=== PATIENT | female | born 1950 | race Caucasian/White ===

== ENCOUNTER 2023-04-09 14:30 | Observation (INO) | payer OTHER ==
[2023-04-09 14:56] LABS: Absolute Lymphocytes (CBC) 1.5 K/uL (0.7-4.9); Hematocrit 39.8 % (36.0-45.0); Lymphocytes % 15.2 % (15.3-44.8); MCV 88.2 fL (80-100); MPV 7.1 fL (7.6-11.3); RBC Red Blood Cell Count 4.51 M/uL (3.86-4.86)
[2023-04-09 14:59] LABS: Protime INR 1.13
[2023-04-09] MEDS ORDERED: ONDANSETRON 4 MG/2 ML VIAL ONE (15:09)
[2023-04-09 15:18] LABS: Albumin 3.4 g/dL (3.4-5.0); Bilirubin Direct 0.1 mg/dL (0-0.2); Bilirubin Indirect, Calculated 0.3 mg/dL (0.2-0.8); Bilirubin Total 0.4 mg/dL (0.2-1.0); Magnesium 2.4 mg/dL (1.6-2.4); Potassium 3.1 mEq/L (3.5-5.1); Protein, Total 7.3 g/dL (6.4-8.2); Troponin High Sensitivity 4.1 pg/mL (<58.9)
--- OUTSIDE RECORDS SUMMARY | 2023-04-09 15:45 | XMS REPORT | Continuity of Care Document ---
:1950 Author Organization [facility] t Address [address] [place] [address] [address] [place] [address] Care Team Providers Name Role Phone Phylicia Gaona MD Primary Care Physician [phone] MARLY BROWN Attending Clinician Unavailable PHYLICIA GAONA Attending Clinician Unavailable Phylicia Gaona MD Attending Clinician [phone] RETA NAM Attending Clinician Unavailable Yanique Estevez PTA Attending Clinician Unavailable Reta Nam MD Attending Clinician Doctor Unassigned, [place] Attending Clinician Unavailable Chacha Oliveira PT Attending Clinician Unavailable NARENDRA ORTEGA Attending Clinician Unavailable NARENDRA ORTEGA Attending Clinician Unavailable Narendra Ortega MD Attending Clinician ABDON DOVE Attending Clinician Unavailable ABDON DOVE Attending Clinician Unavailable Jair Ann MD Attending Clinician Tenisha Klein DO Attending Clinician TENISHA KLEIN Attending Clinician Unavailable TENISHA KLEIN Attending Clinician Unavailable Miesha Long C Attending Clinician Unavailable MIKY NORTON Attending Clinician Unavailable Therapist, [facility] Pulmonary Attending Clinician Unavailable Miky Norton MD Attending Clinician Flavio ALCALA, Nghia Mosquera Attending Clinician NGHIA MUNIZ Attending Clinician Unavailable Cliff Garcia Attending Clinician CLIFF HERNADEZ Attending Clinician Unavailable Unknown, Attending Attending Clinician Unavailable Therapist, [facility] Respiratory Attending Clinician Unavailable Only, Adc Test Attending Clinician Unavailable Madison Benson MD Attending Clinician MADISON BENSON Attending Clinician Unavailable MADISON BENSON Attending Clinician Unavailable CHANEL GREENE Attending Clinician Unavailable Juan ALCALA, Chanel Attending Clinician Lab, [facility] Attending Clinician Unavailable Socorro Talley Attending Clinician Kishore ALCALA, Keenan Attending Clinician DORA NELSON Attending Clinician Unavailable Lewis JUAN, Liliana Smith Attending Clinician Unavailable [facility] Attending Clinician Unavailable Gail FRANCIS, Debbie Attending Clinician Laurent Jack Attending Clinician DEBBIE REYNOLDS Attending Clinician Unavailable JAIR ANN Admitting Clinician Unavailable TENISHA KLEIN Admitting Clinician Unavailable Payers Payer Name Policy Type Policy Number Effective Date Expiration Date S joaquim MEDICARE PART A [id number] 2014 \T\ B 00:00:00 [facility] [id number] 2018 00:00:00 Problems Condition Condition Condition Status Onset Resolution Last Treating Co mments Source Name Details Category Date Date Treatment Clinician Date Essential Essential Disease Active Uni vers tremor tremor 3-06 ity of 00:00: [address] Esophageal Esophageal Disease Active 2015-10 U nivers reflux reflux 2-01 ity of 00:00: [address] Right Right Disease Active Univers shoulder shoulder 5-26 ity of pain pain 00:00: [address] Depression Depression Disease Active 2014-10 U nivers 1-30 ity of 00:00: [address] Allergies, Adverse Reactions, Alerts Allergy Allergy Status Severity Reaction(s) Onset Inactive Treating Comm ents Source Name Type Date Date Clinician Duloxeti Propensi Active Nausea Univer s ne Hcl ty to and/or 12-07 ity of adverse Vomiting 00:00: [place] reaction 00 Medical s Branch DULOXETI DRUG Active Low N/V Univers NE HCL INGREDI 3 ity of 00:00: [place] 00 Medical Branch Sulfa Propensi Active Hives Methodi (Sulfona ty to 12-01 st mide adverse 00:00: Hospita Antibiot reaction 00 l ics) s to drug Sertrali Propensi Active Other (See tremors M ethodi ne ty to Comments) 12-01 adverse 00:00: Hospita reaction 00 l s to drug Sertrali Propensi Active Nausea tremors Unive rs ne ty to and/or 12-01 ity of adverse Vomiting 00:00: [place] reaction 00 Medical s Branch SERTRALI DRUG Active Low N/V Univers NE INGREDI 12-01 ity of 00:00: [place] 00 Medical Branch Sertrali Propensi Active Other - See 2015-10 Got U nivers ne Hcl ty to comments 11-04 tremors ity of adverse 00:00: [place] reaction 00 Medical s Branch SERTRALI DRUG Active Other-Cmnt 2015-10 Univ ers NE HCL INGREDI 11-04 ity of 00:00: [place] 00 Medical Branch Sulfa Propensi Active Rash 2014-10 Univers (Sulfona ty to 1-30 ity of mide adverse 00:00: [place] Antibiot reaction 00 Medica l ics) s Branch SULFA Drug Active Med Rash 2014-10 Univers (SULFONA Class 1-30 ity of MIDE 00:00: [place] ANTIBIOT 00 Medical ICS) Branch Family History Family Member Diagnosis Comments Start Date Stop Date Source Natural father [facility] Social History Social Habit Start Date Stop Date Quantity Comments Source Gender identity 2022-11-10 Identifies as Method ist 20:27:59 female gender Hospital (finding) Sexual orientation 2022-11-10 Heterosexual Meth odist 20:27:59 (finding) Hospital History of tobacco Cigarette Smoker University of use [facility] Exposure to 2023-01-29 2023-02-08 Not sure University SARS-CoV-2 (event) 00:00:00 09:59:00 [facility] Tobacco Comment 2022-12-10 2022-12-10 Uses Nicotine patch University 00:00:00 00:00:00 but cont to smoke [facility] on occasion Branch Cigarette 2022-12-10 2022-12-10 University of pack-years 00:00:00 00:00:00 [facility] Cigarettes smoked 2022-12-10 2022-12-10 Univers ity of current (pack per 00:00:00 00:00:00 [facility] ) - Reported [place] Alcohol intake 2022-12-04 2022-12-04 Current non-drinker M ethodist 00:00:00 00:00:00 of alcohol Hospital (finding) History of Social 2022-12-04 2022-12-[address] function 00:00:00 00:00:00 Hospital Tobacco use and 2022-12-03 2022-12-03 Smokeless tobacco Me thodist exposure 00:00:00 00:00:00 non-user Hospital Alcohol Comment 2022-07-29 2022-07-29 seldom Universit y of 00:00:00 00:00:00 [facility] Sex [birth year] At [birth year] [facility] 00:00:00 00:00:00 Hospital Smoking Status Start Date Stop Date Source Smokes tobacco daily 2022-12-10 00:00:00 Univers ity of [facility] Occasional tobacco smoker 2022-12-03 00:00:00 [facility] Medications Ordered Filled Start Stop Current Ordering Indication Dosage Frequency Signature Comments Components Source Medication Medication Date Date Medication? Clinician (SIG) Name Name propranoloL Yes 60mg Take 1 Univ ers 60 mg 5-08 tablet by ity of tablet 00:00: mouth in [place] 00 the Medical morning. Branch Indication s: [facility] Rx, ~4 yrs ago propranoloL 2022-0 Yes 60mg Take 1 Univ ers 60 mg 5-08 tablet by ity of tablet 00:00: mouth in [place] 00 the Medical morning. Branch Indication s: [facility] Rx, ~4 yrs ago propranoloL 2022-0 Yes 60mg Take 1 Univ ers 60 mg 5-08 tablet by ity of tablet 00:00: mouth in [place] 00 the Medical morning. Branch Indication s: [facility] Rx, ~4 yrs ago propranoloL 2023-0 Yes 60mg Take 1 Univ ers 60 mg 5-08 tablet by ity of tablet 00:00: mouth in [place] 00 the Medical morning. Branch Indication s: [facility] Rx, ~4 yrs ago propranoloL 2023-0 2023- No 60mg Take 60 mg Univers 60 mg -12 05- by mouth ity of tablet 15:00: 00:00 in the [place] 04 :00 morning. Medical Indication Branch s: [facility] Rx, ~4 yrs ago propranoloL 2023-0 2023- No 60mg Take 60 mg Univers 60 mg 01-04- by mouth ity of tablet 15:00: 00:00 in the [place] 04 :00 morning. Medical Indication Branch s: [facility] Rx, ~4 yrs ago DULoxetine 2023-0 Yes [id number] 60mg Take 2 Univers (CYMBALTA) 4-03 capsules ity o f 30 mg 00:00: by mouth [place] capsule 00 in the Medical morning. Branch propranoloL 2023-0 Yes 60mg Take 1 Univ ers 60 mg 4-03 tablet by ity of tablet 00:00: mouth in [place] 00 the Medical morning. Branch Indication s: [facility] Rx, ~4 yrs ago DULoxetine 2023-0 Yes [id number] 60mg Take 2 Univers (CYMBALTA) 4-03 capsules ity o f 30 mg 00:00: by mouth [place] capsule 00 in the Medical morning. Branch propranoloL 2023-0 Yes 60mg Take 1 Univ ers 60 mg 4-03 tablet by ity of tablet 00:00: mouth in [place] 00 the Medical morning. Branch Indication s: [facility] Rx, ~4 yrs ago propranoloL 2023-0 Yes 60mg Take 1 Univ ers 60 mg 4-03 tablet by ity of tablet 00:00: mouth in [place] 00 the Medical morning. Branch Indication s: [facility] Rx, ~4 yrs ago propranoloL 2023-0 Yes 60mg Take 1 Univ ers 60 mg 4-03 tablet by ity of tablet 00:00: mouth in [place] 00 the Medical morning. Branch Indication s: [facility] Rx, ~4 yrs ago propranoloL 2023-0 Yes 60mg Take 1 Univ ers 60 mg 4-03 tablet by ity of tablet 00:00: mouth in [place] 00 the Medical morning. Branch Indication s: [facility] Rx, ~4 yrs ago propranoloL 2023-0 Yes 60mg Take 1 Univ ers 60 mg 4-03 tablet by ity of tablet 00:00: mouth in [place] 00 the Medical morning. Branch Indication s: [facility] Rx, ~4 yrs ago propranoloL 2023-0 Yes 60mg Take 1 Univ ers 60 mg 4-03 tablet by ity of tablet 00:00: mouth in [place] 00 the Medical morning. Branch Indication s: [facility] Rx, ~4 yrs ago propranoloL 2023-0 Yes 60mg Take 1 Univ ers 60 mg 4-03 tablet by ity of tablet 00:00: mouth in [place] 00 the Medical morning. Branch Indication s: [facility] Rx, ~4 yrs ago propranoloL 2023-0 Yes 60mg Take 1 Univ ers 60 mg 4-03 tablet by ity of tablet 00:00: mouth in [place] 00 the Medical morning. Branch Indication s: [facility] Rx, ~4 yrs ago propranoloL 2023-0 2023- No 60mg Take 1 Uni vers 60 mg 4-03 05-08 tablet by ity of tablet 00:00: 00:00 mouth in [place] 00 :00 the Medical morning. Branch Indication s: [facility] Rx, ~4 yrs ago propranoloL 2023-0 2023- No 60mg Take 1 Uni vers 60 mg 4-03 05-08 tablet by ity of tablet 00:00: 00:00 mouth in [place] 00 :00 the Medical morning. Branch Indication s: [facility] Rx, ~4 yrs ago DULoxetine 2022-0 2023- No [id number] 60mg Take 2 Univers (CYMBALTA) 4-03 04-11 capsules ity of 30 mg 00:00: 00:00 by mouth [place] capsule 00 :00 in the Medical morning. Branch DULoxetine 3-0 2023- No [id number] 60mg Take 2 Univers (CYMBALTA) 4-03 04-11 capsules ity of 30 mg 00:00: 00:00 by mouth [place] capsule 00 :00 in the Medical morning. Branch nicotine 21 2022- Yes 1{patch Apply 1 Univers mg/24 hr 3-09 } Patch to ity of patch 09:33: area(s) [place] 31 every 24 Medical (twenty-fo Branch ur) hours. Indication s: reports taking off at night, otherwise has hard time falling asleep nicotine 21 2022- Yes 1{patch Apply 1 Univers mg/24 hr 3-09 } Patch to ity of patch 09:33: area(s) [place] 31 every 24 Medical (twenty- Branch ur) hours. Indication s: reports taking off at night, otherwise has hard time falling asleep nicotine 21 2022- Yes 1{patch Apply 1 Univers mg/24 hr 3-09 } Patch to ity of patch 09:33: area(s) [place] 31 every 24 Medical (twenty- Branch ur) hours. Indication s: reports taking off at night, otherwise has hard time falling asleep nicotine 21 2022- Yes 1{patch Apply 1 Univers mg/24 hr 3-09 } Patch to ity of patch 09:33: area(s) [place] 31 every 24 Medical (twenty- Branch ur) hours. Indication s: reports taking off at night, otherwise has hard time falling asleep budesonide- Yes 2{puff} Q.5D Inhale 2 Methodi formoteroL 3-[address] (Symbicort) 18:22: (two) Hospi ta 160-4.5 03 times a l mcg/actuati day. on inhaler traMADoL Yes [id number] 50mg Q6H Take 1 Method i (ULTRAM) 50 3-03 tablet (50 st mg tablet 18:22: mg total) Hos sarwat 03 by mouth l every 6 (six) hours as needed for moderate pain .acute pain. omeprazole Yes 200mg QD Take 10 Met hodi (PriLOSEC) 3-[address] 20 MG 18:22: (200 mg Hospita capsule 03 total) by l mouth daily. traMADoL 50 2022-0 Yes [id number] 50mg Take 1 Univ ers mg tablet 3-01 tablet by ity o f 00:00: mouth 00 every 8 Medical (eight) Branch hours as needed for Pain (scale 7-10). Indication s: acute pain traMADoL 50 2022-0 Yes [id number] 50mg Take 1 Univ ers mg tablet 3-01 tablet by ity o f 00:00: mouth 00 every 8 Medical (eight) Branch hours as needed for Pain (scale 7-10). Indication s: acute pain traMADoL 50 2023-0 Yes [id number] 50mg Take 1 Univ ers mg tablet 3-01 tablet by ity o f 00:00: mouth [place] 00 every 8 Medical (eight) Branch hours as needed for Pain (scale 7-10). Indication s: acute pain traMADoL 50 2023-0 Yes [id number] 50mg Take 1 Univ ers mg tablet 3-01 tablet by ity o f 00:00: mouth [place] 00 every 8 Medical (eight) Branch hours as needed for Pain (scale 7-10). Indication s: acute pain traMADoL 50 2023-0 Yes [id number] 50mg Take 1 Univ ers mg tablet 3-01 tablet by ity o f 00:00: mouth [place] 00 every 8 Medical (eight) Branch hours as needed for Pain (scale 7-10). Indication s: acute pain traMADoL 50 2023-0 Yes [id number] 50mg Take 1 Univ ers mg tablet 3-01 tablet by ity o f 00:00: mouth [place] 00 every 8 Medical (eight) Branch hours as needed for Pain (scale 7-10). Indication s: acute pain traMADoL 50 2023-0 Yes [id number] 50mg Take 1 Univ ers mg tablet 3-01 tablet by ity o f 00:00: mouth [place] 00 every 8 Medical (eight) Branch hours as needed for Pain (scale 7-10). Indication s: acute pain gabapentin 2023-0 Yes [id number] 100mg Take 1 Univers 100 mg 2-24 capsule by ity of capsule 00:00: mouth in [place] the morning Branch and 1 capsule in the evening. gabapentin 2023-0 Yes [id number] 100mg Take 1 Univers 100 mg 2-24 capsule by ity of capsule 00:00: mouth in [place] the Medical morning Branch and 1 capsule in the evening. gabapentin 2023-0 Yes [id number] 100mg Take 1 Univers 100 mg 2-24 capsule by ity of capsule 00:00: mouth in [place] the morning Branch and 1 capsule in the evening. gabapentin 2023-0 Yes [id number] 100mg Take 1 Univers 100 mg 2-24 capsule by ity of capsule 00:00: mouth in [place] the morning Branch and 1 capsule in the evening. gabapentin 2023-0 Yes [id number] 100mg Take 1 Univers 100 mg 2-24 capsule by ity of capsule 00:00: mouth in [place] [address] the [facility] morning [place] and 1 capsule in the evening. gabapentin 2023-0 Yes [id number] 100mg Take 1 Univers 100 mg 2-24 capsule by ity of capsule 00:00: mouth in [address] morning [place] and 1 capsule in the evening. gabapentin 2023-0 Yes [id number] 100mg Take 1 Univers 100 mg 2-24 capsule by ity of capsule 00:00: mouth in [address] morning [place] and 1 capsule in the evening. gabapentin 2023-0 Yes [id number] 100mg Take 1 Univers 100 mg 2-24 capsule by ity of capsule 00:00: mouth in [address] morning [place] and 1 capsule in the evening. gabapentin 2023-0 Yes [id number] 100mg Take 1 Univers 100 mg 2-24 capsule by ity of capsule 00:00: mouth in [address] morning [place] and 1 capsule in the evening. gabapentin 2023-0 Yes [id number] 100mg Take 1 Univers 100 mg 2-24 capsule by ity of capsule 00:00: mouth in [address] and 1 capsule in the evening. ketorolac 2023-0 2022- No [id number] 60mg Un clarisa (TORADOL) 11-25 ity of injection 18:45: 17:57 [place] 60 mg 00 :00 [facility] ketorolac 3-0 2022- No [id number] 60mg 60 mg, Univers (TORADOL) 11-25 Intramuscu ity of injection 18:45: 17:57 [place], ONCE, [place] 60 mg 00 :00 1 dose, On [facility] 11/25/22 at 1245, Routine ketorolac 3-0 2022- No [id number] 60mg Un clarisa (TORADOL) 11-25 ity of injection 18:45: 17:57 [place] 60 mg 00 :00 [facility] ketorolac 3-0 2022- No [id number] 60mg 60 mg, Univers (TORADOL) 11-25 Intramuscu ity of injection 18:45: 17:57 lar, ONCE, [place] 60 mg 00 :00 1 dose, On [facility] 11/25/22 at 1245, Routine ketorolac 2023-0 2022- No [id number] 60mg Un clarisa (TORADOL) 2-22 02-22 ity of injection 18:45: 17:57 [place] 60 mg 00 :00 Medical Branch ketorolac 3-0 2022- No [id number] 60mg 60 mg, Univers (TORADOL) 11-25 Intramuscu ity of injection 18:45: 17:57 lar, ONCE, [place] 60 mg 00 :00 1 dose, On Medical Wed Branch 11/25/22 at 1245, Routine Ketorolac 2022-0 2022- No [id number] 60mg Un clarisa Tromethamin 11-25 ity of e (TORADOL) 18:30: 17:56 [place] injection 00 :32 Medical syringe 60 Branch mg Ketorolac 2022-0 2022- No [id number] 60mg Un clarisa Tromethamin 11-25 ity of e (TORADOL) 18:30: 17:56 [place] injection 00 :32 Medical syringe 60 Branch mg Ketorolac 3-0 2022- No [id number] 60mg Un clarisa Tromethamin 11-25 ity of e (TORADOL) 18:30: 17:56 [place] injection 00 :32 Medical syringe 60 Branch mg omeprazole 2023-0 Yes 20mg Take 20 mg U nivers 20 mg 2-22 by mouth ity of capsule 11:21: in the [place] [address] morning. Medical Indication Branch s: started again ~1 mth ago, due to indigestio n omeprazole 2023-0 Yes 20mg Take 20 mg U nivers 20 mg 2-22 by mouth ity of capsule 11:21: in the [place] [address] morning. Medical Indication Branch s: started again ~1 mth ago, due to indigestio n omeprazole 2023-0 Yes 20mg Take 20 mg U nivers 20 mg 2-22 by mouth ity of capsule 11:21: in the [place] [address] morning. Medical Indication Branch s: started again ~1 mth ago, due to indigestio n omeprazole 2023-0 Yes 20mg Take 20 mg U nivers 20 mg 2-22 by mouth ity of capsule 11:21: in the [place] [address] morning. Medical Indication Branch s: started again ~1 mth ago, due to indigestio n omeprazole 2023-0 Yes 20mg Take 20 mg U nivers 20 mg 2-22 by mouth ity of capsule 11:21: in the [place] [address] morning. Medical Indication Branch s: started again ~1 mth ago, due to indigestio n omeprazole 2023-0 Yes 20mg Take 20 mg U nivers 20 mg 2-22 by mouth ity of capsule 11:21: in the [place] [address] morning. Medical Indication Branch s: started again ~1 mth ago, due to indigestio n omeprazole 2023-0 Yes 20mg Take 20 mg U nivers 20 mg 2-22 by mouth ity of capsule 11:21: in the [place] [address] morning. Medical Indication Branch s: started again ~1 mth ago, due to indigestio n omeprazole 2023-0 Yes 20mg Take 20 mg U nivers 20 mg 2-22 by mouth ity of capsule 11:21: in the [place] [address] morning. Medical Indication Branch s: started again ~1 mth ago, due to indigestio n omeprazole 2023-0 Yes 20mg Take 20 mg U nivers 20 mg 2-22 by mouth ity of capsule 11:21: in the [place] [address] morning. Medical Indication Branch s: started again ~1 mth ago, due to indigestio n omeprazole 2023-0 Yes 20mg Take 20 mg U nivers 20 mg 2-22 by mouth ity of capsule 11:21: in the [place] [address] morning. Medical Indication Branch s: started again ~1 mth ago, due to indigestio n omeprazole 2023-0 Yes 20mg Take 20 mg U nivers 20 mg 2-22 by mouth ity of capsule 11:21: in the [place] [address] morning. Medical Indication Branch s: started again ~1 mth ago, due to indigestio n omeprazole 2023-0 Yes 20mg Take 20 mg U nivers 20 mg 2-22 by mouth ity of capsule 11:21: in the [place] [address] morning. Medical Indication Branch s: started again ~1 mth ago, due to indigestio n omeprazole 2023-0 Yes 20mg Take 20 mg U nivers 20 mg 2-22 by mouth ity of capsule 11:21: in the [place] [address] morning. Medical Indication Branch s: started again ~1 mth ago, due to indigestio n omeprazole 2023-0 Yes 20mg Take 20 mg U nivers 20 mg 2-22 by mouth ity of capsule 11:21: in the [place] [address] morning. Medical Indication Branch s: started again ~1 mth ago, due to indigestio n omeprazole 2023-0 Yes 20mg Take 20 mg U nivers 20 mg 2-22 by mouth ity of capsule 11:21: in the [place] [address] morning. Medical Indication Branch s: started again ~1 mth ago, due to indigestio n omeprazole 2023-0 Yes 20mg Take 20 mg U nivers 20 mg 2-22 by mouth ity of capsule 11:21: in the [place] [address] morning. Medical Indication Branch s: started again ~1 mth ago, due to indigestio n omeprazole 2023-0 Yes 20mg Take 20 mg U nivers 20 mg 2-22 by mouth ity of capsule 11:21: in the [place] [address] morning. Medical Indication Branch s: started again ~1 mth ago, due to indigestio n omeprazole 2023-0 Yes 20mg Take 20 mg U nivers 20 mg 2-22 by mouth ity of capsule 11:21: in the [place] [address] morning. Medical Indication Branch s: started again ~1 mth ago, due to indigestio n omeprazole 2023-0 Yes 20mg Take 20 mg U nivers 20 mg 2-22 by mouth ity of capsule 11:21: in the [place] [address] morning. Medical Indication Branch s: started again ~1 mth ago, due to indigestio n omeprazole 2023-0 Yes 20mg Take 20 mg U nivers 20 mg 2-22 by mouth ity of capsule 11:21: in the [place] [address] morning. Medical Indication Branch s: started again ~1 mth ago, due to indigestio n omeprazole 2023-0 Yes 20mg Take 20 mg U nivers 20 mg 2-22 by mouth ity of capsule 11:21: in the [place] [address] morning. Medical Indication Branch s: started again ~1 mth ago, due to indigestio n omeprazole 2023-0 Yes 20mg Take 20 mg U nivers 20 mg 2-22 by mouth ity of capsule 11:21: in the [place] [address] morning. Medical Indication Branch s: started again ~1 mth ago, due to indigestio n omeprazole 2023-0 Yes 20mg Take 20 mg U nivers 20 mg 2-22 by mouth ity of capsule 11:21: in the [place] [address] morning. Medical Indication Branch s: started again ~1 mth ago, due to indigestio n omeprazole 3-0 Yes 20mg Take 20 mg U nivers 20 mg 2-22 by mouth ity of capsule 11:21: in the [place] [address] morning. Medical Indication Branch s: started again ~1 mth ago, due to indigestio n omeprazole 2023-0 Yes 20mg Take 20 mg U nivers 20 mg 2-22 by mouth ity of capsule 11:21: in the [place] [address] morning. Medical Indication Branch s: started again ~1 mth ago, due to indigestio n methylPREDN 2023-0 Yes [id number] Take by Univers ISolone 4 2-22 mouth ity of mg tablets 00:00: [place]-INSTRU [place] 00 CTIONS. Medical follow Branch package directions methylPREDN 2023-0 Yes [id number] Take by Univers ISolone 4 2-22 mouth ity of mg tablets 00:00: SEE-INSTRU [place] 00 CTIONS. Medical follow Branch package directions methylPREDN 2023-0 Yes [id number] Take by Univers ISolone 4 2-22 mouth ity of mg tablets 00:00: SEE-INSTRU [place] 00 CTIONS. Medical follow Branch package directions methylPREDN 2023-0 Yes [id number] Take by Univers ISolone 4 2-22 mouth ity of mg tablets 00:00: SEE-INSTRU [place] 00 CTIONS. Medical follow Branch package directions methylPREDN 2023-0 Yes [id number] Take by Univers ISolone 4 2-22 mouth ity of mg tablets 00:00: SEE-INSTRU [place] 00 CTIONS. Medical follow Branch package directions methylPREDN 2023-0 Yes [id number] Take by Univers ISolone 4 2-22 mouth ity of mg tablets 00:00: SEE-INSTRU [place] 00 CTIONS. Medical follow Branch package directions methylPREDN 2023-0 Yes [id number] Take by Univers ISolone 4 2-22 mouth ity of mg tablets 00:00: SEE-INSTRU [place] 00 CTIONS. Medical follow Branch package directions methylPREDN 2023-0 Yes [id number] Take by Univers ISolone 4 2-22 mouth ity of mg tablets 00:00: SEE-INSTRU [place] 00 CTIONS. Medical follow Branch package directions methylPREDN 2023-0 Yes [id number] Take by Univers ISolone 4 -22 mouth ity of mg tablets 00:00: SEE-INSTRU [place] 00 CTIONS. Medical follow Branch package directions methylPREDN 2022-0 Yes [id number] Take by [facility] ISolone 4 -22 mouth ity of mg tablets 00:00: SEE-INSTRU [place] 00 CTIONS. Medical follow Branch package directions methylPREDN 2022-0 2022- No [id number] Take by [facility] 4 11-25-09 mouth ity of mg tablets 00:00: 00:00 SEE-INSTRU [place] 00 :00 CTIONS. Medical follow Branch package directions methylPREDN 2022-0 2022- No [id number] Take by [facility] 4 11-25- mouth ity of mg tablets 00:00: 00:00 SEE-INSTRU [place] 00 :00 CTIONS. Medical follow Branch package directions traMADoL 50 2022-2022- No [id number] 50mg Take 1 Uni vers mg tablet 11-25 tablet by ity of 00:00: 05:59 mouth [place] 00 :00 every 8 Medical (eight) Branch hours as needed for Pain (scale 7-10) for up to 7 days. Indication s: acute pain traMADoL 50 2022-0 2022- No [id number] 50mg Take 1 Uni vers mg tablet 11-25 tablet by ity of 00:00: 05:59 mouth [place] 00 :00 every 8 Medical (eight) Branch hours as needed for Pain (scale 7-10) for up to 7 days. Indication s: acute pain traMADoL 50 2022-0 2022- No [id number] 50mg Take 1 Uni vers mg tablet 11-25- tablet by ity of 00:00: 05:59 mouth [place] 00 :00 every 8 Medical (eight) Branch hours as needed for Pain (scale 7-10) for up to 7 days. Indication s: acute pain traMADoL 50 2022-0 2022- No 4647 50mg Take 1 [facility] vers mg tablet 11-25 tablet by ity of 00:00: 05:59 mouth [place] 00 :00 every 8 Medical (eight) Branch hours as needed for Pain (scale 7-10) for up to 7 days. Indication s: acute pain traMADoL 50 2022-0 2022- No 4647 50mg Take 1 [facility] vers mg tablet 11-25 tablet by ity of 00:00: 05:59 mouth [place] 00 :00 every 8 Medical (eight) Branch hours as needed for Pain (scale 7-10) for up to 7 days. Indication s: acute pain traMADoL 50 2022-0 2022- No 4647 50mg Take 1 [facility] vers mg tablet 11-25 tablet by ity of 00:00: 05:59 mouth [place] 00 :00 every 8 Medical (eight) Branch hours as needed for Pain (scale 7-10) for up to 7 days. Indication s: acute pain traMADoL 50 2022-0 2022- No 4647 50mg Take 1 [facility] vers mg tablet 11-25 tablet by ity of 00:00: 00:00 mouth [place] 00 :00 every 8 Medical (eight) Branch hours as needed for Pain (scale 7-10) for up to 7 days. Indication s: acute pain traMADoL 50 2022-0 2022- No 4647 50mg Take 1 [facility] vers mg tablet 11-25 tablet by ity of 00:00: 00:00 mouth [place] 00 :00 every 8 Medical (eight) Branch hours as needed for Pain (scale 7-10) for up to 7 days. Indication s: acute pain omeprazole 2021-10 Yes 20mg Take 20 mg U nivers 20 mg 2-30 by mouth ity of capsule 15:19: in the [place] morning. Medical Indication Branch s: started again ~1 mth ago, due to indigestio n omeprazole 2021-10 Yes 20mg Take 20 mg U nivers 20 mg 2-30 by mouth ity of capsule 15:19: in the [place] morning. Medical Indication Branch s: started again ~1 mth ago, due to indigestio n omeprazole 2021-10 Yes 20mg Take 20 mg U nivers 20 mg 2-30 by mouth ity of capsule 15:19: in the [place] morning. Medical Indication Branch s: started again ~1 mth ago, due to indigestio n omeprazole 2021-10 Yes 20mg Take 20 mg U nivers 20 mg 2-30 by mouth ity of capsule 15:19: in the [place] morning. Medical Indication Branch s: started again ~1 mth ago, due to indigestio n omeprazole 2021-10 Yes 20mg Take 20 mg U nivers 20 mg 2-30 by mouth ity of capsule 15:19: in the [place] 02 morning. Medical Indication Branch s: started again ~1 mth ago, due to indigestio n omeprazole 2021-10 Yes 20mg Take 20 mg U nivers 20 mg 2-30 by mouth ity of capsule 15:19: in the [place] 02 morning. Medical Indication Branch s: started again ~1 mth ago, due to indigestio n omeprazole 2021-10 Yes 20mg Take 20 mg U nivers 20 mg 2-30 by mouth ity of capsule 15:19: in the [place] 02 morning. Medical Indication Branch s: started again ~1 mth ago, due to indigestio n nicotine 2021-10 Yes 1{patch Apply 1 [facility] mg/24 hr 2-05 } Patch to ity of patch 10:45: area(s) [place] [address] every 24 Medical ([facility] ur) hours. Indication s: reports taking off at night, otherwise has hard time falling asleep propranoloL 2021-10 Yes 60mg Take 60 mg [facility] 60 mg 2-05 by mouth ity of tablet 10:45: in the [place] [address] morning. Medical Indication Branch s: [facility] Rx, ~4 yrs ago nicotine 2021-10 Yes 1{patch Apply 1 [facility] mg/24 hr 2-05 } Patch to ity of patch 10:45: area() [place] [address] every 24 Medical ([facility] ur) hours. Indication s: reports taking off at night, otherwise has hard time falling asleep propranoloL 2021-10 Yes 60mg Take 60 mg [facility] 60 mg 2-05 by mouth ity of tablet 10:45: in the [place] [address] morning. Medical Indication Branch s: [facility] Rx, ~4 yrs ago nicotine 2021-10 Yes 1{patch Apply 1 [facility] mg/24 hr 2-05 } Patch to ity of patch 10:45: area(s) [place] [address] every 24 Medical ([facility] ur) hours. Indication s: reports taking off at night, otherwise has hard time falling asleep propranoloL 2021-10 Yes 60mg Take 60 mg [facility] 60 mg 2-05 by mouth ity of tablet 10:45: in the [place] [address] morning. Medical Indication Branch s: [facility] Rx, ~4 yrs ago nicotine 2021-10 Yes 1{patch Apply 1 [facility] mg/24 hr 2-05 } Patch to ity of patch 10:45: area(s) [place] 56 every 24 Medical ([facility] ur) hours. Indication s: reports taking off at night, otherwise has hard time falling asleep propranoloL 2021-10 Yes 60mg Take 60 mg [facility] 60 mg 2-05 by mouth ity of tablet 10:45: in the [place] 56 morning. Medical Indication Branch s: [facility] Rx, ~4 yrs ago nicotine 2021-10 Yes 1{patch Apply 1 [facility] mg/24 hr 2-05 } Patch to ity of patch 10:45: area(s) [place] 56 every 24 Medical ([facility] ur) hours. Indication s: reports taking off at night, otherwise has hard time falling asleep propranoloL 2021-10 Yes 60mg Take 60 mg [facility] 60 mg 2-05 by mouth ity of tablet 10:45: in the [place] [address] morning. Medical Indication Branch s: [facility] Rx, ~4 yrs ago nicotine 2021-10 Yes 1{patch Apply 1 [facility] mg/24 hr 2-05 } Patch to ity of patch 10:45: area(s) [place] [address] every 24 Medical ([facility] ur) hours. Indication s: reports taking off at night, otherwise has hard time falling asleep propranoloL 2021-10 Yes 60mg Take 60 mg [facility] 60 mg 2-05 by mouth ity of tablet 10:45: in the [place] [address] morning. Medical Indication Branch s: [facility] Rx, ~4 yrs ago nicotine 2021-10 Yes 1{patch Apply 1 [facility] mg/24 hr 2-05 } Patch to ity of patch 10:45: area(s) [place] 56 every 24 Medical ([facility] ur) hours. Indication s: reports taking off at night, otherwise has hard time falling asleep propranoloL 2021-10 Yes 60mg Take 60 mg [facility] 60 mg 2-05 by mouth ity of tablet 10:45: in the [place] 56 morning. Medical Indication Branch s: [facility] Rx, ~4 yrs ago nicotine 2021-10 Yes 1{patch Apply 1 [facility] mg/24 hr 2-05 } Patch to ity of patch 10:45: area(s) [place] 56 every 24 Medical ([facility] ur) hours. Indication s: reports taking off at night, otherwise has hard time falling asleep propranoloL 2021-10 Yes 60mg Take 60 mg [facility] 60 mg 2-05 by mouth ity of tablet 10:45: in the [place] [address] morning. Medical Indication Branch s: [facility] Rx, ~4 yrs ago nicotine 2021-10 Yes 1{patch Apply 1 [facility] mg/24 hr 2-05 } Patch to ity of patch 10:45: area(s) [place] [address] every 24 Medical ([facility] ur) hours. Indication s: reports taking off at night, otherwise has hard time falling asleep propranoloL 2021-10 Yes 60mg Take 60 mg [facility] 60 mg 2-05 by mouth ity of tablet 10:45: in the [place] [address] morning. Medical Indication Branch s: [facility] Rx, ~4 yrs ago nicotine 2021-10 Yes 1{patch Apply 1 [facility] mg/24 hr 2-05 } Patch to ity of patch 10:45: area(s) [place] [address] every 24 Medical ([facility] ) hours. Indication s: reports taking off at night, otherwise has hard time falling asleep propranoloL 2021-10 Yes 60mg Take 60 mg [facility] 60 mg 2-05 by mouth ity of tablet 10:45: in the [place] [address] morning. Medical Indication Branch s: [facility] Rx, ~4 yrs ago nicotine 2021-10 Yes 1{patch Apply 1 [facility] mg/24 hr 2-05 } Patch to ity of patch 10:45: area(s) [place] [address] every 24 Medical ([facility]) hours. Indication s: reports taking off at night, otherwise has hard time falling asleep propranoloL 2021-10 Yes 60mg Take 60 mg [facility] 60 mg 2-05 by mouth ity of tablet 10:45: in the [place] [address] morning. Medical Indication Branch s: [facility] Rx, ~4 yrs ago nicotine 2021-10 Yes 1{patch Apply 1 [facility] mg/24 hr 2-05 } Patch to ity of patch 10:45: area(s) [place] [address] every 24 Medical ([facility] ur) hours. Indication s: reports taking off at night, otherwise has hard time falling asleep propranoloL 2021-10 Yes 60mg Take 60 mg [facility] 60 mg 2-05 by mouth ity of tablet 10:45: in the [place] [address] morning. Medical Indication Branch s: [facility] Rx, ~4 yrs ago nicotine 2021-10 Yes 1{patch Apply 1 [facility] mg/24 hr 2-05 } Patch to ity of patch 10:45: area(s) [place] [address] every 24 Medical ([facility] ur) hours. Indication s: reports taking off at night, otherwise has hard time falling asleep propranoloL 2021-10 Yes 60mg Take 60 mg [facility] 60 mg 2-05 by mouth ity of tablet 10:45: in the [place] [address] morning. Medical Indication Branch s: [facility] Rx, ~4 yrs ago nicotine 2021-10 Yes 1{patch Apply 1 [facility] mg/24 hr 2-05 } Patch to ity of patch 10:45: area(s) [place] [address] every 24 Medical ([facility] ur) hours. Indication s: reports taking off at night, otherwise has hard time falling asleep propranoloL 2021-10 Yes 60mg Take 60 mg [facility] 60 mg 2-05 by mouth ity of tablet 10:45: in the [place] [address] morning. Medical Indication Branch s: [facility] Rx, ~4 yrs ago nicotine 2021-10 Yes 1{patch Apply 1 [facility] mg/24 hr 2-05 } Patch to ity of patch 10:45: area(s) [place] [address] every 24 Medical ([facility] ur) hours. Indication s: reports taking off at night, otherwise has hard time falling asleep propranoloL 2021-10 Yes 60mg Take 60 mg [facility] 60 mg 2-05 by mouth ity of tablet 10:45: in the [place] [address] morning. Medical Indication Branch s: [facility] Rx, ~4 yrs ago nicotine 2021-10 Yes 1{patch Apply 1 [facility] mg/24 hr 2-05 } Patch to ity of patch 10:45: area(s) [place] [address] every 24 Medical ([facility] ur) hours. Indication s: reports taking off at night, otherwise has hard time falling asleep propranoloL 2021-10 Yes 60mg Take 60 mg [facility] 60 mg 2-05 by mouth ity of tablet 10:45: in the [place] [address] morning. Medical Indication Branch s: [facility] Rx, ~4 yrs ago nicotine 2021-10 Yes 1{patch Apply 1 [facility] mg/24 hr 2-05 } Patch to ity of patch 10:45: area(s) [place] [address] every 24 Medical ([facility] ur) hours. Indication s: reports taking off at night, otherwise has hard time falling asleep propranoloL 2021-10 Yes 60mg Take 60 mg [facility] 60 mg 2-05 by mouth ity of tablet 10:45: in the [place] [address] morning. Medical Indication Branch s: [facility] Rx, ~4 yrs ago nicotine 2021-10 Yes 1{patch Apply 1 [facility] mg/24 hr 2-05 } Patch to ity of patch 10:45: area(s) [place] [address] every 24 Medical ([facility] ur) hours. Indication s: reports taking off at night, otherwise has hard time falling asleep propranoloL 2021-10 Yes 60mg Take 60 mg [facility] 60 mg 2-05 by mouth ity of tablet 10:45: in the [place] [address] morning. Medical Indication Branch s: [facility] Rx, ~4 yrs ago nicotine 2021-10 Yes 1{patch Apply 1 [facility] mg/24 hr 2-05 } Patch to ity of patch 10:45: area(s) [place] [address] every 24 Medical ([facility] ur) hours. Indication s: reports taking off at night, otherwise has hard time falling asleep propranoloL 2021-10 Yes 60mg Take 60 mg [facility] 60 mg 2-05 by mouth ity of tablet 10:45: in the [place] [address] morning. Medical Indication Branch s: [facility] Rx, ~4 yrs ago nicotine 2021-10 Yes 1{patch Apply 1 [facility] mg/24 hr 2-05 } Patch to ity of patch 10:45: area(s) [place] [address] every 24 Medical ([facility] ur) hours. Indication s: reports taking off at night, otherwise has hard time falling asleep propranoloL 2021-10 Yes 60mg Take 60 mg [facility] 60 mg 2-05 by mouth ity of tablet 10:45: in the [place] [address] morning. Medical Indication Branch s: [facility] Rx, ~4 yrs ago nicotine 2021-10 Yes 1{patch Apply 1 [facility] mg/24 hr 2-05 } Patch to ity of patch 10:45: area(s) [place] 56 every 24 Medical ([facility] ur) hours. Indication s: reports taking off at night, otherwise has hard time falling asleep propranoloL 2021-10 Yes 60mg Take 60 mg [facility] 60 mg 2-05 by mouth ity of tablet 10:45: in the [place] [address] morning. Medical Indication Branch s: [facility] Rx, ~4 yrs ago nicotine 2021-10 Yes 1{patch Apply 1 [facility] mg/24 hr 2-05 } Patch to ity of patch 10:45: area(s) [place] [address] every 24 Medical ([facility] ur) hours. Indication s: reports taking off at night, otherwise has hard time falling asleep propranoloL 2021-10 Yes 60mg Take 60 mg [facility] 60 mg 2-05 by mouth ity of tablet 10:45: in the [place] [address] morning. Medical Indication Branch s: [facility] Rx, ~4 yrs ago nicotine 2021-10 Yes 1{patch Apply 1 [facility] mg/24 hr 2-05 } Patch to ity of patch 10:45: area(s) [place] [address] every 24 Medical ([facility] ur) hours. Indication s: reports taking off at night, otherwise has hard time falling asleep propranoloL 2021-10 Yes 60mg Take 60 mg [facility] 60 mg 2-05 by mouth ity of tablet 10:45: in the [place] [address] morning. Medical Indication Branch s: [facility] Rx, ~4 yrs ago nicotine 2021-10 Yes 1{patch Apply 1 [facility] mg/24 hr 2-05 } Patch to ity of patch 10:45: area(s) [place] [address] every 24 Medical ([facility] ur) hours. Indication s: reports taking off at night, otherwise has hard time falling asleep propranoloL 2021-10 Yes 60mg Take 60 mg [facility] 60 mg 2-05 by mouth ity of tablet 10:45: in the [place] [address] morning. Medical Indication Branch s: [facility] Rx, ~4 yrs ago nicotine 2021-10 Yes 1{patch Apply 1 [facility] mg/24 hr 2-05 } Patch to ity of patch 10:45: area(s) [place] [address] every 24 Medical ([facility] ur) hours. Indication s: reports taking off at night, otherwise has hard time falling asleep propranoloL 2021-10 Yes 60mg Take 60 mg [facility] 60 mg 2-05 by mouth ity of tablet 10:45: in the [place] [address] morning. Medical Indication Branch s: [facility] Rx, ~4 yrs ago nicotine 2021-10 Yes 1{patch Apply 1 [facility] mg/24 hr 2-05 } Patch to ity of patch 10:45: area(s) [place] 56 every 24 Medical ([facility] ur) hours. Indication s: reports taking off at night, otherwise has hard time falling asleep propranoloL 2021-10 Yes 60mg Take 60 mg [facility] 60 mg 2-05 by mouth ity of tablet 10:45: in the [place] [address] morning. Medical Indication Branch s: [facility] Rx, ~4 yrs ago nicotine 2021-10 Yes 1{patch Apply 1 [facility] mg/24 hr 2-05 } Patch to ity of patch 10:45: area(s) [place] 56 every 24 Medical ([facility] ur) hours. Indication s: reports taking off at night, otherwise has hard time falling asleep propranoloL 2021-10 Yes 60mg Take 60 mg [facility] 60 mg 2-05 by mouth ity of tablet 10:45: in the [place] [address] morning. Medical Indication Branch s: [facility] Rx, ~4 yrs ago nicotine 2021-10 Yes 1{patch Apply 1 [facility] mg/24 hr 2-05 } Patch to ity of patch 10:45: area(s) [place] 56 every 24 Medical ([facility] ur) hours. Indication s: reports taking off at night, otherwise has hard time falling asleep propranoloL 2021-10 Yes 60mg Take 60 mg [facility] 60 mg 2-05 by mouth ity of tablet 10:45: in the [place] [address] morning. Medical Indication Branch s: [facility] Rx, ~4 yrs ago nicotine 2021-10 Yes 1{patch Apply 1 [facility] mg/24 hr 2-05 } Patch to ity of patch 10:45: area(s) [place] 56 every 24 Medical ([facility] ur) hours. Indication s: reports taking off at night, otherwise has hard time falling asleep propranoloL 2021-10 Yes 60mg Take 60 mg [facility] 60 mg 2-05 by mouth ity of tablet 10:45: in the [place] 56 morning. Medical Indication Branch s: [facility] Rx, ~4 yrs ago nicotine 2021-10 Yes 1{patch Apply 1 [facility] mg/24 hr 2-05 } Patch to ity of patch 10:45: area(s) [place] 56 every 24 Medical ([facility] ) hours. Indication s: reports taking off at night, otherwise has hard time falling asleep propranoloL 2021-10 Yes 60mg Take 60 mg [facility] 60 mg 2-05 by mouth ity of tablet 10:45: in the [place] [address] morning. Medical Indication Branch s: [facility] Rx, ~4 yrs ago nicotine 2021-10 Yes 1{patch Apply 1 [facility] mg/24 hr 2-05 } Patch to ity of patch 10:45: area(s) [place] [address] every 24 Medical ([facility]) hours. Indication s: reports taking off at night, otherwise has hard time falling asleep propranoloL 2021-10 Yes 60mg Take 60 mg [facility] 60 mg 2-05 by mouth ity of tablet 10:45: in the [place] [address] morning. Medical Indication Branch s: [facility] Rx, ~4 yrs ago nicotine 2021-10 Yes 1{patch Apply 1 [facility] mg/24 hr 2-05 } Patch to ity of patch 10:45: area(s) [place] [address] every 24 Medical ([facility]) hours. Indication s: reports taking off at night, otherwise has hard time falling asleep propranoloL 2021-10 Yes 60mg Take 60 mg [facility] 60 mg 2-05 by mouth ity of tablet 10:45: in the [place] [address] morning. Medical Indication Branch s: [facility] Rx, ~4 yrs ago nicotine 2021-10 Yes 1{patch Apply 1 [facility] mg/24 hr 2-05 } Patch to ity of patch 10:45: area(s) [place] [address] every 24 Medical ([facility]) hours. Indication s: reports taking off at night, otherwise has hard time falling asleep propranoloL 2021-10 Yes 60mg Take 60 mg [facility] 60 mg 2-05 by mouth ity of tablet 10:45: in the [place] [address] morning. Medical Indication Branch s: [facility] Rx, ~4 yrs ago nicotine 2021-10 Yes 1{patch Apply 1 [facility] mg/24 hr 2-05 } Patch to ity of patch 10:45: area(s) [place] [address] every 24 Medical ([facility] ) hours. Indication s: reports taking off at night, otherwise has hard time falling asleep propranoloL 2021-10 Yes 60mg Take 60 mg [facility] 60 mg 2-05 by mouth ity of tablet 10:45: in the [place] [address] morning. Medical Indication Branch s: [facility] Rx, ~4 yrs ago nicotine 2021-10 Yes 1{patch Apply 1 [facility] mg/24 hr 2-05 } Patch to ity of patch 10:45: area(s) [place] [address] every 24 Medical ([facility] ur) hours. Indication s: reports taking off at night, otherwise has hard time falling asleep propranoloL 2021-10 Yes 60mg Take 60 mg [facility] 60 mg 2-05 by mouth ity of tablet 10:45: in the [place] [address] morning. Medical Indication Branch s: [facility] Rx, ~4 yrs ago propranoloL 2021-10 Yes 60mg Take 60 mg [facility] 60 mg 2-05 by mouth ity of tablet 10:45: in the [place] [address] morning. Medical Indication Branch s: [facility] Rx, ~4 yrs ago propranoloL 2021-10 Yes 60mg Take 60 mg [facility] 60 mg 2-05 by mouth ity of tablet 10:45: in the [place] [address] morning. Medical Indication Branch s: [facility] Rx, ~4 yrs ago benzonatate 2021-10 Yes [id number] 100mg Take 1 [facility] 100 mg 1-21 capsule by ity of capsule 00:00: mouth 3 [place] [address] (three) Medical times Branch daily as needed for Cough. benzonatate 2021-10 Yes [id number] 100mg Take 1 [facility] 100 mg 1-21 capsule by ity of capsule 00:00: mouth 3 [place] 00 (three) Medical times Branch daily as needed for Cough. benzonatate 2021-10 Yes [id number] 100mg Take 1 [facility] 100 mg 1-21 capsule by ity of capsule 00:00: mouth 3 [place] 00 (three) Medical times Branch daily as needed for Cough. benzonatate 2021-10 Yes [id number] 100mg Take 1 [facility] 100 mg 1-21 capsule by ity of capsule 00:00: mouth 3 [place] 00 (three) Medical times Branch daily as needed for Cough. benzonatate 2021-10 Yes [id number] 100mg Take 1 [facility] 100 mg 1-21 capsule by ity of capsule 00:00: mouth 3 [place] 00 (three) Medical times Branch daily as needed for Cough. benzonatate 2021-10 Yes [id number] 100mg Take 1 [facility] 100 mg 1-21 capsule by ity of capsule 00:00: mouth 3 (three) Medical times Branch daily as needed for Cough. benzonatate 2021-10 Yes [id number] 100mg Take 1 [facility] 100 mg 1-21 capsule by ity of capsule 00:00: mouth 3 (three) Medical times Branch daily as needed for Cough. benzonatate 2021-10 Yes [id number] 100mg Take 1 [facility] 100 mg 1-21 capsule by ity of capsule 00:00: mouth (three) Medical times Branch daily as needed for Cough. benzonatate 2021-10 Yes [id number] 100mg Take 1 [facility] 100 mg 1-21 capsule by ity of capsule 00:00: mouth (three) Medical times Branch daily as needed for Cough. benzonatate 2021-10 Yes [id number] 100mg Take 1 [facility] 100 mg 1-21 capsule by ity of capsule 00:00: mouth (three) Medical times Branch daily as needed for Cough. benzonatate 2021-10 Yes [id number] 100mg Take 1 [facility] 100 mg 1-21 capsule by ity of capsule 00:00: mouth (three) Medical times Branch daily as needed for Cough. benzonatate 2021-10 Yes [id number] 100mg Take 1 [facility] 100 mg 1-21 capsule by ity of capsule 00:00: mouth (three) Medical times Branch daily as needed for Cough. benzonatate 2021-10 Yes [id number] 100mg Take 1 [facility] 100 mg 1-21 capsule by ity of capsule 00:00: mouth (three) Medical times Branch daily as needed for Cough. benzonatate 2021-10 Yes [id number] 100mg Take 1 [facility] 100 mg 1-21 capsule by ity of capsule 00:00: mouth (three) Medical times Branch daily as needed for Cough. benzonatate 2021-10 Yes [id number] 100mg Take 1 [facility] 100 mg 1-21 capsule by ity of capsule 00:00: mouth 3 (three) Medical times Branch daily as needed for Cough. benzonatate 2021-10 Yes [id number] 100mg Take 1 [facility] 100 mg 1-21 capsule by ity of capsule 00:00: mouth 3 (three) Medical times Branch daily as needed for Cough. benzonatate 2021-10 Yes [id number] 100mg Take 1 [facility] 100 mg 1-21 capsule by ity of capsule 00:00: mouth (three) Medical times Branch daily as needed for Cough. benzonatate 2021-10 Yes [id number] 100mg Take 1 [facility] 100 mg 1-21 capsule by ity of capsule 00:00: mouth (three) Medical times Branch daily as needed for Cough. benzonatate 2021-10 Yes [id number] 100mg Take 1 [facility] 100 mg 1-21 capsule by ity of capsule 00:00: mouth (three) Medical times Branch daily as needed for Cough. benzonatate 2021-10 Yes [id number] 100mg Take 1 [facility] 100 mg 1-21 capsule by ity of capsule 00:00: mouth (three) Medical times Branch daily as needed for Cough. benzonatate 2021-10 Yes [id number] 100mg Take 1 [facility] 100 mg 1-21 capsule by ity of capsule 00:00: mouth (three) Medical times Branch daily as needed for Cough. benzonatate 2021-10 Yes [id number] 100mg Take 1 [facility] 100 mg 1-21 capsule by ity of capsule 00:00: mouth (three) Medical times Branch daily as needed for Cough. benzonatate 2021-10 Yes [id number] 100mg Take 1 [facility] 100 mg 1-21 capsule by ity of capsule 00:00: mouth (three) Medical times Branch daily as needed for Cough. benzonatate 2021-10 Yes [id number] 100mg Take 1 [facility] 100 mg 1-21 capsule by ity of capsule 00:00: mouth (three) Medical times Branch daily as needed for Cough. benzonatate 2021-10 Yes [id number] 100mg Take 1 [facility] 100 mg 1-21 capsule by ity of capsule 00:00: mouth (three) Medical times Branch daily as needed for Cough. benzonatate 2021-10 Yes [id number] 100mg Take 1 [facility] 100 mg 1-21 capsule by ity of capsule 00:00: mouth (three) Medical times Branch daily as needed for Cough. benzonatate 2021-10 Yes [id number] 100mg Take 1 [facility] 100 mg 1-21 capsule by ity of capsule 00:00: mouth 3 (three) Medical times Branch daily as needed for Cough. benzonatate 2021-10 Yes [id number] 100mg Take 1 [facility] 100 mg 1-21 capsule by ity of capsule 00:00: mouth 3 (three) Medical times Branch daily as needed for Cough. benzonatate 2021-10 Yes [id number] 100mg Take 1 [facility] 100 mg 1-21 capsule by ity of capsule 00:00: mouth 3 (three) Medical times Branch daily as needed for Cough. benzonatate 2021-10 Yes [id number] 100mg Take 1 [facility] 100 mg 1-21 capsule by ity of capsule 00:00: mouth 3 (three) Medical times Branch daily as needed for Cough. benzonatate 2021-10 Yes [id number] 100mg Take 1 [facility] 100 mg 1-21 capsule by ity of capsule 00:00: mouth 3 (three) Medical times Branch daily as needed for Cough. benzonatate 2021-10 Yes [id number] 100mg Take 1 [facility] 100 mg 1-21 capsule by ity of capsule 00:00: mouth 3 (three) Medical times Branch daily as needed for Cough. benzonatate 2021-10 Yes [id number] 100mg Take 1 [facility] 100 mg 1-21 capsule by ity of capsule 00:00: mouth 3 (three) Medical times Branch daily as needed for Cough. benzonatate 2021-10 Yes [id number] 100mg Take 1 [facility] 100 mg 1-21 capsule by ity of capsule 00:00: mouth 3 (three) Medical times Branch daily as needed for Cough. benzonatate 2021-10 Yes [id number] 100mg Take 1 [facility] 100 mg 1-21 capsule by ity of capsule 00:00: mouth 3 (three) Medical times Branch daily as needed for Cough. benzonatate 2021-10 Yes [id number] 100mg Take 1 [facility] 100 mg 1-21 capsule by ity of capsule 00:00: mouth 3 00 (three) Medical times Branch daily as needed for Cough. benzonatate 2021-10 Yes [id number] 100mg Take 1 [facility] 100 mg 1-21 capsule by ity of capsule 00:00: mouth 3 (three) Medical times Branch daily as needed for Cough. benzonatate 2021-10 Yes [id number] 100mg Take 1 [facility] 100 mg 1-21 capsule by ity of capsule 00:00: mouth (three) Medical times Branch daily as needed for Cough. benzonatate 2021-10 Yes [id number] 100mg Take 1 [facility] 100 mg 1-21 capsule by ity of capsule 00:00: mouth (three) Medical times Branch daily as needed for Cough. benzonatate 2021-10 Yes [id number] 100mg Take 1 [facility] 100 mg 1-21 capsule by ity of capsule 00:00: mouth (three) Medical times Branch daily as needed for Cough. benzonatate 2021-10 Yes [id number] 100mg Take 1 [facility] 100 mg 1-21 capsule by ity of capsule 00:00: mouth (three) Medical times Branch daily as needed for Cough. benzonatate 2021-10 Yes [id number] 100mg Take 1 [facility] 100 mg 1-21 capsule by ity of capsule 00:00: mouth (three) Medical times Branch daily as needed for Cough. benzonatate 2021-10 Yes [id number] 100mg Take 1 [facility] 100 mg 1-21 capsule by ity of capsule 00:00: mouth (three) Medical times Branch daily as needed for Cough. benzonatate 2021-10 Yes [id number] 100mg Take 1 [facility] 100 mg 1-21 capsule by ity of capsule 00:00: mouth (three) Medical times Branch daily as needed for Cough. benzonatate 2021-10 Yes [id number] 100mg Take 1 [facility] 100 mg 1-21 capsule by ity of capsule 00:00: mouth (three) Medical times Branch daily as needed for Cough. benzonatate 2021-10 Yes [id number] 100mg Take 1 [facility] 100 mg 1-21 capsule by ity of capsule 00:00: mouth (three) Medical times Branch daily as needed for Cough. benzonatate 2021-10 Yes [id number] 100mg Take 1 [facility] 100 mg 1-21 capsule by ity of capsule 00:00: mouth (three) Medical times Branch daily as needed for Cough. benzonatate 2021-10 Yes [id number] 100mg Take 1 [facility] 100 mg 1-21 capsule by ity of capsule 00:00: mouth 3 [place] 00 (three) Medical times Branch daily as needed for Cough. benzonatate 2021-10 Yes [id number] 100mg Take 1 [facility] 100 mg 1-21 capsule by ity of capsule 00:00: mouth 3 [place] 00 (three) Medical times Branch daily as needed for Cough. predniSONE 2021-10- No [id number] 40mg Take 2 [facility] 20 mg 1-21 11-27 tablets by ity of tablet 00:00: 05:59 mouth in [place] 00 :00 the [facility] morning Branch for 5 days. levoFLOXaci 2021-10- No [id number] 500mg Take 1 [facility] n 500 mg 1-21 11-27 tablet by ity o f tablet 00:00: 05:59 mouth [place] 00 :00 every 24 Medical ([facility] ur) hours for 5 days. predniSONE 2021-10- No [id number] 40mg Take 2 [facility] 20 mg 1-21 11-27 tablets by ity of tablet 00:00: 05:59 mouth in [place] 00 :00 the [facility] for 5 days. levoFLOXaci 2021-10- No [id number] 500mg Take 1 [facility] n 500 mg 1-21 11-27 tablet by ity o f tablet 00:00: 05:59 mouth [place] 00 :00 every 24 Medical ([facility] ur) hours for 5 days. predniSONE 2021-10- No [id number] 40mg Take 2 [facility] 20 mg 1-21 11-27 tablets by ity of tablet 00:00: 05:59 mouth in [place] 00 :00 the [facility] morning Branch for 5 days. levoFLOXaci 2021-10- No [id number] 500mg Take 1 [facility] n 500 mg 1-21 11-27 tablet by ity o f tablet 00:00: 05:59 mouth [place] 00 :00 every 24 Medical ([facility] ur) hours for 5 days. predniSONE 2021-10- No [id number] 40mg Take 2 [facility] 20 mg 1-21 11-27 tablets by ity of tablet 00:00: 05:59 mouth in [place] 00 :00 the [facility] morning Branch for 5 days. levoFLOXaci 2021-10- No [id number] 500mg Take 1 [facility] n 500 mg 1-21 -27 tablet by ity o f tablet 00:00: 05:59 mouth [place] 00 :00 every 24 Medical ([facility]) hours for 5 days. predniSONE 2021-10- No [id number] 40mg Take 2 [facility] 20 mg 1-21 11-27 tablets by ity of tablet 00:00: 05:59 mouth in [place] 00 :00 the [facility] Branch for 5 days. levoFLOXaci 2021-10- No [id number] 500mg Take 1 [facility] n 500 mg 1-21 11-27 tablet by ity o f tablet 00:00: 05:59 mouth [place] 00 :00 every 24 Medical ([facility]) hours for 5 days. predniSONE 2021-10- No [id number] 40mg Take 2 [facility] 20 mg 1-21 -27 tablets by ity of tablet 00:00: 05:59 mouth in [place] 00 :00 the [facility] for 5 days. levoFLOXaci 2021-10- No [id number] 500mg Take 1 [facility] n 500 mg -21 -27 tablet by ity o f tablet 00:00: 05:59 mouth [place] 00 :00 every 24 Medical ([facility]) hours for 5 days. benzonatate 2021-10 Yes [id number] 100mg Take 1 [facility] 100 mg 0-28 capsule by ity of capsule 00:00: mouth 3 [place] 00 (three) Medical times [place] daily as needed for Cough. azithromyci 2021-10 Yes [id number] 250mg Z-Jeffery = [facility] n 0-28 500 mg day ity of (ZITHROMAX 00:00: [place] Z-JEFFERY[place] 250 00 250 mg Medical mg tablet days 2 to Branc h 5. benzonatate 2021-10 Yes [id number] 100mg Take 1 [facility] 100 mg 0-28 capsule by ity of capsule 00:00: mouth 3 [place] 00 (three) Medical times Branch daily as needed for Cough. azithromyci 2021-10 Yes [id number] 250mg Z-[facility]ery = [facility] n 0-28 500 mg day ity of (ZITHROMAX 00:00: [place], [place] Z-JEFFERY[place] 250 00 250 mg Medical mg tablet days 2 to Branc h 5. benzonatate 2021-10 Yes [id number] 100mg Take 1 [facility] 100 mg 0-28 capsule by ity of capsule 00:00: mouth 3 [place] (three) Medical times Branch daily as needed for Cough. azithromyci 2021-10 Yes [id number] 250mg Z-Jeffery = [facility] n 0-28 500 mg day ity of (ZITHROMAX 00:00: [place], [place] Z-JEFFERY[place] 250 00 250 mg Medical mg tablet days 2 to Branc h 5. benzonatate 2021-10 Yes [id number] 100mg Take 1 [facility] 100 mg 0-28 capsule by ity of capsule 00:00: mouth 3 (three) Medical times Branch daily as needed for Cough. azithromyci 2021-10 Yes [id number] 250mg Z-Jeffery = [facility] n 0-28 500 mg day ity of (ZITHROMAX 00:00: 1, [place] Z-JEFFERY[place] 250 00 250 mg Medical mg tablet days 2 to Branc h 5. benzonatate 2021-10 Yes [id number] 100mg Take 1 [facility] 100 mg 0-28 capsule by ity of capsule 00:00: mouth 3 [place] (three) Medical times Branch daily as needed for Cough. azithromyci 2021-10 Yes [id number] 250mg Z-Jeffery = [facility] n 0-28 500 mg day ity of (ZITHROMAX 00:00: 1, [place] Z-JEFFERY[place] 250 00 250 mg Medical mg tablet days 2 to Branc h 5. benzonatate 2021-10 Yes [id number] 100mg Take 1 [facility] 100 mg 0-28 capsule by ity of capsule 00:00: mouth 3 [place] (three) Medical times Branch daily as needed for Cough. azithromyci 2021-10 Yes [id number] 250mg Z-Jeffery = [facility] n 0-28 500 mg day ity of (ZITHROMAX 00:00: 1, [place] Z-JEFFERY[place] 250 00 250 mg Medical mg tablet days 2 to Branc h 5. benzonatate 2021-10 Yes [id number] 100mg Take 1 [facility] 100 mg 0-28 capsule by ity of capsule 00:00: mouth 3 [place] 00 (three) Medical times Branch daily as needed for Cough. azithromyci 2021-10 Yes [id number] 250mg Z-Jeffery = [facility] n 0-28 500 mg day ity of (ZITHROMAX 00:00: 1, [place] Z-JEFFERY[place] 250 00 250 mg Medical mg tablet days 2 to Branc h 5. benzonatate 2021-10 Yes [id number] 100mg Take 1 [facility] 100 mg 0-28 capsule by ity of capsule 00:00: mouth 3 (three) Medical times Branch daily as needed for Cough. azithromyci 2021-10 Yes [id number] 250mg Z-Jeffery = [facility] n 0-28 500 mg day ity of (ZITHROMAX 00:00: 1, [place] Z-JEFFERY[place] 250 00 250 mg Medical mg tablet days 2 to Branc h 5. benzonatate 2021-10 Yes [id number] 100mg Take 1 [facility] 100 mg 0-28 capsule by ity of capsule 00:00: mouth 3 (three) Medical times Branch daily as needed for Cough. azithromyci 2021-10 Yes [id number] 250mg Z-Jeffery = [facility] n 0-28 500 mg day ity of (ZITHROMAX 00:00: 1, then [place] Z-JEFFERY[place] 250 00 250 mg Medical mg tablet days 2 to Branc h 5. benzonatate 2021-10 Yes [id number] 100mg Take 1 [facility] 100 mg 0-28 capsule by ity of capsule 00:00: mouth 3 (three) Medical times Branch daily as needed for Cough. azithromyci 2021-10 Yes [id number] 250mg Z-Jeffery = [facility] n 0-28 500 mg day ity of (ZITHROMAX 00:00: 1, [place] Z-JEFFERY[place] 250 00 250 mg Medical mg tablet days 2 to Branc h 5. benzonatate 2021-10 Yes [id number] 100mg Take 1 [facility] 100 mg 0-28 capsule by ity of capsule 00:00: mouth 3 (three) Medical times Branch daily as needed for Cough. azithromyci 2021-10 Yes [id number] 250mg Z-Jeffery = [facility] n 0-28 500 mg day ity of (ZITHROMAX 00:00: 1, [place] Z-JEFFERY[place] 250 00 250 mg Medical mg tablet days 2 to Branc h 5. benzonatate 2021-10 Yes [id number] 100mg Take 1 [facility] 100 mg 0-28 capsule by ity of capsule 00:00: mouth 3 [place] 00 (three) Medical times Branch daily as needed for Cough. benzonatate 2021-10 Yes [id number] 100mg Take 1 [facility] 100 mg 0-28 capsule by ity of capsule 00:00: mouth 3 [place] 00 (three) Medical times Branch daily as needed for Cough. benzonatate 2021-10 Yes [id number] 100mg Take 1 [facility] 100 mg 0-28 capsule by ity of capsule 00:00: mouth 3 (three) Medical times Branch daily as needed for Cough. dextrometho 2021-10 Yes 10mL Take 10 mL [facility] rphan-guaif 0-28 by mouth ity of enesin 00:00: every 6 [place] 10-100 mg/5 (six) Medical mL solution hours as Bran ch needed for Cough. azithromyci 2021-10 Yes 250mg Z-Jeffery = [facility] n 0-28 500 mg day ity of (ZITHROMAX 00:00: 1, [place] Z-JEFFERY[place] 250 00 250 mg Medical mg tablet days 2 to Branc h 5. albuterol 2021-10 Yes 2{puff} Inhale 2 Univers (VENTOLIN 0-28 Puffs ity of HFA) 90 00:00: every 4 [place] mcg/actuati 00 (four) Medica l on inhaler hours as Branc h needed for Wheezing or Shortness of Breath. benzonatate 2021-10 Yes [id number] 100mg Take 1 [facility] 100 mg 0-28 capsule by ity of capsule 00:00: mouth 3 [place] 00 (three) Medical times Branch daily as needed for Cough. dextrometho 2021-10 Yes 10mL Take 10 mL [facility] rphan-guaif 0-28 by mouth ity of enesin 00:00: every 6 [place] 10-100 mg/5 00 (six) Medical mL solution hours as Bran ch needed for Cough. azithromyci 2021-10 Yes 250mg Z-Jeffery = [facility] n 0-28 500 mg day ity of (ZITHROMAX 00:00: 1, [place] Z-JEFFERY[place] 250 00 250 mg Medical mg tablet days 2 to Branc h 5. albuterol 2021-10 Yes 2{puff} Inhale 2 Univers (VENTOLIN 0-28 Puffs ity of HFA) 90 00:00: every 4 [place] mcg/actuati 00 (four) Medica l on inhaler hours as Branc h needed for Wheezing or Shortness of Breath. benzonatate 2021-10 Yes 100mg Take 1 [facility] 100 mg 0-28 capsule by ity of capsule 00:00: mouth 3 [place] 00 (three) Medical times Branch daily as needed for Cough. dextrometho 2021-10 Yes 10mL Take 10 mL [facility] rphan-guaif 0-28 by mouth ity of enesin 00:00: every 6 [place] 10-100 mg/5 00 (six) Medical mL solution hours as Bran ch needed for Cough. azithromyci 2021-10 Yes 250mg Z-Jeffery = [facility] n 0-28 500 mg day ity of (ZITHROMAX 00:00: 1, [place] Z-JEFFERY[place] 250 00 250 mg Medical mg tablet days 2 to Branc h 5. albuterol 2021-10 Yes 2{puff} Inhale 2 Univers (VENTOLIN 0-28 Puffs ity of HFA) 90 00:00: every 4 [place] mcg/actuati 00 (four) Medica l on inhaler hours as Branc h needed for Wheezing or Shortness of Breath. benzonatate 2021-10 Yes 100mg Take 1 [facility] 100 mg 0-28 capsule by ity of capsule 00:00: mouth 3 [place] 00 (three) Medical times Branch daily as needed for Cough. dextrometho 2021-10 Yes 10mL Take 10 mL [facility] rphan-guaif 0-28 by mouth ity of enesin 00:00: every 6 [place] 10-100 mg/5 00 (six) Medical mL solution hours as Bran ch needed for Cough. azithromyci 2021-10 Yes [id number] 250mg Z-Jeffery = [facility] n 0-28 500 mg day ity of (ZITHROMAX 00:00: 1, [place] Z-JEFFERY[place] 250 00 250 mg Medical mg tablet days 2 to Branc h 5. albuterol 2021-10 Yes [id number] 2{puff} Inhale 2 Univers (VENTOLIN 0-28 Puffs ity of HFA) 90 00:00: every 4 [place] mcg/actuati 00 (four) Medica l on inhaler hours as Branc h needed for Wheezing or Shortness of Breath. benzonatate 2021-10 Yes 100mg Take 1 [facility] 100 mg 0-28 capsule by ity of capsule 00:00: mouth 3 [place] 00 (three) Medical times Branch daily as needed for Cough. azithromyci 2021-10 Yes 250mg Z-Jeffery = [facility] n 0-28 500 mg day ity of (ZITHROMAX 00:00: 1, [place] Z-JEFFERY) 250 00 250 mg Medical mg tablet days 2 to Branc h 5. benzonatate 2021-10 Yes [id number] 100mg Take 1 [facility] 100 mg 0-28 capsule by ity of capsule 00:00: mouth 3 [place] 00 (three) Medical times Branch daily as needed for Cough. azithromyci 2021-10 Yes 250mg Z-Jeffery = [facility] n 0-28 500 mg day ity of (ZITHROMAX 00:00: 1, [place] Z-JEFFERY[place] 250 00 250 mg Medical mg tablet days 2 to Branc h 5. azithromyci 2021-10 No [id number] 250mg Z-Jeffery = [facility] n 0-28 11-21 500 mg day ity of (ZITHROMAX 00:00: 00:00 1, then [place] Z-JEFFERY) 250 00 :00 250 mg Medical mg tablet days 2 to Branc h 5. azithromyci 2021-10 No [id number] 250mg Z-Jeffery = [facility] n 0-28 11-21 500 mg day ity of (ZITHROMAX 00:00: 00:00 1, then [place] Z-JEFFERY) 250 00 :00 250 mg Medical mg tablet days 2 to Branc h 5. benzonatate 2021-10 [id number] 100mg Take 1 [facility] 100 mg 0-28 -21 capsule by ity of capsule 00:00: 00:00 mouth 3 [place] 00 :00 (three) Medical times Branch daily as needed for Cough. azithromyci 2021-10 [id number] 250mg Z-Jeffery = [facility] n 0-28 11-21 500 mg day ity of (ZITHROMAX 00:00: 00:00 1, then [place] Z-JEFFERY) 250 00 :00 250 mg Medical mg tablet days 2 to Bran h 5. predniSONE 2021-10 [id number] 60mg Take 3 [facility] 20 mg 0-28 11-03 tablets by ity of tablet 00:00: 04:59 mouth in [place] 00 :00 the Medical morning Branch for 5 days. predniSONE 2021-10 [id number] 60mg Take 3 [facility] 20 mg 0-28 11-03 tablets by ity of tablet 00:00: 04:59 mouth in [place] 00 :00 the Medical morning Branch for 5 days. predniSONE 2021-10 [id number] 60mg Take 3 [facility] 20 mg 0-28 11-03 tablets by ity of tablet 00:00: 04:59 mouth in [place] 00 :00 the Medical morning Branch for 5 days. predniSONE 2021-10 [id number] 60mg Take 3 [facility] 20 mg 0-28 11-03 tablets by ity of tablet 00:00: 04:59 mouth in [place] 00 :00 the Medical morning Branch for 5 days. predniSONE 2021-10 [id number] 60mg Take 3 [facility] 20 mg 0-28 11-03 tablets by ity of tablet 00:00: 04:59 mouth in [place] 00 :00 the Medical morning Branch for 5 days. predniSONE 2021-10 [id number] 60mg Take 3 [facility] 20 mg 0-28 11-03 tablets by ity of tablet 00:00: 04:59 mouth in [place] 00 :00 the Medical morning Branch for 5 days. predniSONE 2021-10 [id number] 60mg Take 3 [facility] 20 mg 0-28 11-03 tablets by ity of tablet 00:00: 04:59 mouth in [place] 00 :00 the Medical morning Branch for 5 days. predniSONE [id number] 60mg Take 3 [facility] 20 mg 0-28 11-03 tablets by ity of tablet 00:00: 04:59 mouth in [place] 00 :00 the [facility] for 5 days. predniSONE [id number] 60mg Take 3 [facility] 20 mg 0-28 11-03 tablets by ity of tablet 00:00: 04:59 mouth in [place] 00 :00 [facility] for 5 days. dextrometho [id number] 10mL Take 10 mL Univers rphan-guaif 0-28 11-01 by mouth ity of enesin 00:00: 00:00 every 6 [place] 10-100 mg/5 00 :00 (six) Medical mL solution hours as Bran ch needed for Cough. albuterol [id number] 2{puff} Inhale 2 Univers (VENTOLIN 0-28 11-01 Puffs ity of HFA) 90 00:00: 00:00 every 4 [place] mcg/actuati 00 :00 (four) Medica l on inhaler hours as Branc h needed for Wheezing or Shortness of Breath. dextrometho 2021-10 No [id number] 10mL Take 10 mL [facility] rphan-guaif 0-28 11- by mouth ity of enesin 00:00: 00:00 every 6 [place] 10-100 mg/5 00 :00 (six) Medical mL solution hours as Bran ch needed for Cough. albuterol 2021-10 No [id number] 2{puff} Inhale 2 Univers (VENTOLIN 0-28 11-01 Puffs ity of HFA) 90 00:00: 00:00 every 4 [place] mcg/actuati 00 :00 (four) Medica l on inhaler hours as Branc h needed for Wheezing or Shortness of Breath. budesonide- 2021-10 Yes [id number] 1{puff} Inhale 1 Univers formoteroL 0-10 Puff in ity of (SYMBICORT) 00:00: the [place] 160-4.5 00 morning Medical mcg/actuati and 1 Puff Br anch on inhaler in the evening. budesonide- 2021-10 Yes [id number] 1{puff} Inhale 1 [facility] formoteroL 0-10 Puff in ity of (SYMBICORT) 00:00: the [place] 160-4.5 00 morning Medical mcg/actuati and 1 Puff Br anch on inhaler in the evening. budesonide- 2021-10 Yes [id number] 1{puff} Inhale 1 [facility] formoteroL 0-10 Puff in ity of (SYMBICORT) 00:00: the [place] 160-4.5 00 morning Medical mcg/actuati and 1 Puff Br anch on inhaler in the evening. budesonide- 2021-10 Yes [id number] 1{puff} Inhale 1 [facility] formoteroL 0-10 Puff in ity of (SYMBICORT) 00:00: the [place] 160-4.5 00 morning Medical mcg/actuati and 1 Puff Br anch on inhaler in the evening. budesonide- 2021-10 Yes [id number] 1{puff} Inhale 1 [facility] formoteroL 0-10 Puff in ity of (SYMBICORT) 00:00: the [place] 160-4.5 00 morning Medical mcg/actuati and 1 Puff Br anch on inhaler in the evening. budesonide- 2021-10 Yes [id number] 1{puff} Inhale 1 [facility] formoteroL 0-10 Puff in ity of (SYMBICORT) 00:00: the [place] 160-4.5 00 morning Medical mcg/actuati and 1 Puff Br anch on inhaler in the evening. budesonide- 2021-10 Yes [id number] 1{puff} Inhale 1 [facility] formoteroL 0-10 Puff in ity of (SYMBICORT) 00:00: the [place] 160-4.5 00 morning Medical mcg/actuati and 1 Puff Br anch on inhaler in the evening. budesonide- 2021-10 Yes [id number] 1{puff} Inhale 1 [facility] formoteroL 0-10 Puff in ity of (SYMBICORT) 00:00: the [place] 160-4.5 00 morning Medical mcg/actuati and 1 Puff Br anch on inhaler in the evening. budesonide- 2021-10 Yes [id number] 1{puff} Inhale 1 [facility] formoteroL 0-10 Puff in ity of (SYMBICORT) 00:00: the [place] 160-4.5 00 morning Medical mcg/actuati and 1 Puff Br anch on inhaler in the evening. budesonide- 2021-10 Yes [id number] 1{puff} Inhale 1 [facility] formoteroL 0-10 Puff in ity of (SYMBICORT) 00:00: the [place] 160-4.5 00 morning Medical mcg/actuati and 1 Puff Br anch on inhaler in the evening. budesonide- 2021-10 Yes [id number] 1{puff} Inhale 1 [facility] formoteroL 0-10 Puff in ity of (SYMBICORT) 00:00: the [place] 160-4.5 00 morning Medical mcg/actuati and 1 Puff Br anch on inhaler in the evening. budesonide- 2021-10 Yes [id number] 1{puff} Inhale 1 [facility] formoteroL 0-10 Puff in ity of (SYMBICORT) 00:00: the [place] 160-4.5 00 morning Medical mcg/actuati and 1 Puff Br anch on inhaler in the evening. budesonide- 2021-10 Yes [id number] 1{puff} Inhale 1 [facility] formoteroL 0-10 Puff in ity of (SYMBICORT) 00:00: the [place] 160-4.5 00 morning Medical mcg/actuati and 1 Puff Br anch on inhaler in the evening. budesonide- 2021-10 Yes [id number] 1{puff} Inhale 1 [facility] formoteroL 0-10 Puff in ity of (SYMBICORT) 00:00: the [place] 160-4.5 00 morning Medical mcg/actuati and 1 Puff Br anch on inhaler in the evening. budesonide- 2021-10 Yes [id number] 1{puff} Inhale 1 [facility] formoteroL 0-10 Puff in ity of (SYMBICORT) 00:00: the [place] 160-4.5 00 morning Medical mcg/actuati and 1 Puff Br anch on inhaler in the evening. budesonide- 2021-10 Yes [id number] 1{puff} Inhale 1 [facility] formoteroL 0-10 Puff in ity of (SYMBICORT) 00:00: the [place] 160-4.5 00 morning Medical mcg/actuati and 1 Puff Br anch on inhaler in the evening. budesonide- 2021-10 Yes [id number] 1{puff} Inhale 1 [facility] formoteroL 0-10 Puff in ity o f (SYMBICORT) 00:00: the [place] 160-4.5 00 morning Medical mcg/actuati and 1 Puff Br anch on inhaler in the evening. budesonide- 2021-10 Yes [id number] 1{puff} Inhale 1 [facility] formoteroL 0-10 Puff in ity of (SYMBICORT) 00:00: the [place] 160-4.5 00 morning Medical mcg/actuati and 1 Puff Br anch on inhaler in the evening. budesonide2021-10 Yes [id number] 1{puff} Inhale 1 [facility] formoteroL 0-10 Puff in ity of (SYMBICORT) 00:00: the [place] 160-4.5 00 morning Medical mcg/actuati and 1 Puff Br anch on inhaler in the evening. budesonide- 2021-10 Yes [id number] 1{puff} Inhale 1 [facility] formoteroL 0-10 Puff in ity of (SYMBICORT) 00:00: the [place] 160-4.5 00 morning Medical mcg/actuati and 1 Puff Br anch on inhaler in the evening. budesonide- 2021-10 Yes [id number] 1{puff} Inhale 1 [facility] formoteroL 0-10 Puff in ity of (SYMBICORT) 00:00: the [place] 160-4.5 00 morning Medical mcg/actuati and 1 Puff Br anch on inhaler in the evening. budesonide- 2021-10 Yes [id number] 1{puff} Inhale 1 [facility] formoteroL 0-10 Puff in ity of (SYMBICORT) 00:00: the [place] 160-4.5 00 morning Medical mcg/actuati and 1 Puff Br anch on inhaler in the evening. budesonide- 2021-10 Yes [id number] 1{puff} Inhale 1 [facility] formoteroL 0-10 Puff in ity of (SYMBICORT) 00:00: the [place] 160-4.5 00 morning Medical mcg/actuati and 1 Puff Br anch on inhaler in the evening. budesonide- 2021-10 Yes [id number] 1{puff} Inhale 1 [facility] formoteroL 0-10 Puff in ity of (SYMBICORT) 00:00: the [place] 160-4.5 00 morning Medical mcg/actuati and 1 Puff Br anch on inhaler in the evening. budesonide- 2021-10 Yes [id number] 1{puff} Inhale 1 [facility] formoteroL 0-10 Puff in ity of (SYMBICORT) 00:00: the [place] 160-4.5 00 morning Medical mcg/actuati and 1 Puff Br anch on inhaler in the evening. budesonide- 2021-10 Yes [id number] 1{puff} Inhale 1 [facility] formoteroL 0-10 Puff in ity of (SYMBICORT) 00:00: the [place] 160-4.5 00 morning Medical mcg/actuati and 1 Puff Br anch on inhaler in the evening. budesonide- 2021-10 Yes [id number] 1{puff} Inhale 1 [facility] formoteroL 0-10 Puff in ity of (SYMBICORT) 00:00: the [place] 160-4.5 00 morning Medical mcg/actuati and 1 Puff Br anch on inhaler in the evening. budesonide- 2021-10 Yes [id number] 1{puff} Inhale 1 [facility] formoteroL 0-10 Puff in ity of (SYMBICORT) 00:00: the [place] 160-4.5 00 morning Medical mcg/actuati and 1 Puff Br anch on inhaler in the evening. budesonide- 2021-10 Yes [id number] 1{puff} Inhale 1 [facility] formoteroL 0-10 Puff in ity of (SYMBICORT) 00:00: the [place] 160-4.5 00 morning Medical mcg/actuati and 1 Puff Br anch on inhaler in the evening. budesonide- 2021-10 Yes [id number] 1{puff} Inhale 1 [facility] formoteroL 0-10 Puff in ity of (SYMBICORT) 00:00: the [place] 160-4.5 00 morning Medical mcg/actuati and 1 Puff Br anch on inhaler in the evening. budesonide- 2021-10 Yes [id number] 1{puff} Inhale 1 [facility] formoteroL 0-10 Puff in ity of (SYMBICORT) 00:00: the [place] 160-4.5 00 morning Medical mcg/actuati and 1 Puff Br anch on inhaler in the evening. budesonide- 2021-10 Yes [id number] 1{puff} Inhale 1 [facility] formoteroL 0-10 Puff in ity of (SYMBICORT) 00:00: the [place] 160-4.5 00 morning Medical mcg/actuati and 1 Puff Br anch on inhaler in the evening. budesonide- 2021-10 Yes [id number] 1{puff} Inhale 1 [facility] formoteroL 0-10 Puff in ity of (SYMBICORT) 00:00: the [place] 160-4.5 00 morning Medical mcg/actuati and 1 Puff Br anch on inhaler in the evening. budesonide- 2021-10 Yes [id number] 1{puff} Inhale 1 [facility] formoteroL 0-10 Puff in ity of (SYMBICORT) 00:00: the [place] 160-4.5 00 morning Medical mcg/actuati and 1 Puff Br anch on inhaler in the evening. budesonide- 2021-10 Yes [id number] 1{puff} Inhale 1 [facility] formoteroL 0-10 Puff in ity of (SYMBICORT) 00:00: the [place] 160-4.5 00 morning Medical mcg/actuati and 1 Puff Br anch on inhaler in the evening. budesonide- 2021-10 Yes [id number] 1{puff} Inhale 1 [facility] formoteroL 0-10 Puff in ity of (SYMBICORT) 00:00: the [place] 160-4.5 00 morning Medical mcg/actuati and 1 Puff Br anch on inhaler in the evening. budesonide- 2021-10 Yes [id number] 1{puff} Inhale 1 [facility] formoteroL 0-10 Puff in ity of (SYMBICORT) 00:00: the [place] 160-4.5 00 morning Medical mcg/actuati and 1 Puff Br anch on inhaler in the evening. budesonide- 2021-10 Yes [id number] 1{puff} Inhale 1 [facility] formoteroL 0-10 Puff in ity of (SYMBICORT) 00:00: the [place] 160-4.5 00 morning Medical mcg/actuati and 1 Puff Br anch on inhaler in the evening. budesonide- 2021-10 Yes [id number] 1{puff} Inhale 1 [facility] formoteroL 0-10 Puff in ity of (SYMBICORT) 00:00: the [place] 160-4.5 00 morning Medical mcg/actuati and 1 Puff Br anch on inhaler in the evening. budesonide- 2021-10 Yes [id number] 1{puff} Inhale 1 [facility] formoteroL 0-10 Puff in ity of (SYMBICORT) 00:00: the [place] 160-4.5 00 morning Medical mcg/actuati and 1 Puff Br anch on inhaler in the evening. budesonide- 2021-10 Yes [id number] 1{puff} Inhale 1 [facility] formoteroL 0-10 Puff in ity of (SYMBICORT) 00:00: the [place] 160-4.5 00 morning Medical mcg/actuati and 1 Puff [facility] anch on inhaler in the evening. budesonide- 2021-10 Yes [id number] 1{puff} Inhale 1 [facility] formoteroL 0-10 Puff in ity of (SYMBICORT) 00:00: the [place] 160-4.5 00 morning Medical mcg/actuati and 1 Puff Br anch on inhaler in the evening. budesonide- 2021-10 Yes [id number] 1{puff} Inhale 1 [facility] formoteroL 0-10 Puff in ity of (SYMBICORT) 00:00: the [place] 160-4.5 00 morning Medical mcg/actuati and 1 Puff [facility] anch on inhaler in the evening. budesonide- 2021-10 Yes [id number] 1{puff} Inhale 1 [facility] formoteroL 0-10 Puff in ity of (SYMBICORT) 00:00: the [place] 160-4.5 00 morning Medical mcg/actuati and 1 Puff Br anch on inhaler in the evening. budesonide- 2021-10 Yes [id number] 1{puff} Inhale 1 [facility] formoteroL 0-10 Puff in ity of (SYMBICORT) 00:00: the [place] 160-4.5 00 morning Medical mcg/actuati and 1 Puff [facility] anch on inhaler in the evening. budesonide- 2021-10 Yes [id number] 1{puff} Inhale 1 [facility] formoteroL 0-10 Puff in ity of (SYMBICORT) 00:00: the [place] 160-4.5 00 morning Medical mcg/actuati and 1 Puff [facility] anch on inhaler in the evening. budesonide2021-10 Yes [id number] 1{puff} Inhale 1 [facility] formoteroL 0-10 Puff in ity of (SYMBICORT) 00:00: the [place] 160-4.5 00 morning Medical mcg/actuati and 1 Puff [facility] anch on inhaler in the evening. budesonide2021-10 Yes [id number] 1{puff} Inhale 1 [facility] formoteroL 0-10 Puff in ity of (SYMBICORT) 00:00: the [place] 160-4.5 00 morning Medical mcg/actuati and 1 Puff Br anch on inhaler in the evening. budesonide2021-10 Yes [id number] 1{puff} Inhale 1 [facility] formoteroL 0-10 Puff in ity of (SYMBICORT) 00:00: the [place] 160-4.5 00 morning Medical mcg/actuati and 1 Puff [facility] anch on inhaler in the evening. budesonide2021-10 Yes [id number] 1{puff} Inhale 1 [facility] formoteroL 0-10 Puff in ity of (SYMBICORT) 00:00: the [place] 160-4.5 00 morning Medical mcg/actuati and 1 Puff [facility] anch on inhaler in the evening. budesonide2021-10 Yes [id number] 1{puff} Inhale 1 [facility] formoteroL 0-10 Puff in ity of (SYMBICORT) 00:00: the [place] 160-4.5 00 morning Medical mcg/actuati and 1 Puff [facility] anch on inhaler in the evening. budesonide- 2021-10 Yes [id number] 1{puff} Inhale 1 [facility] formoteroL 0-10 Puff in ity of (SYMBICORT) 00:00: the [place] 160-4.5 00 morning Medical mcg/actuati and 1 Puff [facility] anch on inhaler in the evening. budesonide- 2021-10 Yes [id number] 1{puff} Inhale 1 [facility] formoteroL 0-10 Puff in ity of (SYMBICORT) 00:00: the [place] 160-4.5 00 morning Medical mcg/actuati and 1 Puff Br anch on inhaler in the evening. budesonide- 2021-10 Yes [id number] 1{puff} Inhale 1 [facility] formoteroL 0-10 Puff in ity of (SYMBICORT) 00:00: the [place] 160-4.5 00 morning Medical mcg/actuati and 1 Puff Br anch on inhaler in the evening. budesonide- 2021-10 Yes [id number] 1{puff} Inhale 1 [facility] formoteroL 0-10 Puff in ity of (SYMBICORT) 00:00: the [place] 160-4.5 00 morning Medical mcg/actuati and 1 Puff Br anch on inhaler in the evening. budesonide- 2021-10 Yes [id number] 1{puff} Inhale 1 [facility] formoteroL 0-10 Puff in ity of (SYMBICORT) 00:00: the [place] 160-4.5 00 morning Medical mcg/actuati and 1 Puff Br anch on inhaler in the evening. budesonide- 2021-10 Yes [id number] 1{puff} Inhale 1 [facility] formoteroL 0-10 Puff in ity of (SYMBICORT) 00:00: the [place] 160-4.5 00 morning Medical mcg/actuati and 1 Puff Br anch on inhaler in the evening. budesonide- 2021-10 Yes [id number] 1{puff} Inhale 1 [facility] formoteroL 0-10 Puff in ity of (SYMBICORT) 00:00: the [place] 160-4.5 00 morning Medical mcg/actuati and 1 Puff Br anch on inhaler in the evening. budesonide- 2021-10 Yes [id number] 1{puff} Inhale 1 [facility] formoteroL 0-10 Puff in ity of (SYMBICORT) 00:00: the [place] 160-4.5 00 morning Medical mcg/actuati and 1 Puff Br anch on inhaler in the evening. budesonide- 2021-10 Yes [id number] 1{puff} Inhale 1 [facility] formoteroL 0-10 Puff in ity of (SYMBICORT) 00:00: the [place] 160-4.5 00 morning Medical mcg/actuati and 1 Puff Br anch on inhaler in the evening. budesonide- 2021-10 Yes [id number] 1{puff} Inhale 1 [facility] formoteroL 0-10 Puff in ity of (SYMBICORT) 00:00: the [place] 160-4.5 00 morning Medical mcg/actuati and 1 Puff Br anch on inhaler in the evening. budesonide- 2021-10 Yes [id number] 1{puff} Inhale 1 [facility] formoteroL 0-10 Puff in ity of (SYMBICORT) 00:00: the [place] 160-4.5 00 morning Medical mcg/actuati and 1 Puff Br anch on inhaler in the evening. budesonide- 2021-10 Yes [id number] 1{puff} Inhale 1 [facility] formoteroL 0-10 Puff in ity of (SYMBICORT) 00:00: the [place] 160-4.5 00 morning Medical mcg/actuati and 1 Puff Br anch on inhaler in the evening. budesonide- 2021-10 Yes [id number] 1{puff} Inhale 1 [facility] formoteroL 0-10 Puff in ity of (SYMBICORT) 00:00: the [place] 160-4.5 00 morning Medical mcg/actuati and 1 Puff Br anch on inhaler in the evening. budesonide- 2021-10 Yes [id number] 1{puff} Inhale 1 [facility] formoteroL 0-10 Puff in ity of (SYMBICORT) 00:00: the [place] 160-4.5 00 morning Medical mcg/actuati and 1 Puff Br anch on inhaler in the evening. budesonide- 2021-10 Yes [id number] 1{puff} Inhale 1 [facility] formoteroL 0-10 Puff in ity of (SYMBICORT) 00:00: the [place] 160-4.5 00 morning Medical mcg/actuati and 1 Puff Br anch on inhaler in the evening. budesonide- 2021-10 Yes [id number] 1{puff} Inhale 1 [facility] formoteroL 0-10 Puff in ity of (SYMBICORT) 00:00: the [place] 160-4.5 00 morning Medical mcg/actuati and 1 Puff Br anch on inhaler in the evening. budesonide- 2021-10 Yes [id number] 1{puff} Inhale 1 [facility] formoteroL 0-10 Puff in ity of (SYMBICORT) 00:00: the [place] 160-4.5 00 morning Medical mcg/actuati and 1 Puff Br anch on inhaler in the evening. budesonide- 2021-10 Yes [id number] 1{puff} Inhale 1 [facility] formoteroL 0-10 Puff in ity of (SYMBICORT) 00:00: the [place] 160-4.5 00 morning Medical mcg/actuati and 1 Puff Br anch on inhaler in the evening. budesonide- 2021-10 Yes [id number] 1{puff} Inhale 1 [facility] formoteroL 0-10 Puff in ity of (SYMBICORT) 00:00: the [place] 160-4.5 00 morning Medical mcg/actuati and 1 Puff Br anch on inhaler in the evening. budesonide- 2021-10 Yes [id number] 1{puff} Inhale 1 [facility] formoteroL 0-10 Puff in ity of (SYMBICORT) 00:00: the [place] 160-4.5 00 morning Medical mcg/actuati and 1 Puff Br anch on inhaler in the evening. budesonide- 2021-10 Yes [id number] 1{puff} Inhale 1 [facility] formoteroL 0-10 Puff in ity of (SYMBICORT) 00:00: the [place] 160-4.5 00 morning Medical mcg/actuati and 1 Puff Br anch on inhaler in the evening. budesonide- 2021-10 Yes [id number] 1{puff} Inhale 1 [facility] formoteroL 0-10 Puff in ity of (SYMBICORT) 00:00: the [place] 160-4.5 00 morning Medical mcg/actuati and 1 Puff Br anch on inhaler in the evening. budesonide- 2021-10 Yes [id number] 1{puff} Inhale 1 [facility] formoteroL 0-10 Puff in ity of (SYMBICORT) 00:00: the [place] 160-4.5 00 morning Medical mcg/actuati and 1 Puff Br anch on inhaler in the evening. budesonide- 2021-10 Yes [id number] 1{puff} Inhale 1 [facility] formoteroL 0-10 Puff in ity of (SYMBICORT) 00:00: the [place] 160-4.5 00 morning Medical mcg/actuati and 1 Puff Br anch on inhaler in the evening. budesonide- 2021-10 Yes [id number] 1{puff} Inhale 1 [facility] formoteroL 0-10 Puff in ity of (SYMBICORT) 00:00: the [place] 160-4.5 00 morning Medical mcg/actuati and 1 Puff Br anch on inhaler in the evening. budesonide2021-10 Yes [id number] 1{puff} Inhale 1 [facility] formoteroL 0-10 Puff in ity of (SYMBICORT) 00:00: the [place] 160-4.5 00 morning Medical mcg/actuati and 1 Puff Br anch on inhaler in the evening. budesonide2021-10 Yes [id number] 1{puff} Inhale 1 [facility] formoteroL 0-10 Puff in ity of (SYMBICORT) 00:00: the [place] 160-4.5 00 morning Medical mcg/actuati and 1 Puff Br anch on inhaler in the evening. budesonide2021-10 Yes [id number] 1{puff} Inhale 1 [facility] formoteroL 0-10 Puff in ity of (SYMBICORT) 00:00: the [place] 160-4.5 00 morning Medical mcg/actuati and 1 Puff Br anch on inhaler in the evening. budesonide2021-10 Yes [id number] 1{puff} Inhale 1 [facility] formoteroL 0-10 Puff in ity of (SYMBICORT) 00:00: the [place] 160-4.5 00 morning Medical mcg/actuati and 1 Puff Br anch on inhaler in the evening. budesonide- 2021-10 Yes [id number] 1{puff} Inhale 1 [facility] formoteroL 0-10 Puff in ity of (SYMBICORT) 00:00: the [place] 160-4.5 00 morning Medical mcg/actuati and 1 Puff Br anch on inhaler in the evening. budesonide- 2021-10 Yes [id number] 1{puff} Inhale 1 [facility] formoteroL 0-10 Puff in ity of (SYMBICORT) 00:00: the [place] 160-4.5 00 morning Medical mcg/actuati and 1 Puff Br anch on inhaler in the evening. budesonide- 2021-10- No [id number] 1{puff} Inhale 1 [facility] formoteroL 0-10 05-08 Puff in ity o f (SYMBICORT) 00:00: 00:00 the [place] 160-4.5 00 :00 morning Medical mcg/actuati and 1 Puff Br anch on inhaler in the evening. budesonide- 2021-10- No [id number] 1{puff} Inhale 1 [facility] formoteroL 0-10 05-08 Puff in ity o f (SYMBICORT) 00:00: 00:00 the [place] 160-4.5 00 :00 morning Medical mcg/actuati and 1 Puff Br anch on inhaler in the evening. buPROPion 2021- No [id number] Take 150 Univers HCL, 6-24 07-25 mg by ity of smoking 00:00: 04:59 mouth [place] deter, 150 00 :00 daily for Medi elmer mg Tb12 3 days, Branch THEN 150 mg 2 (two) times daily for 27 days. PROPRANOLOL Yes [id number] TAKE 1 [facility] 60 mg 24 hr 1-10 CAPSULE BY it y of capsule 00:00: MOUTH [place] 00 EVERY DAY Medical Branch PROPRANOLOL 2021-0 Yes [id number] TAKE 1 [facility] 60 mg 24 hr 1-10 CAPSULE BY it y of capsule 00:00: MOUTH [place] 00 EVERY DAY Medical Branch PROPRANOLOL 2021-0 Yes [id number] TAKE 1 [facility] 60 mg 24 hr 1-10 CAPSULE BY it y of capsule 00:00: [facility] 00 EVERY DAY Medical Branch PROPRANOLOL 2021-0 Yes [id number] TAKE 1 Univers 60 mg 24 hr 1-10 CAPSULE BY it y of capsule 00:00: MOUTH [place] 00 EVERY DAY Medical Branch PROPRANOLOL 2021-0 Yes [id number] TAKE 1 Univers 60 mg 24 hr 1-10 CAPSULE BY it y of capsule 00:00: MOUTH [place] EVERY DAY Medical Branch PROPRANOLOL 2021-0 Yes [id number] TAKE 1 [facility] 60 mg 24 hr 1-10 CAPSULE BY it y of capsule 00:00: MOUTH [place] EVERY DAY Medical Branch PROPRANOLOL 2022-0 Yes [id number] TAKE 1 [facility] 60 mg 24 hr 1-10 CAPSULE BY it y of capsule 00:00: [facility] EVERY DAY Medical Branch PROPRANOLOL 2022-0 Yes [id number] TAKE 1 Univers 60 mg 24 hr 1-10 CAPSULE BY it y of capsule 00:00: [facility] EVERY DAY Medical Branch PROPRANOLOL 2022-0 Yes [id number] TAKE 1 Univers 60 mg 24 hr 1-10 CAPSULE BY it y of capsule 00:00: MOUTH [place] EVERY DAY Medical Branch PROPRANOLOL 2022-0 Yes [id number] TAKE 1 Univers 60 mg 24 hr 1-10 CAPSULE BY it y of capsule 00:00: [facility] EVERY DAY Medical Branch PROPRANOLOL 2022-0 Yes [id number] TAKE 1 Univers 60 mg 24 hr 1-10 CAPSULE BY it y of capsule 00:00: [facility] EVERY DAY Medical Branch PROPRANOLOL 2022-0 Yes [id number] TAKE 1 Univers 60 mg 24 hr 1-10 CAPSULE BY it y of capsule 00:00: [facility] EVERY DAY Medical Branch PROPRANOLOL 2022-0 Yes [id number] TAKE 1 Univers 60 mg 24 hr 1-10 CAPSULE BY it y of capsule 00:00: [facility] EVERY DAY Medical Branch PROPRANOLOL 2022-0 Yes [id number] TAKE 1 [facility] 60 mg 24 hr 1-10 CAPSULE BY it y of capsule 00:00: [facility] EVERY DAY Medical Branch PROPRANOLOL 2022-0 Yes [id number] TAKE 1 Univers 60 mg 24 hr 1-10 CAPSULE BY it y of capsule 00:00: [facility] EVERY DAY Medical Branch PROPRANOLOL 2022-0 Yes [id number] TAKE 1 [facility] 60 mg 24 hr 1-10 CAPSULE BY it y of capsule 00:00: [facility] EVERY DAY Medical Branch PROPRANOLOL 2022-0 Yes [id number] TAKE 1 Univers 60 mg 24 hr 1-10 CAPSULE BY it y of capsule 00:00: [facility] EVERY DAY Medical Branch PROPRANOLOL 2022-0 2022- No [id number] TAKE 1 Univers 60 mg 24 hr 1-10 11- CAPSULE BY i ty of capsule 00:00: 00:00 [facility] 00 :00 EVERY DAY Medical Branch PROPRANOLOL 2022-0 2022- No [id number] TAKE 1 Univers 60 mg 24 hr 10-13 CAPSULE BY i ty of capsule 00:00: 00:00 MOUTH [place] 00 :00 EVERY DAY Medical Branch budesonide- Yes [id number] 1{puff} Inhale 1 [facility] formoteroL 8-11 Puff 2 ity of (SYMBICORT) 00:00: (two) [place] 160-4.5 00 times Medical mcg/actuati daily. Branch on inhaler budesonide- Yes [id number] 1{puff} Inhale 1 [facility] formoteroL 8-11 Puff 2 ity of (SYMBICORT) 00:00: (two) [place] 160-4.5 00 times Medical mcg/actuati daily. Branch on inhaler budesonide- Yes [id number] 1{puff} Inhale 1 [facility] formoteroL 8-11 Puff 2 ity of (SYMBICORT) 00:00: (two) [place] 160-4.5 00 times Medical mcg/actuati daily. Branch on inhaler budesonide- Yes [id number] 1{puff} Inhale 1 [facility] formoteroL 8-11 Puff 2 ity of (SYMBICORT) 00:00: (two) [place] 160-4.5 00 times Medical mcg/actuati daily. Branch on inhaler budesonide- 2021- No [id number] 1{puff} Inhale 1 [facility] formoteroL 8-11 10-10 Puff 2 ity of (SYMBICORT) 00:00: 00:00 (two) [place] 160-4.5 00 :00 times Medical mcg/actuati daily. Branch on inhaler budesonide- 2021- No [id number] 1{puff} Inhale 1 [facility] formoteroL 8-11 10-10 Puff 2 ity of (SYMBICORT) 00:00: 00:00 (two) [place] 160-4.5 00 :00 times Medical mcg/actuati daily. Branch on inhaler budesonide- 2021- No [id number] 1{puff} Inhale 1 [facility] formoteroL 8-11 10-10 Puff 2 ity of (SYMBICORT) 00:00: 00:00 (two) [place] 160-4.5 00 :00 times Medical mcg/actuati daily. Branch on inhaler budesonide- 2- No [id number] 1{puff} Inhale 1 [facility] formoteroL 8-11 10-10 Puff 2 ity of (SYMBICORT) 00:00: 00:00 (two) [place] 160-4.5 00 :00 times Medical mcg/actuati daily. Branch on inhaler budesonide- 0 2- No [id number] 1{puff} Inhale 1 [facility] formoteroL 8-11 10-10 Puff 2 ity of (SYMBICORT) 00:00: 00:00 (two) [place] 160-4.5 00 :00 times Medical mcg/actuati daily. Branch on inhaler citalopram Yes [id number] 20mg Take 1 U nivers 20 mg 5-12 tablet by ity of tablet 00:00: mouth [place] 00 daily. Medical Branch citalopram 0 Yes [id number] 20mg Take 1 U nivers 20 mg 5-12 tablet by ity of tablet 00:00: mouth [place] 00 daily. Medical Branch citalopram 0 Yes [id number] 20mg Take 1 U nivers 20 mg 5-12 tablet by ity of tablet 00:00: mouth [place] 00 daily. Medical Branch citalopram 0 Yes [id number] 20mg Take 1 U nivers 20 mg 5-12 tablet by ity of tablet 00:00: mouth [place] 00 daily. Medical Branch citalopram 0 Yes [id number] 20mg Take 1 U nivers 20 mg 5-12 tablet by ity of tablet 00:00: mouth [place] 00 daily. Medical Branch citalopram 0 Yes [id number] 20mg Take 1 U nivers 20 mg 5-12 tablet by ity of tablet 00:00: mouth [place] 00 daily. Medical Branch citalopram 0 Yes [id number] 20mg Take 1 U nivers 20 mg 5-12 tablet by ity of tablet 00:00: mouth [place] 00 daily. Medical Branch citalopram 0 Yes [id number] 20mg Take 1 U nivers 20 mg 5-12 tablet by ity of tablet 00:00: mouth [place] 00 daily. Medical Branch citalopram Yes [id number] 20mg Take 1 U nivers 20 mg 5-12 tablet by ity of tablet 00:00: mouth [place] 00 daily. Medical Branch citalopram Yes [id number] 20mg Take 1 U nivers 20 mg 5-12 tablet by ity of tablet 00:00: mouth [place] 00 daily. Medical Branch citalopram Yes [id number] 20mg Take 1 U nivers 20 mg 5-12 tablet by ity of tablet 00:00: mouth [place] 00 daily. Medical Branch citalopram Yes [id number] 20mg Take 1 U nivers 20 mg 5-12 tablet by ity of tablet 00:00: mouth [place] 00 daily. Medical Branch citalopram Yes [id number] 20mg Take 1 U nivers 20 mg 5-12 tablet by ity of tablet 00:00: mouth [place] 00 daily. Medical Branch citalopram Yes [id number] 20mg Take 1 U nivers 20 mg 5-12 tablet by ity of tablet 00:00: mouth [place] 00 daily. Medical Branch citalopram Yes [id number] 20mg Take 1 U nivers 20 mg 5-12 tablet by ity of tablet 00:00: mouth [place] 00 daily. Medical Branch citalopram Yes [id number] 20mg Take 1 U nivers 20 mg 5-12 tablet by ity of tablet 00:00: mouth [place] 00 daily. Medical Branch citalopram Yes [id number] 20mg Take 1 U nivers 20 mg 5-12 tablet by ity of tablet 00:00: mouth [place] 00 daily. Medical Branch citalopram 2021- No [id number] 20mg Take 1 Univers 20 mg 5-12 - tablet by ity of tablet 00:00: 00:00 mouth [place] 00 :00 daily. Medical Branch citalopram 2021- No [id number] 20mg Take 1 [facility] 20 mg 5-12 - tablet by ity of tablet 00:00: 00:00 mouth [place] 00 :00 daily. Medical Branch propranolol Yes TAKE 1 Meth [facility] [place] (INDERAL 6-[address] [place]) 60 MG 00:00: [facility] 24 [facility] 00 EVERY DAY l capsule venlafaxine 2022- No 1 pill [facility] XR (EFFEXOR 06-30 03- daily for st XR) 75 MG 00:00: 00:00 2 weeks, [facility] 24 hr 00 :00 then l capsule continue 2 pills daily LORAZepam 2022- No TAKE 1 Metho di (ATIVAN) 10-[address] 0.5 MG 00:00: 00:00 MOUTH PRN [facility] ta tablet 00 :00 l etodolac 2022- No 400mg Q.5D Take 400 [facility] (LODINE) 10-27- mg by st 400 MG 00:00: 00:00 mouth 2 [facility] tablet 00 :00 (two) l times a day. Immunizations Ordered Filled Immunization Date Status Comments Sour e Immunization Name Name Influenza High Dose 2021-07-20 Completed [facility] 00:00:00 [facility] Influenza High Dose 2021-07-20 Completed [facility] 00:00:00 [facility] Influenza High Dose 2021-07-20 Completed [facility] 00:00:00 [facility] Influenza High Dose 2021-07-20 Completed [facility] 00:00:00 [facility] Influenza High Dose 2021-07-20 Completed [facility] 00:00:00 [facility] Influenza High Dose 2021-07-20 Completed [facility] 00:00:00 [facility] Influenza High Dose 2021-07-20 Completed [facility] 00:00:00 [facility] Influenza High Dose 2021-07-20 Completed [facility] 00:00:00 [facility] Influenza High Dose 2021-07-20 Completed [facility] 00:00:00 [facility] Influenza High Dose 2021-07-20 Completed [facility] 00:00:00 [facility] Influenza High Dose 2021-07-20 Completed [facility] 00:00:00 [facility] Influenza High Dose 2021-07-20 Completed [facility] 00:00:00 [facility] Influenza High Dose 2021-07-20 Completed [facility] 00:00:00 [place] [facility] Influenza High Dose 2021-07-20 Completed [facility] 00:00:00 [place] [facility] Influenza High Dose 2021-07-20 Completed [facility] of [facility] 00:00:00 [place] [facility] Influenza High Dose 2021-07-20 Completed [facility] of [facility] 00:00:00 [place] [facility] Influenza High Dose 2021-07-20 Completed [facility] of [facility] 00:00:00 [place] [facility] Influenza High Dose 2021-07-20 Completed [facility] of [facility] 00:00:00 [place] [facility] Influenza High Dose 2021-07-20 Completed [facility] of [facility] 00:00:00 [place] [facility] Influenza High Dose 2021-07-20 Completed [facility] of [facility] 00:00:00 [place] [facility] Influenza High Dose 2021-07-20 Completed [facility] of [facility] 00:00:00 [place] [facility] Influenza High Dose 2021-07-20 Completed [facility] of [facility] 00:00:00 [place] [facility] Influenza High Dose 2021-07-20 Completed [facility]ive [facility] of [facility] 00:00:00 [place] [facility] Influenza High Dose 2021-07-20 Completed [facility]ive [facility] of [facility] 00:00:00 [facility] Branch Influenza High Dose 2021-07-20 Completed [facility]ive [facility] of [facility] 00:00:00 [facility] SARS-COV-2 COVID-19 2020-12-09 Completed Unive rsity of MODERNA 12+ YRS 00:00:00 [facility] ical VACCINE Branch SARS-COV-2 COVID-19 2020-12-09 Completed Unive rsity of MODERNA 12+ YRS 00:00:00 [place] [facility] ical VACCINE Branch SARS-COV-2 COVID-19 2020-12-09 Completed Unive rsity of MODERNA 12+ YRS 00:00:00 [facility] ical VACCINE Branch SARS-COV-2 COVID-19 2020-12-09 Completed Unive rsity of MODERNA 12+ YRS 00:00:00 [facility] ical VACCINE Branch SARS-COV-2 COVID-19 2020-12-09 Completed Unive rsity of MODERNA 12+ YRS 00:00:00 [facility] ical VACCINE Branch SARS-COV-2 COVID-19 2020-12-09 Completed Unive rsity of MODERNA 12+ YRS 00:00:00 [place] [facility] ical VACCINE Branch SARS-COV-2 COVID-19 2020-12-09 Completed Unive rsity of MODERNA 12+ YRS 00:00:00 [place] [facility] ical VACCINE Branch SARS-COV-2 COVID-19 2020-12-09 Completed Unive rsity of MODERNA 12+ YRS 00:00:00 [place] [facility] ical VACCINE Branch SARS-COV-2 COVID-19 2020-12-09 Completed Unive rsity of MODERNA 12+ YRS 00:00:00 [place] [facility] ical VACCINE Branch SARS-COV-2 COVID-19 2020-12-09 Completed Unive rsity of MODERNA 12+ YRS 00:00:00 [place] [facility] ical VACCINE Branch SARS-COV-2 COVID-19 2020-12-09 Completed Unive rsity of MODERNA 12+ YRS 00:00:00 [place] [facility] ical VACCINE Branch SARS-COV-2 COVID-19 2020-12-09 Completed Unive rsity of MODERNA 12+ YRS 00:00:00 [place] [facility] ical VACCINE Branch SARS-COV-2 COVID-19 2020-12-09 Completed Unive rsity of MODERNA 12+ YRS 00:00:00 [place] [facility] ical VACCINE Branch SARS-COV-2 COVID-19 2020-12-09 Completed Unive rsity of MODERNA 12+ YRS 00:00:00 [place] [facility] ical VACCINE Branch SARS-COV-2 COVID-19 2020-12-09 Completed Unive rsity of MODERNA 12+ YRS 00:00:00 [place] [facility] ical VACCINE Branch SARS-COV-2 COVID-19 2020-12-09 Completed Unive rsity of MODERNA 12+ YRS 00:00:00 [place] Med ical VACCINE Branch SARS-COV-2 COVID-19 2020-12-09 Completed Unive rsity of MODERNA 12+ YRS 00:00:00 [place] [facility] ical VACCINE Branch SARS-COV-2 COVID-19 2020-12-09 Completed Unive rsity of MODERNA 12+ YRS 00:00:00 [place] [facility] ical VACCINE Branch SARS-COV-2 COVID-19 2020-12-09 Completed Unive rsity of MODERNA 12+ YRS 00:00:00 [place] [facility] ical VACCINE Branch SARS-COV-2 COVID-19 2020-12-09 Completed Unive rsity of MODERNA 12+ YRS 00:00:00 [place] [facility] ical VACCINE Branch SARS-COV-2 COVID-19 2020-12-09 Completed Unive rsity of MODERNA 12+ YRS 00:00:00 [place] [facility] ical VACCINE Branch SARS-COV-2 COVID-19 2020-12-09 Completed Unive rsity of MODERNA 12+ YRS 00:00:00 [place] [facility] ical VACCINE Branch SARS-COV-2 COVID-19 2020-12-09 Completed Unive rsity of MODERNA 12+ YRS 00:00:00 [place] [facility] ical VACCINE Branch SARS-COV-2 COVID-19 2020-12-09 Completed Unive rsity of MODERNA 12+ YRS 00:00:00 [place] [facility] ical VACCINE Branch SARS-COV-2 COVID-19 2020-12-09 Completed Unive rsity of MODERNA 12+ YRS 00:00:00 [place] [facility] ical VACCINE Branch SARS-COV-2 COVID-19 2020-12-09 Completed Unive rsity of MODERNA 12+ YRS 00:00:00 [place] [facility] ical VACCINE Branch SARS-COV-2 COVID-19 2020-12-09 Completed Unive rsity of MODERNA 12+ YRS 00:00:00 [place] [facility] ical VACCINE Branch SARS-COV-2 COVID-19 2020-12-09 Completed Unive rsity of MODERNA 12+ YRS 00:00:00 [place] [facility] ical VACCINE Branch SARS-COV-2 COVID-19 2020-12-09 Completed Unive rsity of MODERNA 12+ YRS 00:00:00 [place] [facility] ical VACCINE Branch SARS-COV-2 COVID-19 2020-12-09 Completed Unive rsity of MODERNA 12+ YRS 00:00:00 [place] [facility] ical VACCINE Branch SARS-COV-2 COVID-19 2020-12-09 Completed Unive rsity of MODERNA 12+ YRS 00:00:00 [place] [facility] ical VACCINE Branch SARS-COV-2 COVID-19 2020-12-09 Completed Unive rsity of MODERNA 12+ YRS 00:00:00 [place] [facility] ical VACCINE Branch SARS-COV-2 COVID-19 2020-12-09 Completed Unive rsity of MODERNA 12+ YRS 00:00:00 [place] [facility] ical VACCINE Branch SARS-COV-2 COVID-19 2020-12-09 Completed Unive rsity of MODERNA 12+ YRS 00:00:00 [place] [facility] ical VACCINE Branch SARS-COV-2 COVID-19 2020-12-09 Completed Unive rsity of MODERNA 12+ YRS 00:00:00 [place] [facility] ical VACCINE Branch SARS-COV-2 COVID-19 2020-12-09 Completed Unive rsity of MODERNA 12+ YRS 00:00:00 [place] [facility] SARS-COV-2 COVID-19 2020-12-09 Completed [facility] 12+ YRS 00:00:00 [place] [facility] SARS-COV-2 COVID-19 2020-12-09 Completed [facility] 12+ YRS 00:00:00 [place] [facility] SARS-COV-2 COVID-19 2020-12-09 Completed [facility] 12+ YRS 00:00:00 [place] [facility] SARS-COV-2 COVID-19 2020-12-09 Completed [facility] 12+ YRS 00:00:00 [place] [facility] SARS-COV-2 COVID-19 2020-12-09 Completed [facility] 12+ YRS 00:00:00 [place] [facility] Branch SARS-COV-2 COVID-19 2020-12-09 Completed [facility] 12+ YRS 00:00:00 [place] [facility] SARS-COV-2 COVID-19 2020-12-09 Completed [facility] 12+ YRS 00:00:00 [place] [facility] SARS-COV-2 COVID-19 2020-12-09 Completed [facility] 12+ YRS 00:00:00 [place] [facility] SARS-COV-2 COVID-19 2020-12-09 Completed [facility] 12+ YRS 00:00:00 [place] [facility] SARS-COV-2 COVID-19 2020-12-09 Completed [facility] 12+ YRS 00:00:00 [place] [facility] SARS-COV-2 COVID-19 2020-12-09 Completed [facility] 12+ YRS 00:00:00 [place] [facility] SARS-COV-2 COVID-19 2020-12-09 Completed [facility] 12+ YRS 00:00:00 [place] [facility] SARS-COV-2 COVID-19 2020-12-09 Completed [facility] 12+ YRS 00:00:00 [place] [facility] SARS-COV-2 COVID-19 2020-12-09 Completed [facility] 12+ YRS 00:00:00 [place] [facility] SARS-COV-2 COVID-19 2020-12-09 Completed [facility] 12+ YRS 00:00:00 [place] [facility] SARS-COV-2 COVID-19 2020-12-09 Completed [facility] 12+ YRS 00:00:00 [place] [facility] SARS-COV-2 COVID-19 2020-12-09 Completed [facility] 12+ YRS 00:00:00 [place] [facility] SARS-COV-2 COVID-19 2020-12-09 Completed [facility] 12+ YRS 00:00:00 [place] [facility] SARS-COV-2 COVID-19 2020-12-09 Completed [facility] 12+ YRS 00:00:00 [place] [facility] SARS-COV-2 COVID-19 2020-12-09 Completed [facility] 12+ YRS 00:00:00 [place] [facility] SARS-COV-2 COVID-19 2020-12-09 Completed [facility] 12+ YRS 00:00:00 [place] [facility] SARS-COV-2 COVID-19 2020-12-09 Completed [facility] 12+ YRS 00:00:00 [place] [facility] SARS-COV-2 COVID-19 2020-12-09 Completed [facility] 12+ YRS 00:00:00 [place] [facility] SARS-COV-2 COVID-19 2020-12-09 Completed [facility] 12+ YRS 00:00:00 [place] [facility] SARS-COV-2 COVID-19 2020-12-09 Completed [facility] 12+ YRS 00:00:00 [place] [facility] SARS-COV-2 COVID-19 2020-12-09 Completed [facility] 12+ YRS 00:00:00 [place] [facility] SARS-COV-2 COVID-19 2020-12-09 Completed [facility] 12+ YRS 00:00:00 [place] [facility] SARS-COV-2 COVID-19 2020-12-09 Completed [facility] 12+ YRS 00:00:00 [place] [facility] SARS-COV-2 COVID-19 2020-12-09 Completed [facility] 12+ YRS 00:00:00 [place] [facility] SARS-COV-2 COVID-19 2020-12-09 Completed [facility] 12+ YRS 00:00:00 [place] [facility] SARS-COV-2 COVID-19 2020-12-09 Completed [facility] 12+ YRS 00:00:00 [place] [facility] SARS-COV-2 COVID-19 2020-12-09 Completed [facility] 12+ YRS 00:00:00 [place] [facility] SARS-COV-2 COVID-19 2020-12-09 Completed [facility] 12+ YRS 00:00:00 [place] [facility] SARS-COV-2 COVID-19 2020-12-09 Completed [facility] 12+ YRS 00:00:00 [place] [facility] SARS-COV-2 COVID-19 2020-12-09 Completed [facility] 12+ YRS 00:00:00 [place] [facility] SARS-COV-2 COVID-19 2020-12-09 Completed [facility] 12+ YRS 00:00:00 [place] [facility] SARS-COV-2 COVID-19 2020-12-09 Completed [facility] 12+ YRS 00:00:00 [place] [facility] SARS-COV-2 COVID-19 2020-12-09 Completed [facility] VACCINE 00:00:00 [place] [facility] SARS-COV-2 COVID-19 2020-12-09 Completed [facility] 12+ YRS 00:00:00 [place] [facility] SARS-COV-2 COVID-19 2020-12-09 Completed [facility] 12+ YRS 00:00:00 [place] [facility] SARS-COV-2 COVID-19 2020-12-09 Completed [facility] 12+ YRS 00:00:00 [place] [facility] SARS-COV-2 COVID-19 2020-12-09 Completed [facility] 12+ YRS 00:00:00 [place] [facility] SARS-COV-2 COVID-19 2020-12-09 Completed [facility] 12+ YRS 00:00:00 [place] [facility] SARS-COV-2 COVID-19 2020-12-09 Completed [facility] 12+ YRS 00:00:00 [place] [facility] SARS-COV-2 COVID-19 2020-12-09 Completed [facility] 12+ YRS 00:00:00 [place] [facility] SARS-COV-2 COVID-19 2020-12-09 Completed [facility] 12+ YRS 00:00:00 [place] [facility] SARS-COV-2 COVID-19 2020-12-09 Completed [facility] 12+ YRS 00:00:00 [place] [facility] SARS-COV-2 COVID-19 2020-12-09 Completed [facility] 12+ YRS 00:00:00 [place] [facility] SARS-COV-2 COVID-19 2020-12-09 Completed [facility] 12+ YRS 00:00:00 [place] [facility] SARS-COV-2 COVID-19 2020-12-09 Completed [facility] 12+ YRS 00:00:00 [place] [facility] SARS-COV-2 COVID-19 2020-12-09 Completed [facility] 12+ YRS 00:00:00 [place] [facility] SARS-COV-2 COVID-19 2020-12-09 Completed [facility] 12+ YRS 00:00:00 [place] [facility] SARS-COV-2 COVID-19 2020-12-09 Completed [facility] 12+ YRS 00:00:00 [place] [facility] SARS-COV-2 COVID-19 2020-12-09 Completed [facility] 12+ YRS 00:00:00 [place] [facility] SARS-COV-2 COVID-19 2020-12-09 Completed [facility] 12+ YRS 00:00:00 [place] [facility] SARS-COV-2 COVID-19 2020-12-09 Completed [facility] 12+ YRS 00:00:00 [place] [facility] SARS-COV-2 COVID-19 2020-11-11 Completed [facility] 12+ YRS 00:00:00 [place] [facility] SARS-COV-2 COVID-19 2020-11-11 Completed [facility] 12+ YRS 00:00:00 [place] [facility] SARS-COV-2 COVID-19 2020-11-11 Completed [facility] 12+ YRS 00:00:00 [place] [facility] SARS-COV-2 COVID-19 2020-11-11 Completed [facility] 12+ YRS 00:00:00 [place] [facility] SARS-COV-2 COVID-19 2020-11-11 Completed [facility] 12+ YRS 00:00:00 [place] [facility] SARS-COV-2 COVID-19 2020-11-11 Completed [facility] 12+ YRS 00:00:00 [place] [facility] SARS-COV-2 COVID-19 2020-11-11 Completed [facility] 12+ YRS 00:00:00 [place] [facility] SARS-COV-2 COVID-19 2020-11-11 Completed [facility] 12+ YRS 00:00:00 [place] [facility] SARS-COV-2 COVID-19 2020-11-11 Completed [facility] 12+ YRS 00:00:00 [place] [facility] SARS-COV-2 COVID-19 2020-11-11 Completed [facility] 12+ YRS 00:00:00 [place] [facility] SARS-COV-2 COVID-19 2020-11-11 Completed [facility] 12+ YRS 00:00:00 [place] [facility] SARS-COV-2 COVID-19 2020-11-11 Completed [facility] 12+ YRS 00:00:00 [place] [facility] SARS-COV-2 COVID-19 2020-11-11 Completed [facility] 12+ YRS 00:00:00 [place] [facility] SARS-COV-2 COVID-19 2020-11-11 Completed [facility] 12+ YRS 00:00:00 [place] [facility] SARS-COV-2 COVID-19 2020-11-11 Completed [facility] 12+ YRS 00:00:00 [place] [facility] SARS-COV-2 COVID-19 2020-11-11 Completed [facility] 12+ YRS 00:00:00 [place] [facility] SARS-COV-2 COVID-19 2020-11-11 Completed [facility] 12+ YRS 00:00:00 [place] [facility] SARS-COV-2 COVID-19 2020-11-11 Completed [facility] 12+ YRS 00:00:00 [place] [facility] SARS-COV-2 COVID-19 2020-11-11 Completed [facility] 12+ YRS 00:00:00 [place] [facility] SARS-COV-2 COVID-19 2020-11-11 Completed [facility] 12+ YRS 00:00:00 [place] [facility] SARS-COV-2 COVID-19 2020-11-11 Completed [facility] 12+ YRS 00:00:00 [place] [facility] SARS-COV-2 COVID-19 2020-11-11 Completed [facility] 12+ YRS 00:00:00 [place] [facility] SARS-COV-2 COVID-19 2020-11-11 Completed [facility] 12+ YRS 00:00:00 [place] [facility] SARS-COV-2 COVID-19 2020-11-11 Completed [facility] 12+ YRS 00:00:00 [place] [facility] SARS-COV-2 COVID-19 2020-11-11 Completed [facility] 12+ YRS 00:00:00 [place] [facility] SARS-COV-2 COVID-19 2020-11-11 Completed [facility] 12+ YRS 00:00:00 [place] [facility] SARS-COV-2 COVID-19 2020-11-11 Completed [facility] 12+ YRS 00:00:00 [place] [facility] SARS-COV-2 COVID-19 2020-11-11 Completed [facility] 12+ YRS 00:00:00 [place] [facility] SARS-COV-2 COVID-19 2020-11-11 Completed [facility] 12+ YRS 00:00:00 [place] [facility] SARS-COV-2 COVID-19 2020-11-11 Completed [facility] 12+ YRS 00:00:00 [place] [facility] SARS-COV-2 COVID-19 2020-11-11 Completed [facility] 12+ YRS 00:00:00 [place] [facility] SARS-COV-2 COVID-19 2020-11-11 Completed [facility] 12+ YRS 00:00:00 [place] [facility] SARS-COV-2 COVID-19 2020-11-11 Completed [facility] 12+ YRS 00:00:00 [place] [facility] SARS-COV-2 COVID-19 2020-11-11 Completed [facility] 12+ YRS 00:00:00 [place] [facility] SARS-COV-2 COVID-19 2020-11-11 Completed [facility] 12+ YRS 00:00:00 [place] [facility] SARS-COV-2 COVID-19 2020-11-11 Completed [facility] 12+ YRS 00:00:00 [place] [facility] SARS-COV-2 COVID-19 2020-11-11 Completed [facility] 12+ YRS 00:00:00 [place] [facility] SARS-COV-2 COVID-19 2020-11-11 Completed [facility] 12+ YRS 00:00:00 [place] [facility] SARS-COV-2 COVID-19 2020-11-11 Completed [facility] 12+ YRS 00:00:00 [place] [facility] SARS-COV-2 COVID-19 2020-11-11 Completed [facility] 12+ YRS 00:00:00 [place] [facility] SARS-COV-2 COVID-19 2020-11-11 Completed [facility] 12+ YRS 00:00:00 [place] [facility] SARS-COV-2 COVID-19 2020-11-11 Completed [facility] 12+ YRS 00:00:00 [place] [facility] SARS-COV-2 COVID-19 2020-11-11 Completed [facility] 12+ YRS 00:00:00 [place] [facility] SARS-COV-2 COVID-19 2020-11-11 Completed [facility] 12+ YRS 00:00:00 [place] [facility] SARS-COV-2 COVID-19 2020-11-11 Completed [facility] 12+ YRS 00:00:00 [place] [facility] SARS-COV-2 COVID-19 2020-11-11 Completed [facility] 12+ YRS 00:00:00 [place] [facility] SARS-COV-2 COVID-19 2020-11-11 Completed [facility] 12+ YRS 00:00:00 [place] [facility] SARS-COV-2 COVID-19 2020-11-11 Completed [facility] 12+ YRS 00:00:00 [place] [facility] SARS-COV-2 COVID-19 2020-11-11 Completed [facility] 12+ YRS 00:00:00 [place] [facility] SARS-COV-2 COVID-19 2020-11-11 Completed [facility] 12+ YRS 00:00:00 [place] [facility] SARS-COV-2 COVID-19 2020-11-11 Completed [facility] 12+ YRS 00:00:00 [place] [facility] SARS-COV-2 COVID-19 2020-11-11 Completed [facility] 12+ YRS 00:00:00 [place] [facility] SARS-COV-2 COVID-19 2020-11-11 Completed [facility] 12+ YRS 00:00:00 [place] [facility] SARS-COV-2 COVID-19 2020-11-11 Completed [facility] 12+ YRS 00:00:00 [place] [facility] SARS-COV-2 COVID-19 2020-11-11 Completed [facility] 12+ YRS 00:00:00 [place] [facility] SARS-COV-2 COVID-19 2020-11-11 Completed [facility] 12+ YRS 00:00:00 [place] [facility] SARS-COV-2 COVID-19 2020-11-11 Completed [facility] 12+ YRS 00:00:00 [place] [facility] SARS-COV-2 COVID-19 2020-11-11 Completed [facility] 12+ YRS 00:00:00 [place] [facility] SARS-COV-2 COVID-19 2020-11-11 Completed [facility] 12+ YRS 00:00:00 [place] [facility] SARS-COV-2 COVID-19 2020-11-11 Completed [facility] 12+ YRS 00:00:00 [place] [facility] SARS-COV-2 COVID-19 2020-11-11 Completed [facility] 12+ YRS 00:00:00 [place] [facility] SARS-COV-2 COVID-19 2020-11-11 Completed [facility] 12+ YRS 00:00:00 [place] [facility] SARS-COV-2 COVID-19 2020-11-11 Completed [facility] 12+ YRS 00:00:00 [place] [facility] SARS-COV-2 COVID-19 2020-11-11 Completed [facility] 12+ YRS 00:00:00 [place] [facility] SARS-COV-2 COVID-19 2020-11-11 Completed [facility] 12+ YRS 00:00:00 [place] [facility] SARS-COV-2 COVID-19 2020-11-11 Completed [facility] 12+ YRS 00:00:00 [place] [facility] SARS-COV-2 COVID-19 2020-11-11 Completed [facility] 12+ YRS 00:00:00 [place] [facility] SARS-COV-2 COVID-19 2020-11-11 Completed [facility] 12+ YRS 00:00:00 [place] [facility] SARS-COV-2 COVID-19 2020-11-11 Completed [facility] 12+ YRS 00:00:00 [place] [facility] SARS-COV-2 COVID-19 2020-11-11 Completed [facility] 12+ YRS 00:00:00 [place] [facility] SARS-COV-2 COVID-19 2020-11-11 Completed [facility] 12+ YRS 00:00:00 [place] [facility] SARS-COV-2 COVID-19 2020-11-11 Completed [facility] 12+ YRS 00:00:00 [place] [facility] SARS-COV-2 COVID-19 2020-11-11 Completed [facility] 12+ YRS 00:00:00 [place] [facility] SARS-COV-2 COVID-19 2020-11-11 Completed [facility] VACCINE 00:00:00 [place] [facility] SARS-COV-2 COVID-19 2020-11-11 Completed [facility] 12+ YRS 00:00:00 [place] [facility] SARS-COV-2 COVID-19 2020-11-11 Completed [facility] 12+ YRS 00:00:00 [place] [facility] SARS-COV-2 COVID-19 2020-11-11 Completed [facility] 12+ YRS 00:00:00 [place] [facility] SARS-COV-2 COVID-19 2020-11-11 Completed [facility] 12+ YRS 00:00:00 [place] [facility] SARS-COV-2 COVID-19 2020-11-11 Completed [facility] 12+ YRS 00:00:00 [place] [facility] SARS-COV-2 COVID-19 2020-11-11 Completed [facility] 12+ YRS 00:00:00 [place] [facility] SARS-COV-2 COVID-19 2020-11-11 Completed [facility] 12+ YRS 00:00:00 [place] [facility] SARS-COV-2 COVID-19 2020-11-11 Completed [facility] 12+ YRS 00:00:00 [place] [facility] SARS-COV-2 COVID-19 2020-11-11 Completed [facility] 12+ YRS 00:00:00 [place] [facility] SARS-COV-2 COVID-19 2020-11-11 Completed [facility] 12+ YRS 00:00:00 [place] [facility] SARS-COV-2 COVID-19 2020-11-11 Completed [facility] 12+ YRS 00:00:00 [place] [facility] SARS-COV-2 COVID-19 2020-11-11 Completed [facility] 12+ YRS 00:00:00 [place] [facility] SARS-COV-2 COVID-19 2020-11-11 Completed [facility] 12+ YRS 00:00:00 [place] [facility] SARS-COV-2 COVID-19 2020-11-11 Completed [facility] 12+ YRS 00:00:00 [place] [facility] SARS-COV-2 COVID-19 2020-11-11 Completed [facility] 12+ YRS 00:00:00 [place] [facility] SARS-COV-2 COVID-19 2020-11-11 Completed [facility] 12+ YRS 00:00:00 [facility] ical VACCINE Branch SARS-COV-2 COVID-19 2020-11-11 Completed [facility] of [facility]ER[facility] 12+ YRS 00:00:00 [facility] ical VACCINE Branch SARS-COV-2 COVID-19 2020-11-11 Completed [facility] of [facility] 12+ YRS 00:00:00 [facility] VACCINE Branch Influenza High Dose 2020-05-27 Completed [facility] 00:00:00 [facility] Influenza High Dose 2020-05-27 Completed [facility] 00:00:00 [facility] Influenza High Dose 2020-05-27 Completed [facility] 00:00:00 [facility] Influenza High Dose 2020-05-27 Completed [facility] 00:00:00 [facility] Influenza High Dose 2020-05-27 Completed [facility] 00:00:00 [facility] Influenza High Dose 2020-05-27 Completed [facility] 00:00:00 [facility] Influenza High Dose 2020-05-27 Completed [facility] 00:00:00 [facility] Influenza High Dose 2020-05-27 Completed [facility] 00:00:00 [facility] Influenza High Dose 2020-05-27 Completed [facility] 00:00:00 [facility] Influenza High Dose 2020-05-27 Completed [facility] 00:00:00 [facility] Influenza High Dose 2020-05-27 Completed [facility] 00:00:00 [facility] Influenza High Dose 2020-05-27 Completed [facility] 00:00:00 [facility] Influenza High Dose 2020-05-27 Completed [facility] 00:00:00 [facility] Influenza High Dose 2020-05-27 Completed [facility] 00:00:00 [facility] Influenza High Dose 2020-05-27 Completed [facility] 00:00:00 [facility] Influenza High Dose 2020-05-27 Completed [facility] 00:00:00 [facility] Influenza High Dose 2020-05-27 Completed [facility] 00:00:00 [facility] Influenza High Dose 2020-05-27 Completed [facility] 00:00:00 [facility] Influenza High Dose 2020-05-27 Completed [facility] 00:00:00 [facility] Influenza High Dose 2020-05-27 Completed [facility] 00:00:00 [facility] Influenza High Dose 2020-05-27 Completed [facility] 00:00:00 [facility] Influenza High Dose 2020-05-27 Completed [facility] 00:00:00 [facility] Influenza High Dose 2020-05-27 Completed [facility] 00:00:00 [facility] Influenza High Dose 2020-05-27 Completed [facility] 00:00:00 [facility] Influenza High Dose 2020-05-27 Completed [facility] 00:00:00 [facility] Influenza High Dose 2020-05-18 Completed [facility] of 00:00:00 [facility] Influenza High Dose 2020-05-18 Completed [facility] of 00:00:00 [facility] Influenza High Dose 2020-05-18 Completed [facility] of 00:00:00 [facility] Influenza High Dose 2020-05-18 Completed [facility] of 00:00:00 [facility] Influenza High Dose 2020-05-18 Completed [facility] of 00:00:00 [facility] Influenza High Dose 2020-05-18 Completed [facility] of 00:00:00 [facility] Influenza High Dose 2020-05-18 Completed [facility] of 00:00:00 [facility] Influenza High Dose 2020-05-18 Completed [facility] of 00:00:00 [facility] Influenza High Dose 2020-05-18 Completed [facility] of 00:00:00 [facility] Influenza High Dose 2020-05-18 Completed [facility] of 00:00:00 [facility] Influenza High Dose 2020-05-18 Completed [facility] of 00:00:00 [facility] Influenza High Dose 2020-05-18 Completed [facility] of 00:00:00 [facility] Influenza High Dose 2020-05-18 Completed [facility] of 00:00:00 [facility] Influenza High Dose 2020-05-18 Completed [facility] of 00:00:00 [facility] Influenza High Dose 2020-05-18 Completed [facility] of 00:00:00 [facility] Influenza High Dose 2020-05-18 Completed [facility] of 00:00:00 [facility] Influenza High Dose 2020-05-18 Completed [facility] of 00:00:00 [facility] Influenza High Dose 2020-05-18 Completed [facility] of 00:00:00 [facility] Influenza High Dose 2020-05-18 Completed [facility] of 00:00:00 [facility] Influenza High Dose 2020-05-18 Completed [facility] of 00:00:00 [facility] Influenza High Dose 2020-05-18 Completed [facility] of 00:00:00 [facility] Influenza High Dose 2020-05-18 Completed [facility] of 00:00:00 [facility] Influenza High Dose 2020-05-18 Completed [facility] of 00:00:00 [facility] Influenza High Dose 2020-05-18 Completed [facility] of 00:00:00 [facility] Influenza High Dose 2020-05-18 Completed [facility] of 00:00:00 [facility] Influenza High Dose 2020-05-18 Completed [facility] of 00:00:00 [facility] Influenza High Dose 2020-05-18 Completed [facility] of 00:00:00 [facility] Influenza High Dose 2020-05-18 Completed [facility] of 00:00:00 [facility] Influenza High Dose 2020-05-18 Completed [facility] of 00:00:00 [facility] Influenza High Dose 2020-05-18 Completed [facility] of 00:00:00 [facility] Influenza High Dose 2020-05-18 Completed [facility] of 00:00:00 [facility] Influenza High Dose 2020-05-18 Completed [facility] of 00:00:00 [facility] Influenza High Dose 2020-05-18 Completed [facility] of 00:00:00 [facility] Influenza High Dose 2020-05-18 Completed [facility] of 00:00:00 [facility] Influenza High Dose 2020-05-18 Completed [facility] of 00:00:00 [facility] Influenza High Dose 2020-05-18 Completed [facility] of 00:00:00 [facility] Influenza High Dose 2020-05-18 Completed [facility] of 00:00:00 [facility] Influenza High Dose 2020-05-18 Completed [facility] of 00:00:00 [facility] Influenza High Dose 2020-05-18 Completed [facility] of 00:00:00 [facility] Influenza High Dose 2020-05-18 Completed [facility] of 00:00:00 [facility] Influenza High Dose 2020-05-18 Completed [facility] of 00:00:00 [facility] Influenza High Dose 2020-05-18 Completed [facility] of 00:00:00 [facility] Influenza High Dose 2020-05-18 Completed [facility] of 00:00:00 [facility] Influenza High Dose 2020-05-18 Completed [facility] of 00:00:00 [facility] Influenza High Dose 2020-05-18 Completed [facility] of 00:00:00 [facility] Influenza High Dose 2020-05-18 Completed [facility] of 00:00:00 [facility] Influenza High Dose 2020-05-18 Completed [facility] of 00:00:00 [facility] Influenza High Dose 2020-05-18 Completed [facility] of 00:00:00 [facility] Influenza High Dose 2020-05-18 Completed [facility] of 00:00:00 [facility] Influenza High Dose 2020-05-18 Completed [facility] of 00:00:00 [facility] Influenza High Dose 2020-05-18 Completed [facility] of 00:00:00 [facility] Influenza High Dose 2020-05-18 Completed [facility] of 00:00:00 [facility] Influenza High Dose 2020-05-18 Completed [facility] of 00:00:00 [facility] Influenza High Dose 2020-05-18 Completed [facility] of 00:00:00 [facility] Influenza High Dose 2020-05-18 Completed [facility] of 00:00:00 [facility] Influenza High Dose 2020-05-18 Completed [facility] of 00:00:00 [facility] Influenza High Dose 2020-05-18 Completed [facility] of 00:00:00 [facility] Influenza High Dose 2020-05-18 Completed [facility] of 00:00:00 [facility] Influenza High Dose 2020-05-18 Completed [facility] 00:00:00 [facility] Influenza High Dose 2020-05-18 Completed [facility] 00:00:00 [facility] Influenza High Dose 2020-05-18 Completed [facility] 00:00:00 [facility] Influenza High Dose 2020-05-18 Completed [facility] 00:00:00 [facility] Influenza High Dose 2020-05-18 Completed [facility] 00:00:00 [facility] Influenza High Dose 2020-05-18 Completed [facility] 00:00:00 [facility] Influenza High Dose 2020-05-18 Completed [facility] 00:00:00 [facility] Influenza High Dose 2020-05-18 Completed [facility] 00:00:00 [facility] Influenza High Dose 2020-05-18 Completed [facility] 00:00:00 [facility] Influenza High Dose 2020-05-18 Completed [facility] 00:00:00 [facility] Influenza High Dose 2020-05-18 Completed [facility] 00:00:00 [facility] Influenza High Dose 2020-05-18 Completed [facility] 00:00:00 [facility] Influenza High Dose 2020-05-18 Completed [facility] 00:00:00 [facility] Influenza High Dose 2020-05-18 Completed [facility] 00:00:00 [facility] Influenza High Dose 2020-05-18 Completed [facility] 00:00:00 [facility] Influenza High Dose 2020-05-18 Completed [facility] 00:00:00 [facility] Influenza High Dose 2020-05-18 Completed [facility] 00:00:00 [facility] Influenza High Dose 2020-05-18 Completed [facility] 00:00:00 [facility] Influenza High Dose 2020-05-18 Completed [facility] 00:00:00 [facility] Influenza High Dose 2020-05-18 Completed [facility] 00:00:00 [facility] Influenza High Dose 2020-05-18 Completed [facility] 00:00:00 [facility] Influenza High Dose 2020-05-18 Completed [facility] 00:00:00 [facility] Influenza High Dose 2020-05-18 Completed [facility] 00:00:00 [facility] Influenza High Dose 2020-05-18 Completed [facility] 00:00:00 [facility] Influenza High Dose 2020-05-18 Completed [facility] 00:00:00 [facility] Influenza High Dose 2020-05-18 Completed [facility] 00:00:00 [facility] Influenza High Dose 2020-05-18 Completed [facility] 00:00:00 [facility] Influenza High Dose 2020-05-18 Completed [facility] 00:00:00 [facility] Influenza High Dose 2020-05-18 Completed [facility] 00:00:00 [facility] Influenza High Dose 2020-05-18 Completed [facility] 00:00:00 [facility] Influenza High Dose 2020-05-18 Completed [facility] 00:00:00 [facility] Influenza High Dose 2020-05-18 Completed [facility] 00:00:00 [facility] Influenza High Dose 2020-05-18 Completed [facility] 00:00:00 [facility] Influenza High Dose 2020-05-18 Completed [facility] 00:00:00 [facility] Influenza High Dose 2019-07-19 Completed [facility] 00:00:00 [facility] Influenza High Dose 2019-07-19 Completed [facility] 00:00:00 [facility] Influenza High Dose 2019-07-19 Completed [facility] 00:00:00 [facility] Influenza High Dose 2019-07-19 Completed [facility] 00:00:00 [facility] Influenza High Dose 2019-07-19 Completed [facility] 00:00:00 [facility] Influenza High Dose 2019-07-19 Completed [facility] 00:00:00 [facility] Influenza High Dose 2019-07-19 Completed [facility] 00:00:00 [facility] Influenza High Dose 2019-07-19 Completed [facility] 00:00:00 [facility] Influenza High Dose 2019-07-19 Completed [facility] 00:00:00 [facility] Influenza High Dose 2019-07-19 Completed [facility] 00:00:00 [facility] Influenza High Dose 2019-07-19 Completed [facility] 00:00:00 [facility] Influenza High Dose 2019-07-19 Completed [facility] 00:00:00 [facility] Influenza High Dose 2019-07-19 Completed [facility] 00:00:00 [facility] Influenza High Dose 2019-07-19 Completed [facility] 00:00:00 [facility] Influenza High Dose 2019-07-19 Completed [facility] 00:00:00 [facility] Influenza High Dose 2019-07-19 Completed [facility] 00:00:00 [facility] Influenza High Dose 2019-07-19 Completed [facility] 00:00:00 [facility] Influenza High Dose 2019-07-19 Completed [facility] 00:00:00 [facility] Influenza High Dose 2019-07-19 Completed [facility] 00:00:00 [facility] Influenza High Dose 2019-07-19 Completed [facility] 00:00:00 [facility] Influenza High Dose 2019-07-19 Completed [facility] 00:00:00 [facility] Influenza High Dose 2019-07-19 Completed [facility] 00:00:00 [facility] Influenza High Dose 2019-07-19 Completed [facility] 00:00:00 [facility] Influenza High Dose 2019-07-19 Completed [facility] 00:00:00 [facility] Influenza High Dose 2019-07-19 Completed [facility] 00:00:00 [facility] Vital Signs Vital Name Observation Time Observation Value Comments Source Systolic blood 2023-02-08 138 mm[Hg] [facility] pressure 15:07:00 [facility] Diastolic blood 2023-02-08 83 mm[Hg] [facility] pressure 15:07:00 [facility] Heart rate 2023-02-08 65 /min University of 15:07:00 [facility] Body weight 2023-02-08 85.548 kg University of 15:07:00 [facility] BMI 2023-02-08 27.85 kg/m2 University of 15:07:00 [facility] Systolic blood 2023-02-04 140 mm[Hg] [facility] of pressure 20:28:00 [facility] Diastolic blood 2023-02-04 72 mm[Hg] [facility] pressure 20:28:00 [facility] Heart rate 2023-02-04 69 /min University of 20:21:00 [facility] Body temperature 2023-02-04 36.56 Joana University of 20:21:00 [facility] Respiratory rate 2023-02-04 18 /min University of 20:21:00 [facility] Body height 2023-02-04 175.3 cm University of 20:21:00 [facility] Body weight 2023-02-04 84.913 kg University of 20:21:00 [facility] BMI 2023-02-04 27.64 kg/m2 University of 20:21:00 [facility] Oxygen saturation 2023-02-04 97 /min University of in Arterial blood 20:21:00 [facility] by Pulse oximetry Branch Systolic blood 2023-01-12 127 mm[Hg] [facility] of pressure 18:13:00 [facility] Diastolic blood 2023-01-12 77 mm[Hg] [facility] pressure 18:13:00 [facility] Heart rate 2023-01-12 71 /min University of 18:13:00 [facility] Body temperature 2023-01-12 36.56 Joana University of 18:13:00 [facility] Respiratory rate 2023-01-12 20 /min University of 18:13:00 [facility] Body height 2023-01-12 175.3 cm University of 18:13:00 [facility] Body weight 2023-01-12 86.274 kg University of 18:13:00 [facility] BMI 2023-01-12 28.09 kg/m2 University of 18:13:00 [facility] Oxygen saturation 2023-01-12 97 /min University of in Arterial blood 18:13:00 [facility] by Pulse oximetry Branch Systolic blood 2023-01-04 130 mm[Hg] [facility] of pressure 19:31:00 [facility] Diastolic blood 2023-01-04 84 mm[Hg] [facility] pressure 19:31:00 [facility] Heart rate 2023-01-04 83 /min University of 19:31:00 [facility] Body height 2023-01-04 175.3 cm University of 19:31:00 [facility] Body weight 2023-01-04 86.183 kg University of 19:31:00 [facility] BMI 2023-01-04 28.06 kg/m2 University of 19:31:00 [facility] Oxygen saturation 2023-01-04 95 /min University of in Arterial blood 19:31:00 [facility] by Pulse oximetry Branch Systolic blood 2022-12-10 146 mm[Hg] [facility] pressure 15:35:00 [facility] Diastolic blood 2022-12-10 85 mm[Hg] [facility] pressure 15:35:00 [facility] Heart rate 2022-12-10 70 /min University of 15:34:00 [facility] Body temperature 2022-12-10 36.22 Joana University [facility] 15:34:00 [facility] Respiratory rate 2022-12-10 20 /min University of 15:34:00 [facility] Body height 2022-12-10 175.3 cm University of 15:34:00 [facility] Body weight 2022-12-10 87.998 kg University of 15:34:00 [facility] BMI 2022-12-10 28.65 kg/m2 University of 15:34:00 [facility] Oxygen saturation 2022-12-10 97 /min University of in Arterial blood 15:34:00 [place] [facility] Pulse oximetry [facility] Systolic blood 2022-11-25 153 mm[Hg] [facility] pressure 17:23:00 [facility] Diastolic blood 2022-11-25 87 mm[Hg] [facility] pressure 17:23:00 [facility] Heart rate 2022-11-25 85 /min University of 17:22:00 [facility] Respiratory rate 2022-11-25 20 /min University of 17:22:00 [facility] Body height 2022-11-25 175.3 cm University of 17:22:00 [facility] Body weight 2022-11-25 87.998 kg University of 17:22:00 [facility] BMI 2022-11-25 28.65 kg/m2 University of 17:22:00 [facility] Oxygen saturation 2022-11-25 98 /min University of in Arterial blood 17:22:00 [place] [facility] Pulse oximetry [facility] Systolic blood 2022-11-13 138 mm[Hg] [facility] pressure 16:28:00 [facility] Diastolic blood 2022-11-13 88 mm[Hg] [facility] pressure 16:28:00 [facility] Heart rate 2022-11-13 78 /min University of 16:28:00 [facility] Respiratory rate 2022-11-13 19 /min University of 16:28:00 [facility] Body height 2022-11-13 175.3 cm University of 16:28:00 [facility] Body weight 2022-11-13 87.998 kg University of 16:28:00 [facility] BMI 2022-11-13 28.65 kg/m2 University of 16:28:00 [facility] Oxygen saturation 2022-11-13 98 /min University of in Arterial blood 16:28:00 [facility] by Pulse oximetry Branch Systolic blood 2022-10-02 128 mm[Hg] manual [facility] of pressure 20:00:00 [facility] Diastolic blood 2022-10-02 66 mm[Hg] manual [facility] o f pressure 20:00:00 [facility] Heart rate 2022-10-02 71 /min University of 20:00:00 [facility] Respiratory rate 2022-10-02 20 /min University of 20:00:00 [facility] Body weight 2022-10-02 85.911 kg University of 20:00:00 [facility] BMI 2022-10-02 27.97 kg/m2 University of 20:00:00 [facility] Oxygen saturation 2022-10-02 98 /min arrived on RA; [facility] of in Arterial blood 20:00:00 exercised on RA [facility] by Pulse oximetry Branch Systolic blood 2022-09-30 122 mm[Hg] [facility] of pressure 15:45:00 [facility] Diastolic blood 2022-09-30 68 mm[Hg] [facility] pressure 15:45:00 [facility] Heart rate 2022-09-30 82 /min University of 15:45:00 [facility] Body weight 2022-09-30 87.091 kg University of 15:45:00 [facility] BMI 2022-09-30 28.35 kg/m2 University of 15:45:00 [facility] Oxygen saturation 2022-09-30 99 /min University of in Arterial blood 15:45:00 [facility] by Pulse oximetry Branch Systolic blood 2022-09-23 126 mm[Hg] manually; [facility] pressure 16:00:00 initial BP [facility] 138/70; ~2-3 Branch mins rest, 126/68 manual Diastolic blood 2022-09-23 68 mm[Hg] manually; [facility] pressure 16:00:00 initial BP [facility] 138/70; ~2-3 Branch mins rest, 126/68 manual Heart rate 2022-09-23 73 /min University of 16:00:00 [facility] Respiratory rate 2022-09-23 20 /min University of 16:00:00 [facility] Body weight 2022-09-23 86.274 kg University of 16:00:00 [facility] BMI 2022-09-23 28.09 kg/m2 University of 16:00:00 [facility] Oxygen saturation 2022-09-23 100 /min arrived on RA; Universi [facility] of in Arterial blood 16:00:00 exercised on RA [place] [facility] Pulse oximetry [facility] Systolic blood 2022-09-21 124 mm[Hg] manual [facility] pressure 16:00:00 [facility] Diastolic blood 2022-09-21 70 mm[Hg] manual [facility] o [facility] pressure 16:00:00 [facility] Heart rate 2022-09-21 84 /min University [facility] 16:00:00 [facility] Respiratory rate 2022-09-21 20 /min University of 16:00:00 [facility] Body weight 2022-09-21 85.458 kg University of 16:00:00 [facility] BMI 2022-09-21 27.82 kg/m2 University of 16:00:00 [facility] Oxygen saturation 2022-09-21 98 /min arrived on RA; Universi ty of in Arterial blood 16:00:00 exercised on RA [facility] edical by Pulse oximetry Branch Systolic blood 2022-09-16 124 mm[Hg] manual [facility] of pressure 16:00:00 [facility] Diastolic blood 2022-09-16 60 mm[Hg] manual [facility] o [facility] pressure 16:00:00 [facility] Heart rate 2022-09-16 90 /min University of 16:00:00 [facility] Respiratory rate 2022-09-16 20 /min [facility] of 16:00:00 [facility] Body weight 2022-09-16 86.274 kg University of 16:00:00 [facility] BMI 2022-09-16 28.09 kg/m2 University of 16:00:00 [facility] Oxygen saturation 2022-09-16 100 /min arrived on RA; [facility]i [facility] in Arterial blood 16:00:00 exercised on RA [place] [facility] Pulse oximetry [facility] Systolic blood 2022-09-15 126 mm[Hg] [facility] pressure 16:00:00 [facility] Diastolic blood 2022-09-15 56 mm[Hg] [facility] o [facility] pressure 16:00:00 [facility] Heart rate 2022-09-15 99 /min [facility] 16:00:00 [facility] Body weight 2022-09-15 84.278 kg University of 16:00:00 [facility] BMI 2022-09-15 27.44 kg/m2 University of 16:00:00 [facility] Oxygen saturation 2022-09-15 99 /min University of in Arterial blood 16:00:00 [place] [facility] Pulse oximetry [facility] Systolic blood 2022-09-09 120 mm[Hg] manual [facility] of pressure 16:00:00 [facility] Diastolic blood 2022-09-09 60 mm[Hg] manual [facility] o f pressure 16:00:00 [facility] Heart rate 2022-09-09 82 /min University of 16:00:00 [facility] Respiratory rate 2022-09-09 20 /min [facility] of 16:00:00 [facility] Body weight 2022-09-09 84.732 kg University of 16:00:00 [facility] BMI 2022-09-09 27.59 kg/m2 University of 16:00:00 [facility] Oxygen saturation 2022-09-09 98 /min [facility] of in Arterial blood 16:00:00 [facility] by Pulse oximetry Branch Systolic blood 2022-09-07 124 mm[Hg] manual [facility] of pressure 16:00:00 [facility] Diastolic blood 2022-09-07 70 mm[Hg] manual [facility] o [facility] pressure 16:00:00 [facility] Heart rate 2022-09-07 95 /min [facility] of 16:00:00 [facility] Respiratory rate 2022-09-07 20 /min University of 16:00:00 [facility] Body weight 2022-09-07 84.641 kg University of 16:00:00 [facility] BMI 2022-09-07 27.56 kg/m2 University of 16:00:00 [facility] Oxygen saturation 2022-09-07 98 /min arrived on RA; [facility] of in Arterial blood 16:00:00 exercised on RA [place] [email or web address] by Pulse oximetry Branch Systolic blood 2022-09-03 118 mm[Hg] manual [facility] of pressure 17:00:00 [facility] Diastolic blood 2022-09-03 70 mm[Hg] manual [facility] o f pressure 17:00:00 [facility] Heart rate 2022-09-03 69 /min University of 17:00:00 [facility] Respiratory rate 2022-09-03 20 /min [facility] of 17:00:00 [facility] Body weight 2022-09-03 84.188 kg University of 17:00:00 [facility] BMI 2022-09-03 27.41 kg/m2 University of 17:00:00 [facility] Oxygen saturation 2022-09-03 98 /min arrived on RA; Universi ty of in Arterial blood 17:00:00 exercised on RA [facility] edical by Pulse oximetry Branch Systolic blood 2022-08-31 130 mm[Hg] manual [facility] of pressure 15:55:00 [facility] Diastolic blood 2022-08-31 70 mm[Hg] manual [facility] o f pressure 15:55:00 [facility] Heart rate 2022-08-31 75 /min University of 15:55:00 [facility] Respiratory rate 2022-08-31 20 /min University of 15:55:00 [facility] Body weight 2022-08-31 85.095 kg University of 15:55:00 [facility] BMI 2022-08-31 27.70 kg/m2 University of 15:55:00 [facility] Oxygen saturation 2022-08-31 98 /min arrived on RA; [facility] in Arterial blood 15:55:00 exercised on RA [facility] edical by Pulse oximetry Branch Systolic blood 2022-08-24 128 mm[Hg] [facility] pressure 17:43:00 [facility] Diastolic blood 2022-08-24 84 mm[Hg] [facility] pressure 17:43:00 [facility] Heart rate 2022-08-24 69 /min University of 17:43:00 [facility] Respiratory rate 2022-08-24 19 /min University of 17:43:00 [facility] Body height 2022-08-24 175.3 cm University of 17:43:00 [facility] Body weight 2022-08-24 82.283 kg University of 17:43:00 [facility] BMI 2022-08-24 26.79 kg/m2 University of 17:43:00 [facility] Oxygen saturation 2022-08-24 92 /min University of in Arterial blood 17:43:00 [facility] by Pulse oximetry Branch Systolic blood 2022-08-12 118 mm[Hg] manual [facility] of pressure 16:00:00 [facility] Diastolic blood 2022-08-12 60 mm[Hg] manual [facility] o [facility] pressure 16:00:00 [facility] Heart rate 2022-08-12 75 /min University of 16:00:00 [facility] Respiratory rate 2022-08-12 22 /min [facility] of 16:00:00 [facility] Body weight 2022-08-12 84.278 kg University of 16:00:00 [facility] BMI 2022-08-12 27.44 kg/m2 University of 16:00:00 [facility] Oxygen saturation 2022-08-12 98 /min arrived on RA; [facility] in Arterial blood 16:00:00 exercised on RA [facility] edical by Pulse oximetry Branch Systolic blood 2022-08-10 128 mm[Hg] manual [facility] pressure 16:00:00 [facility] Diastolic blood 2022-08-10 58 mm[Hg] manual [facility] o f pressure 16:00:00 [facility] Heart rate 2022-08-10 83 /min [facility] of 16:00:00 [facility] Respiratory rate 2022-08-10 22 /min [facility] 16:00:00 [facility] Body weight 2022-08-10 84.55 kg University of 16:00:00 [facility] BMI 2022-08-10 27.53 kg/m2 [facility] 16:00:00 [facility] Oxygen saturation 2022-08-10 98 /min arrived on RA; [facility] in Arterial blood 16:00:00 exercised on RA [facility] edical by Pulse oximetry Branch Systolic blood 2022-08-05 134 mm[Hg] manual [facility] pressure 15:00:00 [facility] Diastolic blood 2022-08-05 58 mm[Hg] manual [facility] pressure 15:00:00 [facility] Heart rate 2022-08-05 91 /min [facility] of 15:00:00 [facility] Respiratory rate 2022-08-05 20 /min [facility] 15:00:00 [facility] Body weight 2022-08-05 85.821 kg University of 15:00:00 [facility] BMI 2022-08-05 27.94 kg/m2 [facility] 15:00:00 [facility] Oxygen saturation 2022-08-05 99 /min arrived on RA; [facility] in Arterial blood 15:00:00 exercised on RA [facility] edical by Pulse oximetry Branch Systolic blood 2022-08-04 155 mm[Hg] [facility] pressure 18:41:00 [facility] Diastolic blood 2022-08-04 81 mm[Hg] [facility] o f pressure 18:41:00 [facility] Heart rate 2022-08-04 73 /min University of 18:41:00 [facility] Body temperature 2022-08-04 36.83 Joana University of 18:41:00 [facility] Body height 2022-08-04 175.3 cm University of 18:41:00 [facility] Body weight 2022-08-04 85.73 kg University of 18:41:00 [facility] BMI 2022-08-04 27.91 kg/m2 University of 18:41:00 [facility] Oxygen saturation 2022-08-04 98 /min [facility] of in Arterial blood 18:41:00 [place] [facility] Pulse oxim[facility] Systolic blood 2022-07-31 139 mm[Hg] [facility] pressure 16:57:00 [facility] Diastolic blood 2022-07-31 81 mm[Hg] [facility] o [facility] pressure 16:57:00 [facility] Heart rate 2022-07-31 90 /min [facility] of 16:57:00 [facility] Body temperature 2022-07-31 36.61 Joana University of 16:57:00 [facility] Respiratory rate 2022-07-31 24 /min University of 16:57:00 [facility] Body height 2022-07-31 175.3 cm University of 16:57:00 [facility] Body weight 2022-07-31 83.462 kg University of 16:57:00 [facility] BMI 2022-07-31 27.17 kg/m2 University of 16:57:00 [facility] Oxygen saturation 2022-07-31 95 /min [facility] of in Arterial blood 16:57:00 [facility] Pulse oxim[facility] Systolic blood 2022-07-29 124 mm[Hg] manual; right University o f pressure 14:30:00 arm 126/70 [facility] manual Branch Diastolic blood 2022-07-29 66 mm[Hg] manual; right University of pressure 14:30:00 arm 126/70 [facility] Heart rate 2022-07-29 80 /min University of 14:30:00 [facility] Respiratory rate 2022-07-29 20 /min University of 14:30:00 [facility] Body weight 2022-07-29 83.099 kg University of 14:30:00 [facility] BMI 2022-07-29 27.05 kg/m2 University of 14:30:00 [facility] Oxygen saturation 2022-07-29 98 /min arrived on RA; [facility] in Arterial blood 14:30:00 6MW on RA [facility] by Pulse oximetry Branch Systolic blood 2022-07-13 137 mm[Hg] [facility] of pressure 13:59:00 [facility] Diastolic blood 2022-07-13 80 mm[Hg] University o f pressure 13:59:00 [facility] Heart rate 2022-07-13 80 /min University of 13:59:00 [facility] Respiratory rate 2022-07-13 19 /min University of 13:56:00 [facility] Body height 2022-07-13 175.3 cm University of 13:56:00 [facility] Body weight 2022-07-13 84.188 kg University of 13:56:00 [facility] BMI 2022-07-13 27.41 kg/m2 University of 13:56:00 [facility] Oxygen saturation 2022-07-13 96 /min [place] of in Arterial blood 13:56:00 [facility] by Pulse oximetry Branch Systolic blood 2022-03-27 144 mm[Hg] University of pressure 17:02:00 [facility] Branch Diastolic blood 2022-03-27 87 mm[Hg] University o f pressure 17:02:00 [facility] Heart rate 2022-03-27 84 /min University of 16:57:00 [facility] Branch Respiratory rate 2022-03-27 19 /min University of 16:57:00 [facility] Branch Body height 2022-03-27 175.3 cm University of 16:57:00 [facility] Body weight 2022-03-27 83.598 kg University of 16:57:00 [facility] BMI 2022-03-27 27.22 kg/m2 University of 16:57:00 [facility] Oxygen saturation 2022-03-27 96 /min University of in Arterial blood 16:57:00 [facility]mer by Pulse oximetry Branch Systolic blood 2022-12-04 141 mm[Hg] [facility] pressure 00:15:00 [facility] Diastolic blood 2022-12-04 71 mm[Hg] [facility] pressure 00:15:00 Hospital Heart rate 2022-12-04 70 /min [facility] 00:15:00 Hospital Respiratory rate 2022-12-04 20 /min [facility] 00:15:00 Hospital Oxygen saturation 2022-12-04 98 /min [facility] in Arterial blood 00:15:00 [facility] by Pulse oximetry Body temperature 2022-12-03 36.56 Joana [facility] 21:25:00 Hospital Body height 2022-12-03 175.3 cm [facility] 18:25:00 Hospital Body weight 2022-12-03 86.682 kg [facility] 18:25:00 [facility] BMI 2022-12-03 28.22 kg/m2 [facility] 18:25:00 Hospital Procedures Procedure Date / Time Performing Clinician Source Performed ASSIGNMENT OF BENEFITS 2023-02-08 14:59:17 Doctor Unassigned, No [facility] EXTERNAL PROVIDER 2023-01-22 05:01:00 Doctor Unassigned, No [facility] PHYSICIAN ORDERS 2022-12-07 06:01:00 Doctor Unassigned, No [facility] CV LEFT HEART CATH LV 2022-12-03 21:13:11 [facility] CORS COVID-19 QUALITATIVE 2022-12-02 20:24:00 Odalys Jair [facility] RT-PCR BASIC METABOLIC PANEL 2022-12-02 20:24:00 [facility] CBC WITH PLATELET AND 2022-12-02 20:24:00 [facility] DIFFERENTIAL ESTIMATED GFR 2022-12-02 20:24:00 Odalys [facility] Ho spital MR LUMBAR SPINE WO 2022-11-25 20:57:29 Jimenez [facility] CONTRAST Phylicia M [facility] PULMONARY REHAB SESSION 2022-09-30 06:00:00 Doctor Unassigned, N o [facility] REPORT Name [facility] PULMONARY REHAB SESSION 2022-09-21 06:00:00 Doctor Unassigned, N o [facility] REPORT Name [facility] PULMONARY REHAB SESSION 2022-09-09 06:00:00 Doctor Unassigned, N o [facility] REPORT Name [facility] PULMONARY REHAB ITP 2022-09-03 23:08:00 Doctor Unassigned, No [facility] REPORT Name [facility] XR CHEST 2 VW 2022-08-24 18:40:41 Tenisha Klein [place] o f [facility] Branch PULMONARY REHAB SESSION 2022-08-12 06:00:00 Doctor Unassigned, N o [facility] REPORT Name Medical Branch PULMONARY REHAB SESSION 2022-08-10 06:00:00 Doctor Unassigned, N o [facility] REPORT Name Medical Branch PULMONARY REHAB ITP 2022-08-05 19:29:00 Doctor Unassigned, No [facility] REPORT Name [facility] PULMONARY REHAB ITP 2022-08-03 21:12:00 Doctor Unassigned, No [facility] REPORT Name [facility] XR CHEST 2 VW 2022-07-31 17:33:00 Cliff Hernadez [facility] POCT MOLECULAR FLU 2022-07-31 17:15:00 Unknown, [facility] SARS-COV-2 ANTIGEN 2022-07-31 17:01:00 Socorro Veloz [facility] (BINAX NOW) Medical Branch CONSENT/REFUSAL FOR 2022-07-29 05:01:00 Doctor Unassigned, No [facility] DIAGNOSIS AND TREATMENT Name Medical Branch PULMONARY FUNCTION TEST 2022-06-17 18:02:07 Tenisha Klein [facility] (RESULTS) Medical Branch Plan of Care Planned Activity Planned Date Details Comments Source Future Scheduled 2023-03-18 [facility] Test 15:11:58 malignant neoplasm of colon (procedure) [code = 034127245] Future Scheduled 2023-03-18 [facility] Test 15:11:58 malignant neoplasm of colon (procedure) [code = 823784887] Future Scheduled 2023-03-18 [facility] Test 15:11:58 malignant neoplasm of colon (procedure) [code = 094987692] Future Scheduled 2023-03-18 65+ PNEUMOCOCCAL [facility] Test 15:11:58 VACCINE (1 - PCV) [code = 65+ PNEUMOCOCCAL VACCINE (1 - PCV)] Future Scheduled 2023-03-18 Hepatitis C screening [facility] Test 15:11:58 (procedure) [code = 297705037] Future Scheduled 2023-03-18 Screening for [facility] Test 15:11:58 malignant neoplasm of colon (procedure) [code = 892214313] Future Scheduled 2023-03-18 Screening for [facility] Test 15:11:58 malignant neoplasm of colon (procedure) [code = 768204658] Future Scheduled 2023-03-18 SHINGLES VACCINES (1 Met [facility] Test 15:11:58 of 2) [code = SHINGLES VACCINES (1 of 2)] Future Scheduled 2023-03-18 COVID-19 VACCINE (3 - [facility] Test 15:11:58 Moderna series) [code = COVID-19 VACCINE (3 - Moderna series)] Future Scheduled 2023-03-18 BREAST CANCER [facility] Test 15:11:58 SCREENING [code = BREAST CANCER SCREENING] Future Scheduled 2023-03-18 INFLUENZA VACCINE [facility] Test 15:11:58 [code = INFLUENZA VACCINE] Encounters Start End Encounter Admission Attending Care Care Encounter Source Date/Time Date/Time Type Type Clinicians Facility Department ID 2021-08-01 Emergency [facility] [id number] [facility]23-08-13 2023-08-13 Outpatient R STEPHANIE [facility] [id number] Univers 10:00:00 10:00:[address] [facility] 2023 2023 Outpatient R JIMENEZ [facility] [id number] Univers 15:30:00 15:30:00 , PHYLICIA [facility] 2023-03-30 2023-03-30 Refill [facility] 1.2.840.114 [id number] Univers 00:00:00 00:00:00 [facility] 350.1.13.10 ity [place] 4.2.7.2.686 Vahe as DARVIN?BLEA [phone] [address] MEDICAL OFFICE BUILDING 2023-02-09 2023-02-09 [facility] [id number] Univers 13:00:00 14:18:[address] [facility] 2023-02-09 2023-02-09 Ancillary Yanique Estevez [facility] 1.2.840 .114 [id number] Univers 13:00:00 14:18:54 Visit Reta Nam NARESH 350.1.13.10 ity of [place] [id number] [place] dical NAL 179 [facility] 2023-02-08 2023-02-08 Outpatient R STEPHANIE [facility] [id number] Univers 10:00:00 10:21:24 MARLY ity [facility] 2023-02-08 2023-02-08 [facility] 1.2.840.114 [id number] Univers 10:00:00 10:21:24 Visit Marly [facility] 350.1.13.10 it y of [place] 4.2.7.2.686 Vahe as DARVIN?BLEA [phone] W[place] dical YOANEY 092 [facility] 2023-02-08 2023-02-08 Orders Doctor GOODMAN 1.2.840.114 [id number] Univers 00:00:00 00:00:00 Only Unassigned, CLARISSA 350.1.13.10 ity of [place] [facility] 4.2.7.2.686 Vahe as [phone] [address] 2023-02-05 2023-02-05 Outpatient R STEPHANIE [facility] [id number] Univers 13:00:00 13:00:00 MARLY ity [facility] 2023-02-04 2023-02-04 Outpatient Santosh GAONA [facility] [id number] Univers 15:20:00 15:56:12 , PHYLICIA it y of [facility] 2023-02-04 2023-02-04 Office [facility] 1.2.840.114 [id number] Univers 15:20:00 15:56:12 Visit , Phylicia SPAULDING 350.1.13.10 ity of [place] 4.2.7.2.686 Vahe as DARVIN?BLEA [phone] Wv dical KNEY 044 [facility] 2023-02-03 2023-02-03 Ancillary Chacha Oliveira [facility] 1 .2.840.114 [id number] Univers 09:30:00 10:28:06 Visit Phylicia Gaona 350. 1.13.10 ity of [place] [phone] W[place] dicskylar CARVER 179 [facility] 2023-01-22 2023-01-22 Orders Doctor MAXINE 1.2.840.114 [id number] Univers 00:00:00 00:00:00 Only Unassigned, CLARISSA 350.1.13.10 ity of [place] [facility] 4.2.7.2.686 Vahe as [phone] [address] 2023-01-12 2023-01-12 Outpatient R JIMENEZ [facility] [id number] Univers 13:30:00 13:45:00 , PHYLICIA it y [facility] 2023-01-12 2023-01-12 Office Jimenez [facility] 1.2.840.114 [id number] Univers 13:30:00 13:45:00 Visit Phylicia 350.1.13.10 ity of [place] 4.2.7.2.686 Vahe as DARVIN?BLEA [phone] Wv dicskylar JESUS 044 [facility] 2023-01-07 2023-01-07 Outpatient R JIMENEZ [facility] [id number] Univers 13:30:00 13:30:00 , PHYLICIA it y [facility] 2023-01-04 2023-01-04 Outpatient R NARENDRA ORTEGA [facility] [id number] Univers 14:30:00 15:16:40 NARENDRA ORTEGA [facility] 2023-01-04 2023-01-04 Office Marly Brown [facility] 1.2.840.114 [id number] Univers 14:30:00 15:16:40 Visit Narendra Ortega [facility] 350.1.13. 10 ity of [place] 4.2.7.2.686 Vahe as DARVIN?BLEA [phone] Wv dicskylar MILTONEY 092 [facility] OFFICE [facility] [address] 2022-12-10 2022-12-10 Outpatient R [facility] [id number] Univers 09:30:00 09:59:40 , PHYLICIA milian [facility] 2022-12-10 2022-12-10 Office [facility] 1.2.840.114 [id number] Univers 09:30:00 09:59:40 Visit , Phylicia SPAULDING 350.1.13.10 ity of [place] 4.2.7.2.686 Vahe as DARVIN?BLEA [phone] [address] MEDICAL OFFICE BUILDING 2022-12-07 2022-12-07 Outpatient R ABDON DOVE [facility] [id number] Univers 10:00:00 10:00:00 ABDON DOVE lavinia [facility] 2022-12-07 2022-12-07 Orders Doctor MAXINE 1.2.840.114 [id number] Univers 00:00:00 00:00:00 Only Unassigned, CLARISSA 350.1.13.10 ity of [place] [facility] 4.2.7.2.686 Vahe as [id number] [address] 2022-12-03 2022-12-03 Hospital Attar, 1.2.840.1 [id number] Methodi 11:46:00 18:22:00 Encounter Jair 71359.1.1 971 s t 3.430.2.7 Hospit a .3.198592 l .8 2022-12-03 2022-12-03 Outpatient R [facility] [id number] Univers 16:00:00 16:00:00 , PHYLICIA milian [facility] 2022-12-03 2022-12-03 Surgery Attar, 1.2.840.1 [id number] Methodi 14:00:00 15:00:[address] 3.430.2.7 Hospit a .3.485535 l .8 2022-12-03 2022-12-03 Travel 1.2.840.1 1.2.618.651 [id number] Methodi 00:00:00 00:00:[address] 3.430.2.7 0.2.7.3.698 Ho spita .3.331504 084.8 l .8 2022-12-03 2022-12-03 Outpatient ATTAR, [facility] [id number] [place] 00:00:00 00:00:[address] 2022-12-02 2022-12-02 Lab Attar, 1.2.840.1 [id number] Methodi 14:00:00 14:05:[address] 3.430.2.7 Hospit a .3.470174 l .8 2022-12-02 2022-12-02 Travel 1.2.840.1 1.2.516.997 [id number] Methodi 00:00:00 00:00:[address] 3.430.2.7 0.2.7.3.698 Ho spita .3.893140 084.8 l .8 2022-12-02 2022-12-02 Community Attar, 1.2.840.1 [id number] Methodi 00:00:00 00:00:[address]1.[address] 3.430.2.7 Hospit a .3.312533 l .8 2022-12-02 2022-12-02 Outpatient ATTAR, [facility] [id number] [place] 00:00:00 00:00:[address] 2022-12-02 2022-12-02 Refill Jimenez [facility] 1.2.840.114 [id number] [facility] 00:00:00 00:00:00 , [facility] 350.1.13.10 ity of [place] 4.2.7.2.686 Vahe as DARVIN?BLEA [phone] [address] MEDICAL OFFICE BUILDING 2022-12-01 2022-12-01 Patient Jimenez EVANS 1.2.840.114 [id number] [facility] 00:00:00 00:00:00 Secure Msg , Phylicia PEDIATRIC 350.1.13.10 ity of [place] [id number] [facility] PRIMARY [address] CARE CLINIC 2022-11-27 2022-11-27 Case [facility] 1.2.840.114 [id number] Univers 00:00:00 00:00:00 Management , Phylicia NICK 350.1.13.10 ity of [place] 4.2.7.2.686 Vahe as DARVIN?BLEA [phone] [address] MEDICAL OFFICE BUILDING 2022-11-27 2022-11-27 Telephone [facility] 1.2.840.114 [id number] Univers 00:00:00 00:00:00 , Phylicia SPAULDING 350.1.13.10 ity of [place] 4.2.7.2.686 Vahe as DARVIN?BLEA [id number] [address] MEDICAL OFFICE BUILDING 2022-11-25 2022-11-25 [facility] 1.2.840.114 [id number] Univers 14:00:00 23:59:00 Encounter , Phylicia INFANTE 350.1.13.10 ity of [place] [id number] [facility] [address] 2022-11-25 2022-11-25 Outpatient R [facility] [id number] Univers 11:45:00 13:59:00 , PHYLICIA it y of [facility] 2022-11-25 2022-11-25 Office [facility] 1.2.840.114 [id number] Univers 11:00:00 13:52:31 Visit , Phylicia SPAULDING 350.1.13.10 ity of [place] 4.2.7.2.686 Vahe as DARVIN?BLEA [id number] [address] OFFICE BUILDING 2022-11-13 2022-11-13 Office [facility] 1.2.840.114 [id number] Univers 10:00:00 10:30:00 Visit Tenisha INFANTE 350.1.13.10 i ty of [place] [id number] Wv dical NAL 085 [facility] 2022-11-13 2022-11-13 Outpatient R TENISHA KLEIN [facility] 10 [id number] Univers 10:00:00 10:00:00 TENISHA KLEIN i ty of [facility] 2022-11-13 2022-11-13 [facility] 1.2.256.871 [id number] Univers 00:00:00 00:00:00 Tenisha INFANTE 350.1.13.10 i ty of [place].2.[place] [phone] W[place] dicks NAL [address] [place] [address] 2022-10-12 2022-10-12 Letter [facility] 1.2.840.114 [id number] Univers 00:00:00 00:00:00 (Out) Miesha C [place] 350.1.13.10 i ty of [place].7.2.[place] [phone] W[place] dicks NAL [address] [place] [address] 2022-10-12 2022-10-12 Letter [facility] 1.2.840.114 [id number] Univers 00:00:00 00:00:00 (Out) Miesha C [place] 350.1.13.10 i ty [place].7.2.[place] [phone] [place] dic[address] 2022-10-02 2022-10-02 Outpatient R CIERRA [facility] [id number] Univers 14:00:00 16:02:35 MIKY duran of [facility] 2022-10-02 2022-10-02 Ancillary Therapist, [facility] Pulmonary [facility] 1.2.840.114 [id number] Univers 14:00:00 16:02:35 Visit Miky Norton 350.1.13. 10 ity of [place] [phone] [address] 2022-09-30 2022-09-30 Ancillary Therapist, [facility] Pulmonary [facility] 1.2.840.114 [id number] [facility] 10:00:00 11:38:17 Visit Miky Norton 350.1.13. 10 ity of [place].2.[place] [id number] W[place] dical NAL [address] [place] [address] 2022-09-30 2022-09-30 Orders Doctor MAXINE 1.2.840.114 [id number] Univers 00:00:00 00:00:00 Only Unassigned, CLARISSA 350.1.13.10 ity of [place] [facility] 4.2.7.2.686 Vahe as [id number] [address] 2022-09-23 2022-09-23 Ancillary Therapist, [facility] 1.2.840.114 [id number] [facility] 10:00:00 11:24:31 Visit Miky Norton 350.1.13. 10 ity of [place].2.[place] [phone] [facility] [address] 2022-09-21 2022-09-21 Ancillary Therapist, [facility] 1.2.840.114 [id number] [facility] 10:00:00 11:52:28 Visit Miky Norton 350.1.13. 10 ity of [place].2.[place] [phone] W[place] dical NAL [address] [place] [address] 2022-09-21 2022-09-21 Orders Doctor MAXINE 1.2.840.[id number] [place] [address] 00:00:00 00:00:00 Only Unassigned, CLARISSA 350.1.13.10 ity of [place] [facility] 4.2.7.2.686 Vahe as [phone] [address] 2022-09-16 2022-09-16 Ancillary Therapist, [facility]monary [facility] 1.2.840.114 [id number] [facility] 10:00:00 10:30:00 Visit Miky Norton 350.1.13. 10 it[place] of [place].2.[place] [id number] Wv dical NAL 296 [facility] 2022-09-15 2022-09-15 Ancillary Therapist, [facility] Pulmonary [facility] 1.2.840.114 [id number] Univers 10:00:00 11:06:22 Visit Miky Norton 350.1.13. 10 ity of [place].2.[place] [id number] Wv dical NAL 296 [facility] 2022-09-09 2022-09-09 Ancillary Therapist, [facility] Pulmonary [facility] 1.2.840.114 [id number] Univers 10:00:00 11:16:15 Visit Miky Norton 350.1.13. 10 ity [facility] 4.2.7.2.[place] [phone] Wv dical NAL [address] [place] [address] 2022-09-09 2022-09-09 Orders Doctor MAXINE 1..840.114 [id number] Univers 00:00:00 00:00:00 Only Unassigned, CLARISSA 350.1.13.10 ity of [place] [facility] 4.2.7.2.686 Vahe as [id number] [facility] [address] 2022-09-07 2022-09-07 Outpatient R TENISHA KLEIN [facility] 10 [id number] Univers 13:56:44 23:59:00 TENISHA KLEIN i ty of [facility] 2022-09-07 2022-09-07 [facility] Soocrro [facility] 1.2.840.114 [id number] Univers 13:56:44 23:59:00 Encounter Tenisha INFANTE 350.1.13.10 ity of [facility] 4.2.7.2.[place] [id number] [facility] [address] [place] 2022-09-07 2022-09-07 Ancillary Therapist, [facility] Pulmonary [facility] 1.2.840.114 [id number] Univers 10:00:00 12:59:10 Visit Miky Norton 350.1.13. 10 ity of [facility] 4.2.7.2.[place] [id number] Wv dical NAL [address] [place] [address] 2022-09-03 2022-09-03 Ancillary Therapist, [facility] Pulmonary [facility] 1.2.840.114 [id number] Univers 10:00:00 10:30:00 Visit Miky Norton 350.1.13. 10 ity of [facility] 4.2.7.2.[place] [phone] Wv dical NAL 296 [facility] 2022-09-03 2022-09-03 Orders Doctor MAXINE 1.2.840.114 [id number] Univers 00:00:00 00:00:00 Only Unassigned, CLARISSA 350.1.13.10 ity of [place] [facility] 4.2.7.2.686 Vahe as [id number] [address] 2022-08-31 2022-08-31 Ancillary Therapist, [facility] Pulmonary [facility] 1.2.840.114 [id number] Univers 10:00:00 10:30:00 Visit Miky Norton 350.1.13. 10 ity of [facility] 4.2.7.2.[place] [id number] Wv dical NAL 296 [facility] 2022-08-31 2022-08-31 Outpatient R CIERRA [facility] [id number] Univers 10:00:00 10:00:00 MIKY duran of [facility] 2022-08-31 2022-08-31 Patient Flavio [facility] 1.2.840.114 [id number] Univers 00:00:00 00:00:00 Secure [facility] 350.1.13.10 ity of [place] 4.2.7.2.686 Vahe as DARVIN?BLEA [phone] Wv dical KNEY [address] [place] MEDICAL OFFICE [facility] 2022-08-26 2022-08-26 Case Socorro [facility] 1.2.840.114 [id number] Univers 00:00:00 00:00:00 Management Tenisha INFANTE 350.1.13.10 ity of [place].2.[place] [id number] Wv dical NAL 085 [facility] 2022-08-24 2022-08-24 Outpatient R TENISHA KLEIN [facility] 10 [id number] Univers 12:20:05 23:59:00 TENISHA KLEIN i ty of [facility] 2022-08-24 2022-08-24 [facility] 1.2.840.114 [id number] Univers 12:20:05 23:59:00 Encounter Tenisha INFANTE 350.1.13.10 ity of [facility] 4.2.7.2.[place] [id number] [facility] [address] [place] 2022-08-24 2022-08-24 Office [facility] 1.2.840.114 [id number] Univers 11:00:00 12:08:35 Visit Tenisha INFANTE 350.1.13.10 i ty of [place].2.[place] [id number] [facility] 085 [facility] 2022-08-24 2022-08-24 Telephone [facility] 1.2.037.090 [id number] Univers 00:00:00 00:00:00 Miesha C [place] 350.1.13.10 i ty of [facility] 4.2.7.2.[place] [phone] Wv dicks NAL 296 [facility] 2022-08-19 2022-08-19 Telephone [facility] 1.2.002.567 [id number] Univers 00:00:00 00:00:00 Miesha C [place] 350.1.13.10 i ty of [place].7.2.[place] [phone] Wv dical NAL 296 [facility] 2022-08-17 2022-08-17 Telephone [facility] 1.2.045.660 [id number] Univers 00:00:00 00:00:00 Miesha C [place] 350.1.13.10 i ty of [place] 4.2.7.2.[place] [phone] W[place] dicks NAL [address] [place] [address] 2022-08-12 2022-08-12 Ancillary Therapist, [facility] 1.2.840.114 [id number] Univers 10:00:00 10:30:00 Visit Miky Norton 350.1.13. 10 ity of [place] 4.2.7.2.[place] [phone] Wv dical NAL [address] [place] [address] 2022-08-12 2022-08-12 Orders Doctor MAXINE 1.2.840.114 [id number] Univers 00:00:00 00:00:00 Only Unassigned, CLARISSA 350.1.13.10 ity of [facility] 4.2.7.2.686 [place] [phone] [address] 2022-08-10 2022-08-10 Ancillary Therapist, [facility] [place] 1.2.840.114 [id number] Univers 10:00:00 10:52:55 Visit Miky Norton 350.1.13. 10 it[place] of [place] [phone] [place] dic[address] 2022-08-10 2022-08-10 Orders Doctor GOODMAN 1.2.840.114 [id number] Univers 00:00:00 00:00:00 Only Unassigned, CLARISSA 350.1.13.10 ity of [place] [facility] 4.2.7.2.686 [place] [phone] [address] 2022-08-05 2022-08-05 Ancillary Therapist, [facility] 1.2.840.114 [id number] [facility] 10:00:00 10:54:53 Visit Miky Norton 350.1.13. 10 it[place] of [place] [phone] [place]ical [address] 2022-08-05 2022-08-05 Orders Doctor GOODMAN 1.2.840.114 [id number] Univers 00:00:00 00:00:00 Only Unassigned, CLARISSA 350.1.13.10 ity of [place] [facility] 4.2.7.2.686 [place] as [phone] [address] 2022-08-04 2022-08-04 Office Flavio [facility] 1.2.840.114 [id number] Univers 13:45:00 14:00:00 Visit Nghia [facility] 350.1.13.10 it y of [place] NARESH 4.2.7.2.686 [place] DARVIN?BLEA [phone] [place] shaq JESUS [address] [place] MEDICAL OFFICE [facility] [address] 2022-08-04 2022-08-04 Outpatient R FLAVIO [facility] [id number] Univers 13:45:00 13:55:13 NGHIA ity [facility] 2022-08-04 2022-08-04 [facility] 1.2.884.940 [id number] Univers 00:00:00 00:00:00 Miesha Martell [place] 350.1.13.10 i ty [facility] [place] [phone] [place] dicskylar [facility] [address] [facility] 2022-08-03 2022-08-03 Orders Doctor MAXINE 1.2.840.114 [id number] Univers 00:00:00 00:00:00 Only Unassigned, CLARISSA 350.1.13.10 ity of [place] [facility] 4.2.7.2.686 [place] [phone] [address] [address] 2022-07-31 2022-07-31 [facility] 1.2.840.114 [id number] Univers 12:12:07 23:59:00 Encounter Cliff Galan HEALTH 350.1.13.10 ity of [facility] 4.2.7.2.686 [place]he as DARVIN?BLEA [phone] [place] shaq JESUS [address] [place] MEDICAL OFFICE [facility] 2022-07-31 2022-07-31 Outpatient R MARICARMEN [facility] [id number] Univers 12:00:00 13:08:29 CLIFF ity of [facility] 2022-07-31 2022-07-31 Urgent Cliff Hernadez [facility] 1.2.840.1 14 [id number] Univers 12:00:00 12:20:00 Care Unknown, Attending HEALTH 350.1.13.10 ity of [facility] 4.2.7.2.686 Vahe as DARVIN?BLEA [phone] [place] dicskylar JESUS 370 [facility] OFFICE [facility] 2022-07-29 2022-07-29 Outpatient R CIERRA [facility] [id number] Univers 09:30:00 11:42:26 MIKY ity of [facility] 2022-07-29 2022-07-29 Ancillary Therapist, Adc Pulmonary [facility] 1.2.840.114 [id number] Univers 09:30:00 11:42:26 Visit Miky Norton 350.1.13. 10 ity of [place] [phone] [place] dical NAL 296 [facility] 2022-07-29 2022-07-29 Orders Doctor MAXINE 1.2.840.114 [id number] Univers 00:00:00 00:00:00 Only Unassigned, CLARISSA 350.1.13.10 ity of [place] [facility] 4.2.7.2.686 Vahe as [phone] [address] 2022-07-23 2022-07-23 Telephone Donald [facility] 1.2.511.601 [id number] Univers 00:00:00 00:00:00 Miesha INFANTE 350.1.13.10 i ty of [place].2.[place] [phone] [place] dical NAL 296 [facility] 2022-07-13 2022-07-13 Outpatient R TENISHA KLEIN [facility] 10 [id number] Univers 09:00:00 09:45:04 TENISHA KLEIN i ty of [facility] 2022-07-13 2022-07-13 [facility] 1.2.840.114 [id number] Univers 09:00:00 09:45:04 Visit Tenisha INFANTE 350.1.13.10 i ty of [place] [phone] [place] dical NAL 085 [facility] 2022-07-07 2022-07-07 Outpatient R TENISHA KLEIN [facility] 10 [id number] Univers 10:30:00 10:30:00 TENISHA KLEIN i ty of [facility] 2022-06-25 2022-06-25 Telephone Flavio [facility] 1.2.840.114 [id number] Univers 00:00:00 00:00:00 Nghia [facility] 350.1.13.10 it y of Demetri [place] 4.2.7.2.686 [place]he as DARVIN?BLEA [phone] [place] shaq [address] MEDICAL OFFICE BUILDING 2022-06-17 2022-06-17 Kst Operator Therapist, [facility] Respiratory [facility] 1.2.840.114 [id number] Univers 13:00:00 14:00:00 Visit NortonMiky rodriguez 350.1.13. 10 ity of [place] [phone] [facility] [address] [place] 2022-06-17 2022-06-17 Outpatient R CIERRA [facility] [id number] Univers 13:00:00 13:00:[address] [facility] 2022-06-17 2022-06-17 Orders SHARON Klein 1..266.726 [id number] Univers 00:00:00 00:00:00 Only [facility] 350.1.13.10 i ty of [facility] 4.2.7.2.686 [place] [phone] [facility] [address] [place] 2022-06-15 2022-06-15 Laboratory Only, [facility] Test [facility] 1.2.840. 114 [id number] Univers 14:00:00 14:15:00 Only Madison Benson 350.1.13. 10 ity of [facility] 4.2.7.2.[place] [phone] [facility] [address] [place] 2022-06-15 2022-06-15 Outpatient R MADISON BENSON [facility] [id number] Univers 14:00:00 14:00:00 [facility]22-03-27 2022-03-27 Office Socorro [facility] 1.2.840.114 [id number] Univers 11:30:00 12:00:00 Visit Tenisha INFANTE 350.1.13.10 i ty of [facility] 4.2.7.2.[place] [phone] Me dical NAL 085 [facility] 2022-03-27 2022-03-27 Outpatient R TENISHA KLEIN [facility] 10 [id number] Univers 11:30:00 11:30:00 TENISHA KLEIN i ty [facility] 2022-03-27 2022-03-27 Outpatient R TENISHA KLEIN [facility] 10 [id number] Univers 11:30:00 11:30:00 TENISHA KLEIN i ty [facility] 2022-03-18 2022-03-18 [facility] [id number] Univers 09:56:32 23:59:00 [facility] 2022-03-18 2022-03-18 [facility] 1.2.840.114 [id number] Univers 09:56:32 23:59:00 Encounter [facility] 350.1.13.10 ity of [facility] 4.2.7.2.686 Vahe as DARVIN?BLEA [phone] [place] dicskylar JESUS 808 [facility] OFFICE [facility] 2022-03-18 2022-03-18 Kst Operator Lab, [facility] 1.2.840.1 14 [id number] Univers 11:00:00 11:15:00 Visit Juan Chanel [facility] 350.1.13.10 ity of [place] 4.2.7.2.686 Vahe as DARVIN?BLEA [phone] [place] dicskylar JESUS 353 [facility] OFFICE [facility] 2022-03-18 2022-03-18 Urgent Juan Chanel [facility] 1.2.840.114 [id number] Univers 09:40:00 09:58:04 Care [facility] 350.1.13.10 ity of [place] 4.2.7.2.686 Vahe as DARVIN?BLEA [phone] [place] dical EDIN 370 [facility] OFFICE [facility] 2022-03-18 2022-03-18 Outpatient [facility] [id number] Univers 09:56:32 09:56:32 CHANEL duran [facility] 2022-02-20 2022-02-20 Outpatient [facility] [id number] Univers 14:27:12 23:59:00 NGHIA lavinia [facility] 2022-02-20 2022-02-20 [facility] 1.2.905.691 [id number] Univers 14:27:12 23:59:00 Encounter Nghia SPAULDING 350.1.13.10 ity of [place] 4.2.7.2.686 Vahe as DARVIN?BLEA [phone] [place] shaq JESUS [address] [place] MEDICAL OFFICE [facility] 2022-02-20 2022-02-20 Office [facility] 1.2.840.114 [id number] Univers 14:15:00 14:30:00 Visit Nghia [facility] 350.1.13.10 it y of [place] 4.2.7.2.686 Vahe as DARVIN?BLEA [phone] [place] shaq JESUS 044 [facility] OFFICE [facility] 2022-02-20 2022-02-20 Outpatient Santosh [facility] [id number] Univers 14:15:00 14:15:[address] [facility] 2022-02-11 2022-02-11 Telephone [facility] 1.2.840.114 [id number] Univers 00:00:00 00:00:00 [facility] 350.1.13.10 it y of [place] 4.2.7.2.686 [place]he as DARVIN?BLEA [phone] [place] hsaq [place] OFFICE [facility] 2022-02-03 2022-02-03 Outpatient R [facility] [id number] Univers 14:15:00 14:34:[address] [facility] 2022-02-03 2022-02-03 Office [facility] 1.2.840.114 [id number] Univers 14:15:00 14:30:00 Visit [facility] 350.1.13.10 it y of [place] 4.2.7.2.686 [place]he as DARVIN?BLEA [phone] [place] shaq [place] OFFICE [facility] 2022-02-03 2022-02-03 Outpatient [facility] [id number] Univers 14:15:00 14:15:00 NGHIA lavinia [facility] 2022-02-03 2022-02-03 Orders Doctor MAXINE 1.2.840.114 [id number] Univers 00:00:00 00:00:00 Only Unassigned, CLARISSA 350.1.13.10 ity of [place] [facility] 4.2.7.2.686 Vahe as [phone] [address] 2021-12-03 2021-12-03 Outpatient [facility] [id number] Univers 16:10:00 23:59:00 NGHIA lavinia [facility] 2021-10-11 2021-10-11 [facility] 1.2.840.114 [id number] Univers 00:00:00 00:00:00 Keenan INFANTE 350.1.13.10 i ty of [facility] 4.2.7.2.686 [place] [phone] [address] 2021-08-18 2021-08-18 Outpatient [facility] [id number] Univers 11:15:00 11:34:[address] [facility] 2021-08-18 2021-08-18 Office [facility] 1.2.840.114 [id number] Univers 11:05:50 11:34:47 Visit [facility] 350.1.13.10 it y of Demetri [place] 4.2.7.2.686 [place]he as DARVIN?BLEA [id number] [address] OFFICE [facility] 2021-07-10 2021-07-10 Refsherie [facility] 1.2.840.114 [id number] Univers 00:00:00 00:00:00 Nghia Infante 350.1.13.10 i ty of [place]2.[place].2.[place] [phone] [address] 2021-06-05 2021-06-05 Telephone [facility] 1.2.840.114 [id number] Univers 00:00:00 00:00:00 [facility] 350.1.13.10 it y of [place] 4.2.7.2.686 Vahe as Darvin?Blea [phone] [address] Office [facility] 2021-06-04 2021-06-04 Office [facility] 1.2.840.114 [id number] Univers 10:05:38 10:20:38 Visit [facility] 350.1.13.10 it y of [place] 4.2.7.2.686 [place]he as Darvin?Blea [phone] [address] Office [facility] 2021-06-04 2021-06-04 Outpatient [facility] [id number] Univers 10:15:00 10:15:00 [facility] 2021-05-16 2021-05-16 Outpatient [facility] [id number] Univers 13:15:00 13:15:00 [facility] 2021-05-14 2021-05-14 Outpatient R [facility] [id number] Univers 10:00:00 10:00:00 [facility] 2021-05-14 2021-05-14 Office [facility] 1.2.840.114 [id number] Univers 09:43:36 09:58:36 Visit [facility] 350.1.13.10 it y of [place] 4.2.7.2.686 [place]he as Professio [phone] [address] One 2021-04-13 2021-04-13 Refill [facility] 1.2.840.114 [id number] Univers 00:00:00 00:00:00 Nghia Infante 350.1.13.10 i ty of [place].2.[place] [phone] [address] 2021-02-12 2021-02-12 Office [facility] 1.2.840.114 [id number] Univers 10:50:54 11:05:54 Visit [facility] 350.1.13.10 it y of [place] 4.2.7.2.686 [place] Professio [phone] [address] Office [facility] 2021-02-12 2021-02-12 Outpatient [facility] [id number] Univers 11:00:00 11:00:00 [facility] 2021-02-07 2021-02-07 [facility] 1.2.840.114 [id number] Univers 00:00:00 00:00:00 [facility] 350.1.13.10 it y of [place] 4.2.7.2.686 [place] Professio [phone] [address] One 2021-01-17 2021-01-17 Telephone [facility] 1.2.840.114 [id number] Univers 00:00:00 00:00:00 [facility] 350.1.13.10 it y of [place] 4.2.7.2.686 [place] Professio [phone] [address] One 2021-01-15 2021-01-15 Office [facility] 1.2.840.114 [id number] Univers 10:18:49 10:33:49 Visit [facility] 350.1.13.10 it y of [place] 4.2.7.2.686 [place] Professio [phone] [address] One 2021-01-15 2021-01-15 Outpatient [facility] [id number] Univers 10:30:00 10:30:00 [facility] 2021-01-15 2021-01-15 [facility] 1.2.840.114 [id number] Univers 00:00:00 00:00:00 [facility] 350.1.13.10 it y of [place] 4.2.7.2.686 [place] Professio [phone] [address] Office [facility] 2021-01-15 2021-01-15 Telephone [facility] 1.2.840.114 [id number] Univers 00:00:00 00:00:00 [facility] 350.1.13.10 it y of [place] 4.2.7.2.686 [place] Professio [phone] [address] Office [facility] 2020-12-09 2020-12-09 Outpatient R MOAR [facility] [id number] Univers 09:00:00 09:00:00 DORA ity [facility] 2020-12-09 2020-12-09 Outpatient R OMAR [facility] [id number] Univers 09:00:00 08:35:41 DORA ity [facility] 2020-11-14 2020-11-14 [facility] 1.2.986.284 [id number] Univers 14:32:33 23:59:00 Encounter Nghia [place] 350.1.13.10 ity of [place].2.7.2.686 [place] [id number] [address] 2020-11-14 2020-11-14 Outpatient Santosh MUNIZ [facility] [id number] Univers 00:00:00 00:00:[address] [facility] 2020-11-11 2020-11-11 Outpatient Santosh [facility] [id number] Univers 08:30:00 08:30:[address] [facility] 2020-10-06 2020-10-06 [facility] 1.2.840.114 [id number] Univers 00:00:00 00:00:00 Nghia [place] 350.1.13.10 i ty of [place]cas [place]2.7.2.686 [place] [phone] [place] dic[address] 2020-07-12 2020-07-12 [facility] 1.2.840.114 [id number] Univers 00:00:00 00:00:00 Nghia [place] 350.1.13.10 i ty of [facility] 4.2.7.2.686 [place] [phone] [place] dic[address] 2020-06-05 2020-06-05 Outpatient R [facility] [id number] Univers 11:00:00 11:00:00 NGHIA ity [facility] 2020-05-30 2020-05-30 Letter LewisMAXINE 1.2.840.114 [id number] Univers 00:00:00 00:00:00 (Out) Liliana ROMO 350.1.13.10 it y of [facility] 4.2.7.2.686 Vahe as [phone] [address] 2020-05-28 2020-05-28 Urgent Pob1, Acute Care Clinic [facility] 1. 2.840.114 [id number] Univers 13:08:46 13:28:46 [facility] 350.1.13.10 ity [facility] 4.2.7.2.686 [place] Professio [phone] [address] Office [facility] 2020-05-28 2020-05-28 Outpatient R [facility] [id number] Univers 13:20:00 13:20:00 ity [facility] 2020-04-05 2020-04-05 Telephone [facility] 1.2.840.114 [id number] Univers 00:00:00 00:00:00 Nghia Infante 350.1.13.10 i ty of [place].2.7.2.686 [place] [phone] [address] 2020-04-03 2020-04-03 Outpatient R [facility] [id number] Univers 16:30:00 16:30:00 NGHIA itlavinia [facility] 2020-04-03 2020-04-03 Office [facility] 1.2.840.114 [id number] Univers 12:52:51 13:07:51 Visit Nghia Infante 350.1.13.10 i ty of [place] 4.2.7.2.686 [place] [phone] [address] 2020-04-03 2020-04-03 Refill [facility] 1.2.840.114 [id number] Univers 00:00:00 00:00:00 Nghia Infante 350.1.13.10 i ty of [place] 4.2.7.2.686 [place] [phone] [place] dic[address] 2020-03-29 2020-03-29 Emergency Laurent Mcconnell [facility] 1.2.840.114 [id number] Univers 11:47:35 14:28:00 T Naresh 350.1.13.10 i ty of [place] 4.2.7.2.686 [place] [id number] [facility] [address] [place] 2020-03-29 2020-03-29 Refill [facility] 1.2.840.114 [id number] Univers 00:00:00 00:00:00 Nghia Infante 350.1.13.10 i ty of [place] 4.2.7.2.686 [place] [phone] [address] 2020-03-28 2020-03-28 Telephone [facility] 1.2.840.114 [id number] Univers 00:00:00 00:00:00 Nghia Infante 350.1.13.10 i ty of [place] 4.2.7.2.686 [place] [phone] [address] 2020-03-11 2020-03-11 Pre Visit [facility] 1.2.840.114 [id number] Univers 00:00:00 00:00:00 Outreach Nghia Infante 350.1.13.10 ity of [place] 4.2.7.2.686 [place] [phone] [place] dicks nal [address] [place] [address] 2020-03-06 2020-03-06 Office [facility] 1.2.840.114 [id number] Univers 14:40:24 14:55:24 Visit Nghia Infante 350.1.13.10 i ty of [place] 4.2.7.2.686 [place] [phone] [address] 2020-03-06 2020-03-06 Outpatient R [facility] [id number] Univers 14:45:00 14:45:00 NGHIA duran [facility] 2019-12-04 2019-12-04 Office Gail [facility] 1.2.840.114 [id number] Univers 13:27:10 14:24:49 Visit Debbie Spaulding 350.1.13.10 it y of [place] 4.2.7.2.686 [place]he [place] Professio [phone] [place] dical nal [address] [place] Office Building One 2019-12-04 2019-12-04 Outpatient R GAIL [facility] [id number] Univers 13:40:00 13:40:00 DEBBIE duran [facility] 2019-12-04 2019-12-04 Orders Doctor MAXINE 1.2.840.114 [id number] Univers 00:00:00 00:00:00 Only Unassigned, CLARISSA 350.1.13.10 ity of [place] [facility] 4.2.7.2.686 Vahe as [phone] [address] Results Test Description Test Time Test Comments Results Result Comments Source factory laborer procedure 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 Right and left coronary arteries are normal. Left ventriculography: Hand-injection showed normal wall motion. No aortic valve gradient. Coronary Findings Diagnostic Dominance: Co-dominantNo diagnostic findings have been documented.InterventionNo interventions have been documented.Left VentricleThe LV size is normal. The LV systolic function is normal. LV systolic pressure is normal. LV end diastolic pressure is normal. The ejection fraction is 50-55% by visual estimate.Mitral ValveThere is no mitral valve stenosis and no mitral valve prolapse evident. There is normal mitral valve motion. The annulus is normal.Aortic ValveThere is normal aortic valve motion. There is no aortic valve stenosis.Wall MotionThe following segments are normal: mid anterior, mid inferior, basilar anterior, basilar inferior, apical anterior and apical inferior. [facility] [id number] 00:44:43 Test Item Value Reference Interpretation Comments Range Interpretation Negative results do (test code = not preclude COVID-19 2587816) infection and should not be used asthe sole basis for treatment or other patient management decisions. Negativeresults must be combined with clinical observations, patient history, andepidemiological information. COVID-19 Not-Detected Not-Detected DISCLAIMER:This qualitative RT-PCR test was result (test code performed using = 68007-2) the Chen umesh SARS-CoV-2 Asssaba kate (Brightfish). This assay is available for i n vitro diagnosti c use under Food and Drug Administration (FDA) Emergency Use Authorizati on (EUA) and has been verified f or clinical use by the [facility]. Information on the FDA policy for diagnostic tests for coronavirus disease- 2019 i s available at:https://www. fd a.gov/medical-d ev ices/emergency- si tuations-medica l- devices/faqs-di ag nostic-testing- sa rs-cov-2It is critical that health care providers and patients review the applicable fact sheet(s) i n interpreting or understanding t he test results th at are available upon request.METHODO LO GY:This assay utilizes reagen ts for nucleic aci d extraction, amplification, and real-time reverse edge banding machine offbearer polymerase tierra n reaction. COVID-19 See link below for PDF Case Number: qualitative RT-PCR Lab Report [id number] PDF (test code = 7070) [facility] RNA [Presence] in Respiratory specimen by LESLIE with probe [id number] 18:44:43 Test Item Value Reference Range Interpretation Comments SARS-CoV-2 (COVID-19) RNA Not detected [Presence] in Respiratory specimen by LESLIE with probe detection (test code = 98364-7) Whether patient is employed in a Unknown healthcare setting (test code = 96392-6) Whether the patient has symptoms Unknown related to condition of interest (test code = 73870-5) Whether the patient was Unknown hospitalized for condition of interest (test code = 24566-5) Whether the patient was admitted Unknown to intensive care unit (ICU) for condition of interest (test code = 29000-4) Whether patient resides in a Unknown congregate care setting (test code = 14376-2) status (test code = Unknown 11169-4) Date and time of symptom onset Unknown (test code = 37400-9) [facility] [id number] 17:27:10 Test Item Value Reference Range Interpretation Comments POCT Molecular FluA (test code = Negative Negative 71642-2) POCT Molecular FluB (test code = Negative Negative 77948-1) Lab Interpretation (test code = Normal 40645-9) [facility] (BINAX NOW)2022-07-31 17:16:00 Test Item Value Reference Range Interpretation Comments POCT SARS-COV-2 ANTIGEN (test Not Detected Not Detected code = 34274-3) On board controls acceptable Yes with C Line (test code = 3574) Lab Interpretation (test code = Normal 91427-6) [facility] (RESULTS)2022-06-17 18:02:07 Test Item Value Reference Range Interpretation Comments FVC Actual (test code = 3994) 2.48 L FEV1 Actual (test code = 3993) 1.48 L FEV1/FVC Actual (test code = 3995) 60 % [facility]
[2023-04-09] MEDS ORDERED: POTASSIUM CL SA 10 MEQ TAB PO ONE (16:02)
--- NOTE | 2023-04-09 17:05 | ER ---
Nurse's Notes [facility] Name: Venita Ernst Age: 72 yrs Sex: Female : 1950 Arrival Date: 04/09/2023 Time: 14:30 Bed 2 Private MD: Diagnosis: Aspiration pneumonitis, vomiting, hypoxia Presentation: 04/09 14:30 Chief complaint: EMS states: was the GI center having a colonoscopy and began vomiting aa5 during the procedure, multiple vomiting episodes, 1 witnessed by EMS upon arrival. 22G to R FA by GI center and was also given 4 mg Zofran by GI center. EMS reports O2 sat was 80's on RA and increased to 92% via 2 L NC. 14:30 Coronavirus screen: At this time, the client does not indicate any symptoms associated aa5 with coronavirus-19. Ebola Screen: Patient denies travel to an Ebola-affected area in the 21 days before illness onset. Initial Sepsis Screen: Does the patient meet any 2 criteria? HR > 90 bpm. Does the patient have a suspected source of infection? No. Patient's initial sepsis screen is negative. Risk Assessment: Do you want to hurt yourself or someone else? Patient reports no desire to harm self or others. Onset of symptoms was April 09, 2023. 14:30 Acuity: MITCHEL 2 aa5 14:30 Method Of Arrival: EMS: [facility] aa5 Historical: - Allergies: 14:30 Sulfa (Sulfonamide Antibiotics); aa5 - PMHx: 14:30 COPD; Back Problems; Tremors; aa5 - Immunization history:: Adult Immunizations unknown. - Social history:: Smoking status: Patient reports the use of cigarette tobacco products, smokes one pack cigarettes per day. Screenin:30 [facility] ED Fall Risk Assessment (Adult) History of falling in the last 3 months, aa5 including since admission No falls in past 3 months (0 pts) Confusion or Disorientation No (0 pts) Intoxicated or Sedated No (0 pts) Impaired Gait No (0 pts) Mobility Assist Device Used No (0 pt) Altered Elimination No (0 pt) Score/Fall Risk Level 0 - 2 = Low Risk Oriented to surroundings, Maintained a safe environment, Educated pt \T\ family on fall prevention, incl call for assistance when getting out of bed. Abuse screen: Denies threats or abuse. Nutritional screening: No deficits noted. Tuberculosis screening: No symptoms or risk factors identified. Assessment: 14:30 General: Appears comfortable, Behavior is calm, cooperative. Pain: Denies pain. Neuro: aa5 Level of Consciousness is awake, alert, obeys commands, Oriented to person, place, time, situation. Cardiovascular: Heart tones S1 S2 present Rhythm is regular. Respiratory: Airway is patent Respiratory effort is even, unlabored, Respiratory pattern is regular, symmetrical, Breath sounds are diminished bilaterally. Denies shortness of breath. GI: Abdomen is round non-distended, Bowel sounds present X 4 quads. Abd is soft X 4 quads Reports nausea, vomiting, Reports nausea has improved after Zofran administration by GI center. : No signs and/or symptoms were reported regarding the genitourinary system. EENT: No signs and/or symptoms were reported regarding the EENT system. Derm: Skin is pink, warm \T\ dry. Musculoskeletal: Range of motion: intact in all extremities. 15:23 Reassessment: Patient is alert, oriented x 3, equal unlabored respirations, skin cm10 warm/dry/pink. Assumed care of patient at 1500. Pt complaining of nausea and medicated per MAR. Pt currently A\T\Ox4, respirations even and unlabored on 2L via NC. Pt and pts family updated on plan of care. Call light in reach. Warm blanket provided. Care ongoing. 16:50 Reassessment: Pt able to tolerate PO challenge. cm10 19:15 General: Appears in no apparent distress. uncomfortable, well groomed, well developed, pf1 Behavior is calm, cooperative, appropriate for age, quiet. 19:15 Pain: Complains of pain in sore throat pain of 8 when swallowing. Neuro: Level of pf1 Consciousness is awake, alert, obeys commands, Oriented to person, place, time, situation. Cardiovascular: No deficits noted. Capillary refill < 3 seconds Patient's skin is warm and dry. Respiratory: Airway is patent Respiratory effort is even, unlabored, Respiratory pattern is regular, symmetrical, Breath sounds are diminished bilaterally. GI: Abdomen is round non-distended, Bowel sounds present X 4 quads. Abd is soft X 4 quads Reports nausea, vomiting. : No deficits noted. No signs and/or symptoms were reported regarding the genitourinary system. EENT: No deficits noted. No signs and/or symptoms were reported regarding the EENT system. EENT: Reports pain in sore throat. Derm: No deficits noted. No signs and/or symptoms reported regarding the dermatologic system. Musculoskeletal: No deficits noted. No signs and/or symptoms reported regarding the musculoskeletal system. 20:00 Reassessment: Patient appears in no apparent distress at this time. Patient and/or pf1 family updated on plan of care and expected duration. Pain level reassessed. Patient is alert, oriented x 3, equal unlabored respirations, skin warm/dry/pink. Patient states symptoms have not improved. 20:05 Reassessment: attempted report, no answer. pf1 21:00 Reassessment: Patient appears in no apparent distress at this time. Patient and/or pf1 family updated on plan of care and expected duration. Pain level reassessed. Patient is alert, oriented x 3, equal unlabored respirations, skin warm/dry/pink. Patient states symptoms have not improved. Vital Signs: 14:30 BP 129 / 59; Pulse 98; Resp 18 S; Temp 97.7(TE); Pulse Ox 95% on 2 lpm NC; aa5 14:53 BP 140 / 73; Pulse 89; Resp 16 S; Pulse Ox 96% on 2 lpm NC; aa5 16:28 BP 147 / 72; Pulse 101; Pulse Ox 94% on 2 lpm NC; ap3 19:00 BP 152 / 73; Pulse 95; Resp 22; Temp 98.8; Pulse Ox 93% on R/A; Pain 7/10; pf1 20:00 BP 157 / 80; Pulse 93; Resp 23; Pulse Ox 94% on R/A; Pain 7/10; pf1 21:00 BP 157 / 75; Pulse 90; Resp 23; Pulse Ox 94% on R/A; Pain 7/10; pf1 19:00 Pain Scale: Adult pf1 20:00 Pain Scale: Adult pf1 21:00 Pain Scale: Adult pf1 ED Course: 14:30 Patient arrived in ED. aa5 14:30 Arm band placed on Patient placed in an exam room, on a stretcher. aa5 14:30 Patient has correct armband on for positive identification. Placed in gown. Bed in low aa5 position. Call light in reach. Side rails up X2. 14:30 Client placed on continuous cardiac and pulse oximetry monitoring. NIBP monitoring aa5 applied. 14:31 Mary Jo Sanders, YESSICA is Primary Nurse. aa5 14:33 Sherin Pratt MD is Attending Physician. sp3 14:36 Triage completed. aa5 14:49 Warm blanket given. school bus monitor on. Pulse ox on. NIBP on. mm9 14:50 Basic Metabolic Panel Sent. mm9 14:50 CBC with Diff Sent. mm9 14:50 LFT's Sent. mm9 14:50 Magnesium Sent. mm9 14:50 NT PRO-BNP Sent. mm9 14:50 PT-INR Sent. mm9 14:50 Troponin HS Sent. mm9 14:50 Initial lab(s) drawn, by me, sent to lab. EKG done, by ED staff, reviewed by Sherin Pratt MD. Inserted saline lock: 20 gauge in left antecubital area, using aseptic technique. Blood collected. Maintain EMS IV. Dressing intact. Site clean \T\ dry. 14:53 Radiology exam delayed due to lab results not completed at this time. (BUN/Creatinine) jg10 IV insertion attempt and/or patient not having appropriate IV at this time. 14:58 Report given to YESSICA Corrales. aa5 15:06 Savanna Ramos, YESSICA is Primary Nurse. cm10 17:03 CT Chest W/ Con In Process Unspecified. EDMS 17:05 Aaron Carvalho MD is Hospitalizing Provider. sp3 17:25 CXR XRAY In Process Unspecified. EDMS 19:00 No provider procedures requiring assistance completed. Inserted saline lock: 22 gauge pf1 in right antecubital area, using aseptic technique. 21:08 Patient admitted, IV remains in place. pf1 Administered Medications: 15:06 Drug: Ondansetron IVP 4 mg Route: IVP; Site: left antecubital; cm10 16:24 Follow up: Response: No adverse reaction cm10 16:50 Drug: Potassium Chloride PO 40 mEq Route: PO; cm10 19:00 Follow up: Response: No adverse reaction; Marked relief of symptoms pf1 17:54 Drug: Ampicillin-Sulbactam Sodium IVPB 3 grams Route: IVPB; Infused Over: 30 mins; cm10 Site: right antecubital; 19:00 Follow up: Response: No adverse reaction; Marked relief of symptoms; IV Status: pf1 Completed infusion; IV Intake: 100ml Medication: 20:06 VIS not applicable for this client. pf1 Intake: 19:00 IV: 100ml; Total: 100ml. pf1 Outcome: 17:05 Decision to Hospitalize by Provider. sp3 21:08 Admitted to Med/surg accompanied by tech, via wheelchair, room 401, with chart, Report pf1 called to YESSICA Dove 21:08 Condition: stable 21:08 Instructed on the need for admit, Demonstrated understanding of instructions. 21:08 Patient left the ED. pf1 Signatures: Dispatcher [employer] EDMS Mary Jo Sanders RN RN aa5 Chanel Roberson RN RN [email or web address] Sherin Pratt MD MD sp3 Joi Ramos mm9 Anni Dickens0 Rita Spence RN RN pf1 Savanna Ramos RN RN cm10 Corrections: (The following items were deleted from the chart) 14:41 14:30 Allergies: No Known Allergies; aa5 aa5
--- NOTE | 2023-04-09 17:05 | EDPHYS ---
Physician Documentation [facility] Name: Venita Ernst Age: 72 yrs Sex: Female : 1950 Arrival Date: 04/09/2023 Time: 14:30 Bed 2 Private MD: ED Physician Sherin Pratt HPI: 04/09 14:49 This 72 yrs old Female presents to ER via EMS with complaints of Vomiting during sp3 colonoscopy with aspiration. 14:49 72-year-old female with history of COPD, tremors now presents to the ED by EMS referred sp3 by Dr. Butler secondary to aspiration and coughing episode during a routine colonoscopy that was being performed. He stated that approximately correction through the procedure, patient awakened and had profuse emesis with likely aspiration and hypoxia after the procedure was halted. She continued to have pulse oxygenation in the 80s after being fully awake and transferred her to the ED for further evaluation. Patient states that her baseline pulse oxygenation is 97 to 98% on room air which she measures at home. She currently has complaints of coughing and mild difficulty breathing. She is also nauseated but has no abdominal pain, back pain, chest pain, neck pain, headache, fever, rash, or any other signs or symptoms at this time. Patient was prepped for her colonoscopy and currently has no diarrhea or has not had any bowel movements. Patient also states that she was told she needed a repeat CT scan of the chest secondary to some findings that she cannot recall at this time.. Historical: - Allergies: 14:30 Sulfa (Sulfonamide Antibiotics); aa5 - PMHx: 14:30 COPD; Back Problems; Tremors; aa5 - Immunization history:: Adult Immunizations unknown. - Social history:: Smoking status: Patient reports the use of cigarette tobacco products, smokes one pack cigarettes per day. ROS: 14:52 Constitutional: Negative for fever, chills, and weight loss, Eyes: Negative for injury, sp3 pain, redness, and discharge, ENT: Negative for injury, pain, and discharge, Neck: Negative for injury, pain, and swelling, Cardiovascular: Negative for chest pain, palpitations, and edema, Back: Negative for injury and pain, MS/Extremity: Negative for injury and deformity, Skin: Negative for injury, rash, and discoloration, Neuro: Negative for headache, weakness, numbness, tingling, and seizure, Psych: Negative for depression, anxiety, suicide ideation, homicidal ideation, and hallucinations, Allergy/Immunology: Negative for hives, rash, and allergies, Endocrine: Negative for neck swelling, polydipsia, polyuria, polyphagia, and marked weight changes, Hematologic/Lymphatic: Negative for swollen nodes, abnormal bleeding, and unusual bruising. 14:52 All other systems are negative. Exam: 14:52 Constitutional: This is a well developed, well nourished patient who is awake, alert, sp3 and in no acute distress. Head/Face: Normocephalic, atraumatic. Eyes: Pupils equal round and reactive to light, extra-ocular motions intact. Lids and lashes normal. Conjunctiva and sclera are non-icteric and not injected. Cornea within normal limits. Periorbital areas with no swelling, redness, or edema. ENT: Nares patent. No nasal discharge, no septal abnormalities noted. External auditory canals are clear. Oropharynx with no redness, swelling, or masses, exudates, or evidence of obstruction, uvula midline. Mucous membranes moist. Neck: Trachea midline, no thyromegaly or masses palpated, and no cervical lymphadenopathy. Supple, full range of motion without nuchal rigidity, or vertebral point tenderness. No Meningismus. Chest/axilla: Normal chest wall appearance and motion. Nontender with no deformity. No lesions are appreciated. Cardiovascular: Regular rate and rhythm with a normal S1 and S2. No gallops, murmurs, or rubs. Normal PMI, no JVD. No pulse deficits. Abdomen/GI: Soft, non-tender, with normal bowel sounds. No distension or tympany. No guarding or rebound. No evidence of tenderness throughout. Skin: Warm, dry with normal turgor. Normal color with no rashes, no lesions, and no evidence of cellulitis. MS/ Extremity: Pulses equal, no cyanosis. Neurovascular intact. Full, normal range of motion. Neuro: Awake and alert, GCS 15, oriented to person, place, time, and situation. Cranial nerves II-XII grossly intact. Motor strength 5/5 in all extremities. Sensory grossly intact. Cerebellar exam normal. Normal gait. Psych: Awake, alert, with orientation to person, place and time. Behavior, mood, and affect are within normal limits. 14:52 Respiratory: Coarse breath sounds bilaterally with pulse oxygenation dropping in the 84 to 85% range while not on oxygen. This resolves with 3 L nasal cannula.. 14:52 ECG was reviewed by the Attending Physician. EKG demonstrates normal sinus rhythm at 87 sp3 bpm with normal intervals, normal QRS, normal axis, normal ST/T-segment's without evidence of acute ischemia. Vital Signs: 14:30 BP 129 / 59; Pulse 98; Resp 18 S; Temp 97.7(TE); Pulse Ox 95% on 2 lpm NC; aa5 14:53 BP 140 / 73; Pulse 89; Resp 16 S; Pulse Ox 96% on 2 lpm NC; aa5 16:28 BP 147 / 72; Pulse 101; Pulse Ox 94% on 2 lpm NC; ap3 19:00 BP 152 / 73; Pulse 95; Resp 22; Temp 98.8; Pulse Ox 93% on R/A; Pain 7/10; pf1 20:00 BP 157 / 80; Pulse 93; Resp 23; Pulse Ox 94% on R/A; Pain 7/10; pf1 21:00 BP 157 / 75; Pulse 90; Resp 23; Pulse Ox 94% on R/A; Pain 7/10; pf1 19:00 Pain Scale: Adult pf1 20:00 Pain Scale: Adult pf1 21:00 Pain Scale: Adult pf1 MDM: 14:34 Patient medically screened. sp3 14:53 Data reviewed: vital signs, nurses notes, EMS record, lab test result(s), EKG, sp3 radiologic studies. ED course: 72-year-old female with history of COPD and back problems now presents with emesis and possible aspiration status post colonoscopy complication. Patient is feeling better at this time. Differential diagnosis includes aspiration, aspiration pneumonitis, aspiration pneumonia,, anesthesia related side effects, among others. I am not highly suspicious for acute coronary syndrome, infectious pneumonia, PE, aortic pathology, sepsis, shock, or any other critical findings at this time. Given her prior unknown pulmonary history, we will evaluate with CT scan of the chest with IV contrast as well as laboratory values and supplemental oxygen as needed. We will attempt weaning patient off oxygen if she tolerates to see where her current requirements are. Disposition pending work-up and patient course.. 04/09 14:34 Order name: Basic Metabolic Panel; Complete Time: 15:39 04/09 14:34 Order name: CBC with Diff; Complete Time: 15:39 04/09 14:34 Order name: LFT's; Complete Time: 15:39 04/09 14:34 Order name: Magnesium; Complete Time: 15:39 04/09 14:34 Order name: NT PRO-BNP; Complete Time: 15:39 04/09 14:34 Order name: PT-INR; Complete Time: 15:39 04/09 14:34 Order name: Troponin HS; Complete Time: 15:39 04/09 14:34 Order name: CT Chest W/ Con; Complete Time: 17:40 04/09 16:27 Order name: CXR XRAY; Complete Time: 17:40 04/09 14:34 Order name: EKG; Complete Time: 14:34 04/09 14:34 Order name: Cardiac monitoring; Complete Time: 14:35 04/09 14:34 Order name: EKG - Nurse/Tech; Complete Time: 14:50 04/09 14:34 Order name: IV Saline Lock; Complete Time: 14:35 04/09 14:34 Order name: Labs collected and sent; Complete Time: 14:50 04/09 14:34 Order name: O2 Per Protocol; Complete Time: 14:35 04/09 14:34 Order name: O2 Sat Monitoring; Complete Time: 14:35 sp3 Administered Medications: 15:06 Drug: Ondansetron IVP 4 mg Route: IVP; Site: left antecubital; cm10 16:24 Follow up: Response: No adverse reaction cm10 16:50 Drug: Potassium Chloride PO 40 mEq Route: PO; cm10 19:00 Follow up: Response: No adverse reaction; Marked relief of symptoms pf1 17:54 Drug: Ampicillin-Sulbactam Sodium IVPB 3 grams Route: IVPB; Infused Over: 30 mins; cm10 Site: right antecubital; 19:00 Follow up: Response: No adverse reaction; Marked relief of symptoms; IV Status: pf1 Completed infusion; IV Intake: 100ml Disposition Summary: 04/09/23 17:05 Hospitalization Ordered Hospitalization Status: Inpatient Admission sp3 Provider: Maia, Aaron sp3 Location: Telemetry/[facility]Sur (Inpatient) sp3 Condition: Stable sp3 Problem: new sp3 Symptoms: have worsened sp3 Bed/Room Type: Standard sp3 Room Assignment: 401(04/09/23 19:15) Diagnosis - Aspiration pneumonitis, vomiting, hypoxia sp3 Forms: - Medication Reconciliation Form sp3 - SBAR form sp3 Signatures: Dispatcher [employer] EDMS Mary Jo Sanders RN RN aa5 Indiana Beltran RN RN Sherin Stephenson MD MD sp3 Savanna Ramos RN RN cm10 Rita Spence RN pf1 Corrections: (The following items were deleted from the chart) 14:41 14:30 Allergies: No Known Allergies; aa5 aa5 14:52 14:49 72-year-old female with history of COPD, tremors now presents to the ED by EMS sp3 referred by Dr. Butler secondary to aspiration and coughing episode during a routine colonoscopy that was being performed. He stated that approximately correction through the procedure, patient awakened and had profuse emesis with likely aspiration and hypoxia after the procedure was halted. She continued to have pulse oxygenation in the 80s after being fully awake and transferred her to the ED for further evaluation. Patient states that her baseline pulse oxygenation is 97 to 98% on room air which she measures at home. She currently has complaints of coughing and mild difficulty breathing. She is also nauseated but has no abdominal pain, back pain, chest pain, neck pain, headache, fever, rash, or any other signs or symptoms at this time. Patient was prepped for her colonoscopy and currently has no diarrhea or has not had any bowel movements.. sp3 19:15 17:05 sp3 cg
[2023-04-09] MEDS ORDERED: NA CHLORIDE 0.9% 100 ML ONE (17:18)
[2023-04-09] MEDS ORDERED: AMPICILLIN/SULBACTAM 3GM/VIAL ONE (17:18)
--- NOTE | 2023-04-09 17:32 | RAD REPORT ---
EXAM DESCRIPTION: CT - Thorax W/ Con - 04/09/2023 5:02 pm CLINICAL HISTORY: aspiration COMPARISON: No comparisons TECHNIQUE: Axial thin cut images of the chest were obtained following intravenous administration of 100 mL Isovue-300. Multiplanar reformats were generated and reviewed. All CT scans are performed using dose optimization technique as appropriate and may include automated exposure control or mA/KV adjustment according to patient size. FINDINGS: Slightly irregularly marginated posterior right upper lobe peribronchovascular 8 millimete r nodule, see axial image 22/60. No other suspicious mass or infiltrate in the lung parenchyma. No pl eural thickening or pleural effusion. No pneumothorax. No abnormal mediastinal or hilar masses or lymphadenopathy seen. No significant aortic or pulmonary a rtery findings. Assessment is limited in the absence of IV contrast. No chest wall mass or abnormal axillary lymphadenopathy. Evaluation of the solid abdominal structures reveals a heterogeneous left adrenal ovoid nodule measur ing 2.1 x 2.0 centimeter. Bilateral breast implants in place, with suggestion of intracapsular implant rupture. IMPRESSION: No acute process within the chest. Right upper lobe peribronchovascular 8 millimeter nodule. According to Fleischner Society 2017 recomm endations, this should be re-evaluated by chest CT in 6- 12 months. If stable, subsequent follow-up c hest CT at 18-24 months would be recommended, which may be optional if the patient is low risk for barry ng cancer. Incidentally noted left adrenal 2.1 centimeter nodule. This is indeterminate, and can be further deya acterized on adrenal protocol MRI.
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
--- NOTE | 2023-04-09 19:01 | P.HP ---
Certification for Inpatient Patient admitted to: Observation With expected LOS: <2 Midnights Patient will require the following post-hospital care: None Practitioner: I am a practitioner with admitting privileges, knowledge of patient current condition, hospital course, and medical plan of care. Services: Services provided to patient in accordance with Admission requirements found in Title 42 Section 412.3 of the Code of Federal Regulations Patient History Date of Service: 04/09/23 Reason for admission: Aspiration History of Present Illness: 72-year-old female with history of COPD, GERD presents to the emergency department with chief complaint of shortness of breath. She had an outpatient colonoscopy today which was performed because she has been having ongoing diarrhea and nausea over the course of the last 2 months. During her colonoscopy she had copious amounts of vomiting and appeared to aspirate per GI staff/EMS. She was persistently hypoxic on scene with sats in the 80s, he was transported to the emergency department for further evaluation. Her labs show a white blood cell count of 10.10 potassium 3.1 glucose 117 chest x-ray is negative for acute findings CT of the chest without contrast was performed which showed no acute findings but did note incidental findings which were discussed with the patient. She is still having nausea, vomiting, tachypnea, dyspnea and satting around 90% on room air. ED read wishes to admit for suspected aspiration pneumonitis, nausea/vomiting. - Past Medical/Surgical History -: COPD -: GERD -: Cholecystectomy -: Hysterectomy Psychosocial/ Personal History: Patient lives at home with family - Family History Family History: Reviewed- Non-Contributory - Social History Smoking Status: Current every day smoker Alcohol use: No CD- Drugs: No Caffeine use: Yes Place of Residence: Home Review of Systems 10-point ROS is otherwise unremarkable Respiratory: Cough, Shortness of Breath, SOB with Excertion Gastrointestinal: Nausea, Diarrhea Physical Examination - Physical Exam General: Alert, In no apparent distress, Oriented x3 HEENT: Atraumatic, PERRLA, Mucous membr. moist/pink, EOMI, Sclerae nonicteric Neck: Supple, 2+ carotid pulse no bruit, No LAD, Without JVD or thyroid abno rmality Respiratory: Normal air movement, Diminished Cardiovascular: No edema, Regular rate/rhythm, Normal S1 S2 Capillary refill: <2 Seconds Gastrointestinal: Normal bowel sounds, No tenderness Musculoskeletal: No tenderness Integumentary: No rashes Neurological: Normal speech, Normal strength at 5/5 x4 extr, Normal tone, Normal affect - Studies Laboratory Data (last 24 hrs) 04/09/23 14:48: PT 12.4, INR 1.13 04/09/23 14:48: WBC 10.10, Hgb 13.1, Hct 39.8, Plt Count 304 04/09/23 14:48: Sodium 139, Potassium 3.1 L, BUN 8, Creatinine 0.86, Glucose 117 H, Magnesium 2.4, Total Bilirubin 0.4, AST 11 L, ALT 19, Alkaline Phosphatase 151 H Assessment and Plan - Plan Assessment: Dyspnea, tachypnea, hypoxia secondary to suspected aspiration pneumonitis with history of COPD Incidental CT findings Persistent diarrhea, nausea GERD Plan: Dyspnea, tachypnea, hypoxia secondary to suspected aspiration pneumonitis with history of COPD Continue as needed supplemental oxygen, IV fluids, empiric IV antibiotics. As needed nebulizer treatments. Daily room air saturations, and symptoms primary. Incidental CT findings Right upper lobe peribronchovascular 8 millimeter nodule. According to Fleischner Society 2017 recommendations, this should be re-evaluated by chest CT in 6- 12 months. If stable, subsequent followup chest CT at 18-24 months would be recommended, which may be optional if the patient is low risk for lung cancer. Incidentally noted left adrenal 2.1 centimeter nodule. This is indeterminate, and can be further characterized on adrenal protocol MRI These were discussed with patient/family, provided with copy of results. Persistent diarrhea, nausea Continue outpatient GI workup GERD Continue home meds. DVT PPX: Lovenox Code status: Full Discharge Plan: Home Plan to discharge in: 24 Hours - Advance Directives Does patient have a Living Will: No Does patient have a Durable POA for Healthcare: No - Code Status/Comfort Care Code Status Assessed: Yes (Full code) Critical Care: No Time Spent Managing Pts Care (In Minutes): 55
[2023-04-09] MEDS ORDERED: cloNIDine HCL 0.1 MG TAB ONE (20:24)
[2023-04-09] MEDS ORDERED: NA CHLORIDE 0.9% 0 ML ONE (20:24)
[2023-04-09 21:21] VITALS: BMI 28.1
[2023-04-09] MEDS ORDERED: ALBUTEROL 2.5 MG/3 ML NEB SOL NEB PRN (21:21)
[2023-04-09] MEDS ORDERED: PROMETHAZINE INJ 25 MG/ML AMP IV PRN (21:21)
[2023-04-09] MEDS ORDERED: PHENOL 1.4% ORAL SPRAY 180ML MM PRN (21:21)
[2023-04-09] MEDS ORDERED: ONDANSETRON 4 MG/2 ML VIAL IV PRN (21:21)
[2023-04-09] MEDS ORDERED: ACETAMINOPHEN 500 MG TAB PO PRN (21:21)
[2023-04-09] MEDS: BENZONATATE 100 MG CAP PO PRN (21:54)
[2023-04-09] MEDS: MELATONIN 5 MG TABLET PO PRN (21:55)
[2023-04-09] MEDS: NA CHLORIDE 0.9% 1,000 ML IV SCH (21:58)
[2023-04-10] MEDS: PIPER TAZO 3.375 GM in NA CHLORIDE 0.9% 100 ML IV SCH ×3 (01:03→17:33)
[2023-04-10 04:36] LABS: Absolute Lymphocytes (CBC) 2.6 K/uL (0.7-4.9); Hematocrit 36.5 % (36.0-45.0); Lymphocytes % 28.3 % (15.3-44.8); MCV 89.1 fL (80-100); MPV 7.3 fL (7.6-11.3); RBC Red Blood Cell Count 4.09 M/uL (3.86-4.86)
[2023-04-10 04:50] LABS: Magnesium 2.5 mg/dL (1.6-2.4); Potassium 4.1 mEq/L (3.5-5.1)
[2023-04-10] MEDS: NA CHLORIDE 0.9% 1,000 ML IV SCH ×2 (07:21→17:33)
[2023-04-10] MEDS: ENOXAPARIN 40 MG/0.4 ML SQ SCH (07:58)
[2023-04-10] MEDS ORDERED: PNEUMOCOCCAL VACCINE 0.5 ML IMVAC ONE (10:00)
--- NOTE | 2023-04-10 16:18 | EKG ---
Test Date: 2023-04-09 Test Time: 14:49:24 Case Preparer And Liner: MEGAN MEASUREMENT RESULTS: Intervals: Rate: 87 IA: 188 QRSD: 106 QT: 408 QTc: 490 [place]: P: 72 IA: 188 QRS: 23 T: 58 INTERPRETIVE STATEMENTS: Normal sinus rhythm Prolonged QT Abnormal ECG No previous ECG available for comparison Electronically Signed On 04-10-23 16:16:41 CDT by Cornel Cuadra
[2023-04-10] MEDS ORDERED: PANTOPRAZOLE 40MG TABLET PO ONE (19:18)
[2023-04-10] MEDS: MELATONIN 5 MG TABLET PO PRN (19:55)
[2023-04-10] MEDS: BENZONATATE 100 MG CAP PO PRN (19:55)
--- NOTE | 2023-04-10 20:34 | P.PN ---
Subjective Date of Service: 04/10/23 Chief Complaint: Aspiration No acute events overnight. She reports that she feels well; however, her SpO2 is maintaining at 90 % on room air. She denies any chest pain, palpitations, or shortness of breath. Plan to have her ambulate with RN today and monitor SpO2 readings. Review of Systems 10-point ROS is otherwise unremarkable Physical Examination - Vital Signs Temperature: 97.9 F Blood Pressure: 137/67 Pulse: 70 Respirations: 16 Pulse Ox (%): 90 - Physical Exam General: Alert, In no apparent distress, Oriented x3 HEENT: Atraumatic, Mucous membr. moist/pink, Sclerae nonicteric Neck: JVD not distended Respiratory: Diminished Cardiovascular: No edema, Regular rate/rhythm, Normal S1 S2, No gallops, No rubs, No murmurs Gastrointestinal: Normal bowel sounds, Soft and benign, Non-distended Musculoskeletal: No clubbing Integumentary: No rashes Neurological: Normal speech, Normal affect Assessment And Plan - Plan # Aspiration Pneumonitis on Chronic Obstructive Pulmonary Disease # SIRS Criteria (Tachycardia, Tachypnea) due to above - no current source of infection Pulmonology consulted recommendations appreciated - Chest x-ray = "no acute cardiopulmonary process. Chronic interstitial changes suggestive of COPD." - Currently, no evidence of aspiration pneumonia. Started on empiric piperacillin-tazobactam - Follow-up chest x-ray in the morning - Requested ambulatory oxygen readings # Right Upper Lobe Nodule (8 mm) # Left Adrenal Nodule (2.1 cm x 2.0 cm) # Intracapsular Breast Implant Rupture - CT chest = "no acute process within the chest. Right upper lobe peribronchovascular 8 millimeter nodule. According to Fleischner Society 2017 recommendations, this should be re-evaluated by chest CT in 6- 12 months. If stable, subsequent followup chest CT at 18-24 months would be recommended, which may be optional if the patient is low risk for lung cancer. Incidentally noted left adrenal 2.1 centimeter nodule. This is indeterminate, and can be further characterized on adrenal protocol MRI." - Noted on CT scan. She was advised to follow-up with her PCP for surveillance imagining and further evaluation # Tobacco Use Disorder - Tobacco cessation counseling provided # Gastroesophageal Reflux Disease - Continue home pantoprazole Aaron Carvalho M.D.
[2023-04-10] MEDS ORDERED: DULERA 100/5 (MOMETASONE/FORMOTEROL) INHALER IH SCH (21:00)
[2023-04-11] MEDS: PIPER TAZO 3.375 GM in NA CHLORIDE 0.9% 100 ML IV SCH ×2 (01:02→08:35)
[2023-04-11 04:02] LABS: Lymphocytes % 26.9 % (15.3-44.8); MCV 89.2 fL (80-100); MPV 7.3 fL (7.6-11.3); RBC Red Blood Cell Count 3.92 M/uL (3.86-4.86)
[2023-04-11 04:16] LABS: Magnesium 2.5 mg/dL (1.6-2.4); Potassium 3.7 mEq/L (3.5-5.1)
[2023-04-11 05:46] VITALS: O2SAT 91
[2023-04-11] MEDS ORDERED: PANTOPRAZOLE 40MG TABLET PO SCH (06:30)
[2023-04-11] MEDS: ENOXAPARIN 40 MG/0.4 ML SQ SCH (08:30)
--- NOTE | 2023-04-11 08:41 | RAD REPORT ---
EXAM DESCRIPTION: [place] Single View04/11/2023 7:04 am CLINICAL HISTORY: follow-up aspiration COMPARISON: Chest Single View dated 04/09/2023; Thorax W/ Con dated 04/09/2023 TECHNIQUE: Portable AP view of the chest. FINDINGS: The lungs are clear. Stable mildly prominent interstitial changes, may relate to COPD. Tri angular nodular opacity in the peripheral right midlung probably correlates to the small nodule seen on CT. No pneumothorax or effusion. The cardiomediastinal contours are unremarkable. IMPRESSION: No acute cardiopulmonary process. Stable findings as above.
[2023-04-11] MEDS ORDERED: PIPERACIL/TAZO 3.375 GM VIAL IV ONE (08:42)
--- NOTE | 2023-04-11 08:46 | P.DS ---
Admission Date: 04/09/23 Discharge Date: 04/11/23 Disposition: ROUTINE DISCHARGE Discharge Condition: GOOD Reason for Admission: Aspiration Consultations: 1. Pulmonology Hospital Course: DIAGNOSES: # Aspiration Pneumonitis on Chronic Obstructive Pulmonary Disease # SIRS Criteria (Tachycardia, Tachypnea) due to above - no current source of infection # Right Upper Lobe Nodule (8 mm) # Left Adrenal Nodule (2.1 cm x 2.0 cm) # Intracapsular Breast Implant Rupture # Tobacco Use Disorder # Gastroesophageal Reflux Disease HOSPITAL COURSE: Ms. Venita Ernst is a pleasant 72 year old female with a past medical history significant for chronic obstructive pulmonary disease, tobacco use disorder, and gastroesophageal reflux disease who was admitted to the [facility] on 04/09/2023 for an aspiration event during her outpatient colonscopy. She was admitted to the Medicine service. Upon further evaluation, her chest x- ray revealed, "no acute cardiopulmonary process. Chronic interstitial changes suggestive of COPD." Her CT chest revealed, "no acute process within the chest. Right upper lobe peribronchovascular 8 millimeter nodule. According to Fleischner Society 2017 recommendations, this should be re-evaluated by chest CT in 6- 12 months. If stable, subsequent followup chest CT at 18-24 months would be recommended, which may be optional if the patient is low risk for lung cancer. Incidentally noted left adrenal 2.1 centimeter nodule. This is indeterminate, and can be further characterized on adrenal protocol MRI." She was placed on IV antibitiocs and monitored for signs of aspiration pneumonia. At rest, she was maintaining SpO2 readings in the low-90s. Today, she ambulated with nursing staff and maintained SpO2 readings between 95-96 %. A follow-up chest x-ray obtained this morning revealed, "no acute cardiopulmonary process." Pulmonology was consulted and I reviewed her case with Dr. Rico. He states that, since she appears well clinically, he recommends discharge home with outpatient follow-up. Regarding her pulmonary and adrenal nodules noted on the CT scan. She was counseled extensively on the importance of outpatient follow-up as these have the potential to be cancer. She was advised to follow-up with her PCP and Pulmonology for further evaluation. She was provided a printed copy of her Radiology report to bring to her outpatient providers. On 04/11/2023, she was seen on morning rounds and deemed medically stable for discharge. She was discharged with instructions to schedule follow-up appoint ments with her PCP (Dr. Holguin) and with Pulmonology (Dr. Rico). She was provided a prescription for amoxicillin-clavulanate. She was given the opportunity to ask questions and reported no further questions. Furthermore, all questions were answered to the best of my ability. A copy of this discharge summary will be sent to the above providers to facilitate continuity of care. Today, I personally spent 25 minutes on her case, of which greater than 50% of the time was spent in patient education, counseling, and coordination of care as described above. - Physical Exam General: Alert, In no apparent distress, Oriented x3 HEENT: Atraumatic, Mucous membr. moist/pink, Sclerae nonicteric Respiratory: Diminished, but clear to auscultation Cardiovascular: No edema, Regular rate/rhythm, No murmurs Gastrointestinal: Normal bowel sounds, Soft, Non-distended Musculoskeletal: No clubbing Integumentary: No rashes Neurological: Normal speech, Normal affect Vital Signs/Physical Exam: Temp Pulse Resp BP Pulse Ox 98.2 F 63 16 149/68 H 96 04/11/23 04:00 04/11/23 04:00 04/11/23 04:00 04/11/23 04:00 04/11/23 04:00 Laboratory Data at Discharge: WBC 7.30 thou/uL (4.3-10.9) 04/11/23 03:29 Hgb 11.6 g/dL (12.0-15.0) L 04/11/23 03:29 Hct 35.0 % (36.0-45.0) L 04/11/23 03:29 Plt Count 276 thou/uL (152-406) 04/11/23 03:29 PT 12.4 SECONDS (9.5-12.5) 04/09/23 14:48 INR 1.13 04/09/23 14:48 Sodium 139 mEq/L (136-145) 04/11/23 03:29 Potassium 3.7 mEq/L (3.5-5.1) 04/11/23 03:29 BUN 10 mg/dL (7-18) 04/11/23 03:29 Creatinine 0.91 mg/dL (0.55-1.02) 04/11/23 03:29 Glucose 110 mg/dL (74-106) H 04/11/23 03:29 Magnesium 2.5 mg/dL (1.6-2.4) H 04/11/23 03:29 Total Bilirubin 0.4 mg/dL (0.2-1.0) 04/09/23 14:48 AST 11 U/L (15-37) L 04/09/23 14:48 ALT 19 U/L (13-56) 04/09/23 14:48 Alkaline Phosphatase 151 U/L (45-117) H 04/09/23 14:48 Home Medications: RX: Budesonide/Formoterol Fumarate [Symbicort 160-4.5 Mcg Inhaler] 2 aero IH BID 04/09/23 RX: Omeprazole 20 mg PO DAILY 04/09/23 RX: Propranolol [Inderal LA*] 90 mg PO DAILY 04/09/23 Amox/Clavulanate [Augmentin 875-125 Tab] 875 mg PO BID 7 Days #14 tab 04/11/23 New Medications: Amox/Clavulanate [Augmentin 875-125 Tab] 875 mg PO BID 7 Days #14 tab Physician Discharge Instructions: 1. Please call and schedule a follow-up appointment with your PCP (Dr. Gaona) in 3-5 days - Your CT scan showed a spot on your right lung (8 mm) and a spot on your left adrenal gland (21 mm). It is important to make sure these spots do not represent cancer. Please have your PCP repeat a CT scan in 3-6 months for your lung and and an MRI for your adrenal gland. Please have PCP further evaluate as needed. 2. Please call and schedule a follow-up appointment with Pulmonology (Dr. Rico) in 5-7 days Diet: AHA Activity: Ad ethan Followup: Andrés Rico MD [ACTIVE - CAN ADMIT] - OOT,OOT [Primary Care Provider] -
[2023-04-11 08:51] VITALS: BP 145/88; TEMP 97.5
[2023-04-11] MEDS ORDERED: SYMBICORT IH SCH (09:00)
[2023-04-11] MEDS ORDERED: PROPRANOLOL 60 MG TABLET PO SCH (09:00)
[2023-04-11] MEDS ORDERED: POTASSIUM CL SA 10 MEQ TAB PO ONE (09:00)
[2023-04-11] MEDS ORDERED: PROPRANOLOL HCL 80 MG SA CAP PO ONE (20:00)
== END 2023-04-11 09:49 | disposition home or self-care (01) ==
LOC: ER 14:30 → ERHOLD 18:43 → 4TH 20:04
PROVIDERS: ADMIT Internal Medicine; ATTEND Internal Medicine
DX: J69.0 Pneumonitis due to inhalation of food and vomit (principal); J44.9 Chronic obstructive pulmonary disease, unspecified; R19.7 Diarrhea, unspecified; R11.0 Nausea; K21.9 Gastro-esophageal reflux disease without esophagitis; R06.82 Tachypnea, not elsewhere classified; R09.02 Hypoxemia; R91.1 Solitary pulmonary nodule; D35.00 Benign neoplasm of unspecified adrenal gland; T85.43XA Leakage of breast prosthesis and implant, initial encounter; F17.210 Nicotine dependence, cigarettes, uncomplicated; Z71.6 Tobacco abuse counseling; Z98.890 Other specified postprocedural states
CPT/HCPCS: 96365; 93005; 85025 ×3; 80048 ×3; 36415 ×2; 83735 ×3; 85610; 80076; 84484; 83880; 71260; 71045 ×2; 94010; 96375; 99285; Q9967; J2543 ×6; J1650; J0295; J2405 ×2; J7030 ×2; G0378; J3535